=== PATIENT | female | born 1930 | race Hispanic/Latino ===

== ENCOUNTER 2016-06-14 23:21 | Inpatient (IN) | payer MEDICARE ==
--- NOTE | 2016-06-14 23:37 | C.PDOC ---
History Of Present Illness [facility] with worsening lower extremities edema, rash, worsening since friday, and some wheezing. 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 Rash is about the same, as per her daughter, but the blisters are new. No f/c/n/v, Speaking in complete sentences Time Seen by Provider: 06/14/16 23:37 Chief Complaint (Nursing): Lower Extremity Problem/Injury History Per: Patient, Family History/Exam Limitations: no limitations Onset/Duration Of Symptoms: Days Current Symptoms Are (Timing): Worse Severity: Moderate Pain Scale Rating Of: 4 Recent travel outside of the [place]: No Additional History Per: Family - Hip Description Of Injury: Other Past Medical History Reviewed: Historical Data, Nursing Documentation, Vital Signs Vital Signs: Last Vital Signs Temp 98.7 F 06/14/16 23:32 Pulse 113 H 06/14/16 23:32 Resp 24 06/14/16 23:32 BP 142/54 L 06/14/16 23:32 Pulse Ox 95 06/15/16 00:59 - Medical History PMH: Arthritis, Diverticulitis (Diverticulosis), Gastritis, HTN, Hypercholesterolemia Denies: Crohn's Disease, Gall Bladder Disease, HIV, Pancreatitis, Chronic Kidney Disease Surgical History: Tonsillectomy (1934) - [facility] Procedures DRAIN FACE & MOUTH FLOOR (11/25/13) SURG TOOTH EXTRACT NEC (11/25/13) Family History: States: No Known Family Hx - Social History Hx Alcohol Use: No Hx Substance Use: No - Immunization History Hx Tetanus Toxoid Vaccination: No Hx Influenza Vaccination: Yes Hx Pneumococcal Vaccination: Yes Review Of Systems Constitutional: Negative for: Fever, Chills ENT: Negative for: Throat Pain Cardiovascular: Negative for: Chest Pain, Palpitations Respiratory: Positive for: Wheezing Gastrointestinal: Negative for: Nausea, Vomiting, Abdominal Pain Genitourinary: Negative for: Dysuria Musculoskeletal: Positive for: Leg Pain, Foot Pain. Negative for: Back Pain Skin: Positive for: Rash (both legs), Bruising. Negative for: Lesions, Jaundice Neurological: Negative for: Weakness Psych: Negative for: Anxiety Physical Exam - Physical Exam Appears: Non-toxic Skin: Warm, Rash (erythema, ? bullae/blisters from below the knees( both legs)) Head: Atraumatic Eye(s): bilateral: Normal Inspection Oral Mucosa: Moist Throat: No Erythema Neck: Supple Chest: Symmetrical Cardiovascular: Rhythm Regular Respiratory: No Rales, No Rhonchi, Wheezing (few) Gastrointestinal/Abdominal: Soft, No Tenderness, No Distention Back: Normal Inspection Extremity: No Tenderness, Pedal Edema (pitting to mid thigh), Swelling, Other ( erythematous rash with few blisters both legs) Neurological/Psych: Oriented x3, Normal Speech, Normal Cognition Gait: Unable To Assess ED Course And Treatment - Laboratory Results Result Diagrams: 06/14/16 23:53 06/14/16 23:53 ECG: Interpreted By Me, Viewed By Me ECG Rhythm: Sinus Tachycardia (112), R BBB, Nonspecific Changes O2 Sat by Pulse Oximetry: 95 Pulse Ox Interpretation: Normal - Radiology CXR: Interpreted by Me, Viewed By Me CXR Interpretation: Yes: Other (top nl heart, unchanged from 05/28/16). No: Infiltrates, Fracture, Pnemothorax Progress Note: blood work, ivf,. spoke with dr rivero(icu) will come and see the pt in the ed Critical Care Time - Critical Care Note Total Time (in mins): 30 Documented critical care: time excludes all time spent performing seperately billable procedures. Disposition Discussed With : Yazmin Smith Comment: accepted the pt on his service and took over the care at 12:54 AM Doctor Will See Patient In The: ED Counseled Patient/Family Regarding: Studies Performed, Diagnosis - Disposition Disposition: HOSPITALIZED Disposition Time: 23:37 Condition: CRITICAL - POA Present On Arrival: Poor Glycemic Control - Clinical Impression Clinical Impression: Arterial, arteriole and capillary disease, Acute renal failure, Acidosis, CHF ( congestive heart failure), Hyponatremia
[2016-06-14 23:49] VITALS: BMI 25.8
[2016-06-14 23:58] LABS: LYMPH # 4.2 K/uL (1.0-4.3); MONO # 0.6 K/uL (0.0-0.8)
[2016-06-15 00:09] LABS: BASO % 0.1 % (0.0-2.0); HEMATOCRIT 23.1 % (34.0-47.0); LYMPH % 20.1 % (20.0-40.0); MEAN CELL VOLUME 93.9 fL (81.0-99.0); MEAN CORPUSCULAR HEMOGLOBIN 32.4 pg (27.0-31.0); MEAN CORPUSCULAR HGB CONC 34.5 g/dL (33.0-37.0); MEAN PLATELET VOLUME 8.2 fL (7.2-11.7); MONO % 2.9 % (0.0-10.0); NRBC % 0.1 % (0.0-2.0); RED CELL DISTRIBUTION WIDTH 15.2 % (11.5-14.5)
[2016-06-15 00:11] LABS: POTASSIUM 4.8 mmol/L (3.6-5.2)
[2016-06-15 00:12] LABS: VENOUS BLOOD GAS BASE EXCESS -20.8 mmol/L (0.0-2.0); VENOUS BLOOD GAS PCO2 35 mmHg (40-60); VENOUS BLOOD PH 7.03 (7.32-7.43)
[2016-06-15 00:13] LABS: ALB/GLOB RATIO 1.1 (1.0-2.1); BILIRUBIN,TOTAL 0.5 mg/dL (0.2-1.3); TOTAL PROTEIN 4.3 g/dL (6.3-8.3)
[2016-06-15 00:14] LABS: CALCIUM 6.6 mg/dl (8.6-10.4)
[2016-06-15 00:16] LABS: PLATELET COUNT 185 K/uL (130-400); WHITE BLOOD COUNT 20.8 K/uL (4.8-10.8)
[2016-06-15 00:36] LABS: INR 1.2
[2016-06-15 00:50] LABS: TROPONIN I 0.132 ng/mL (0.00-0.120)
--- NOTE | 2016-06-15 01:32 | CP.CCUPN ---
CCU Subjective - Physician Review Events Since Last Encounter (Free Text): 06/15/16 01:28 86yo [place] with swelling and erythema of legs. Pt was recently [place] [facility] [place] after being treated for UTI . Pt seen and examined at bedside. Pt stated that for the past one week her legs were getting more swollen and "more red". She went to see a environmental resource specialist who prescribed her ABx, however she did not see improvement and was told by PMD to go to ED. Pt denies any chills, fever, chest pain, palpitations, shortness of breath, cough, nausea, vomiting, diarrhea, dysuria. Pt is hemodynamically stable and is comfortable on NC , speaking full sentences. PMH: HTN, HLD, UTI, diverticulitis, CKD CCU Objective - Vital Signs / Intake & Output Vital Signs (Last 4 hours): Vital Signs Temp Pulse Resp BP Pulse Ox 06/15/16 00:59 95 06/14/16 23:32 98.7 F 113 H 24 142/54 L 95 Intake and Output (Last 8hrs): Intake & Output 06/14/16 06/14/16 06/15/16 14:59 22:59 06:59 Weight 145 lb 15.947 oz - Physical Exam Head: Positive for: Atraumatic, Normocephalic Pupils: Positive for: PERRL Conjunctiva: Positive for: Normal Mouth: Positive for: Moist Mucous Membranes Neck: Positive for: Normal Range of Motion Respiratory/Chest: Positive for: Clear to Auscultation, Good Air Exchange. Negative for: Respiratory Distress Cardiovascular: Positive for: Murmurs, Tachycardic Abdomen: Positive for: Normal Bowel Sounds. Negative for: Tenderness, Distention Back: Negative for: CVA Tenderness Upper Extremity: Positive for: Normal Inspection Lower Extremity: Positive for: Edema, Erythema Neurological: Positive for: Speech Normal, Motor Func Grossly Intact Skin: Positive for: Warm, Dry, Rashes (B\\L LE) Psychiatric: Positive for: Alert, Oriented x 3, Normal Insight - Patient Studies Lab Studies: Lab Studies 06/15/16 06/15/16 06/14/16 Range/Units 00:07 00:00 23:53 WBC 20.8 H D (4.8-10.8) K/uL RBC 2.46 L (3.80-5.20) Mil/uL Hgb 8.0 L (11.0-16.0) g/dL Hct 23.1 L (34.0-47.0) % MCV 93.9 (81.0-99.0) fL MCH 32.4 H (27.0-31.0) pg MCHC 34.5 (33.0-37.0) g/dL RDW 15.2 H (11.5-14.5) % Plt Count 185 (130-400) K/uL MPV 8.2 (7.2-11.7) fL Neut % (Auto) 76.9 H (50.0-75.0) % Lymph % (Auto) 20.1 (20.0-40.0) % [place] % (Auto) 2.9 (0.0-10.0) % Eos % (Auto) 0.0 (0.0-4.0) % Baso % (Auto) 0.1 (0.0-2.0) % Neut # 16.0 H (1.8-7.0) K/uL Lymph # 4.2 (1.0-4.3) K/uL [place] # 0.6 (0.0-0.8) K/uL Eos # 0.0 (0.0-0.7) K/uL Baso # 0.0 (0.0-0.2) K/uL PT 13.0 H (9.7-12.2) SECONDS INR 1.2 APTT 23 (21-34) SECONDS pO2 58 H (30-55) mm/Hg VBG pH 7.03 L* (7.32-7.43) VBG pCO2 35 L (40-60) mmHg VBG HCO3 8.0 mmol/L VBG Total CO2 10.3 L (22-28) mmol/L VBG O2 Sat (Calc) 85.9 H (40-65) % VBG Base Excess -20.8 L (0.0-2.0) mmol/L VBG Potassium 14.9 H* (3.6-5.2) mmol/L Sodium 130.0 L 120 L* (132-148) mmol/l Chloride 106.0 93 L (98-107) mmol/L Glucose 91 (65-105) mg/dl Lactate 0.7 (0.7-2.1) mmol/L Crit Value Called To Dr. rodriguez Crit Value Called By Elizabeth stainless steel finisher Crit Value Read Back Y Blood Gas Notified Time 12 Potassium 4.8 (3.6-5.2) mmol/L Carbon Dioxide 15 L (22-30) mmol/L Anion Gap 17 (10-20) BUN 160 H* D (7-17) mg/dL Creatinine 4.3 H (0.7-1.2) MG/DL Est GFR ( Amer) 12 Est GFR (Non-Af Amer) 10 Random Glucose 116 H (65-105) mg/dL Calcium 6.6 L (8.6-10.4) mg/dl Total Bilirubin 0.5 (0.2-1.3) mg/dL AST 24 (14-36) U/L ALT 35 (9-52) U/L Alkaline Phosphatase 74 (38-126) U/L Troponin I 0.1320 H* (0.00-0.120) ng/mL C-React Prot High Sens > 15.00 H (1.00-3.00) mg/L NT-Pro-B Natriuret Pep 65370 H (0-900) pg/mL Total Protein 4.3 L (6.3-8.3) g/dL Albumin 2.2 L D (3.5-5.0) g/dL Globulin 2.0 L (2.2-3.9) gm/dL Albumin/Globulin Ratio 1.1 (1.0-2.1) Venous Blood Potassium 14.9 H* (3.6-5.2) mmol/L Laboratory Results - last 24 hr 06/14/16 06/15/16 06/15/16 23:53 00:00 00:07 WBC 20.8 H D RBC 2.46 L Hgb 8.0 L Hct 23.1 L MCV 93.9 MCH 32.4 H MCHC 34.5 RDW 15.2 H Plt Count 185 MPV 8.2 Neut % (Auto) 76.9 H Lymph % (Auto) 20.1 [place] % (Auto) 2.9 Eos % (Auto) 0.0 Baso % (Auto) 0.1 Neut # 16.0 H Lymph # 4.2 [place] # 0.6 Eos # 0.0 Baso # 0.0 PT 13.0 H INR 1.2 APTT 23 pO2 58 H VBG pH 7.03 L* VBG pCO2 35 L VBG HCO3 8.0 VBG Total CO2 10.3 L VBG O2 Sat (Calc) 85.9 H VBG Base Excess -20.8 L VBG Potassium 14.9 H* Glucose 91 Lactate 0.7 Crit Value Called To Dr. rodriguez Crit Value Called By Elizabeth stainless steel finisher Crit Value Read Back Y Blood Gas Notified Time 12 Sodium 120 L* 130.0 L Potassium 4.8 Chloride 93 L 106.0 Carbon Dioxide 15 L Anion Gap 17 BUN 160 H* D Creatinine 4.3 H Est GFR ( Amer) 12 Est GFR (Non-Af Amer) 10 Random Glucose 116 H Calcium 6.6 L Total Bilirubin 0.5 AST 24 ALT 35 Alkaline Phosphatase 74 Troponin I 0.1320 H* C-React Prot High Sens > 15.00 H NT-Pro-B Natriuret Pep 87261 H Total Protein 4.3 L Albumin 2.2 L D Globulin 2.0 L Albumin/Globulin Ratio 1.1 Venous Blood Potassium 14.9 H* EKG/Cardiology Studies: Cardiology / EKG Studies 06/14/16 23:39 ELECTROCARDIOGRAM Stat Comment: Mode Of Transportation: BED Reason For Exam: SOB Review of Systems - Review of Systems Systems not reviewed;Unavailable: Acuity of Condition All systems: reviewed and no additional remarkable complaints except Critical Care Progress Note - Ventilator Checklist Head of Bed 30 Degrees: Yes PUD Prophalyxis: Yes DVT Prophylaxis: Yes Assessment/Plan - Assessment and Plan (Free Text) Plan: Sepsis \\ Cellulitis \\ JONNY on CKD \\ Hyponatremia \\ CHF -hemodynamic monitoring to maintain MAP>65; currently stable -o2 supplementation to maintain Spo2 >90 Pao2>60; comfortable on NC -CXR reviewed, no consolidation noted (pls f\\u official read) -start broad spectrum Abx and f\\u cultures -ID team eval -f\\u Bun\\Cr and U\\o; place folley catheter; f\\u renal sono -f\\u serial Na levels and Urine e-lites; of note pt was discharged in may with Na of 121 and bun\\cr 69\\3.3 -renal team evaluation -PO diet and aspiration precautions -elevate LE -wound care eval -f\\u LE duplex -DVT \\ PUD prophylaxis CCM eval 40min
[2016-06-15 01:43] LABS: METAMYELOCYTE 1 % (0-0); MYELOCYTE 5 % (0-0); NEUTROPHIL 54 % (50-75); REACTIVE LYMPHOCYTES 6 % (0-0); TOTAL CELLS COUNTED 100
[2016-06-15] MEDS ORDERED: Vancomycin 1 gm/NS 200 ml 200 ML IVPB STA (02:06)
[2016-06-15 02:17] LABS: RBC URINE 928 /hpf (0-3); URINE BACTERIA OCC (<OCC); URINE BILIRUBIN NEGATIVE (NEGATIVE); URINE BLOOD 3+ (NEGATIVE); URINE COLOR Amber (YELLOW); URINE GLUCOSE (UA) NORMAL (Normal); URINE KETONE NEGATIVE (NEGATIVE); URINE LEUKOCYTE ESTERASE 1+ Leu/uL (Negative); URINE PROTEIN 2+ mg/dL (NEGATIVE); URINE UROBILINOGEN NORMAL mg/dL (0.2-1.0); WBC URINE 82 /hpf (0-5)
[2016-06-15] MEDS: Cefepime IV 1 gm in Dextrose 50 ML IVPB SCH ×2 (02:38→13:24)
[2016-06-15] MEDS: metroNIDAZOLE IV 500 mg/100 ml 100 ML IVPB SCH ×3 (03:00→17:46)
[2016-06-15 06:52] LABS: EOS % 0.1 % (0.0-4.0); HEMATOCRIT 21.3 % (34.0-47.0); LYMPH # 3.8 K/uL (1.0-4.3); LYMPH % 21.5 % (20.0-40.0); MEAN CELL VOLUME 93.9 fL (81.0-99.0); MEAN CORPUSCULAR HEMOGLOBIN 32.8 pg (27.0-31.0); MEAN CORPUSCULAR HGB CONC 34.9 g/dL (33.0-37.0); MEAN PLATELET VOLUME 8.8 fL (7.2-11.7); MONO # 0.5 K/uL (0.0-0.8); MONO % 2.8 % (0.0-10.0); RED CELL DISTRIBUTION WIDTH 15.1 % (11.5-14.5); WHITE BLOOD COUNT 17.8 K/uL (4.8-10.8)
[2016-06-15 06:57] LABS: POTASSIUM 4.6 mmol/L (3.6-5.2)
[2016-06-15 06:59] LABS: BILIRUBIN,TOTAL 0.2 mg/dL (0.2-1.3)
[2016-06-15 07:00] LABS: ALB/GLOB RATIO 0.9 (1.0-2.1); CALCIUM 6.7 mg/dl (8.6-10.4); PHOSPHOROUS 9.4 mg/dL (2.5-4.5); TOTAL PROTEIN 4.2 g/dL (6.3-8.3)
[2016-06-15 07:01] LABS: MAGNESIUM 1.6 mg/dL (1.6-2.3)
--- NOTE | 2016-06-15 09:41 | RAD ---
PROCEDURE: CHEST RADIOGRAPH, 1 VIEW HISTORY: Shortness of breath COMPARISON: 05/28/2016 FINDINGS: LUNGS: Moderate venous congestion. Prominent left basilar opacity with moderate left pleural effusion. PLEURA: As above. CARDIOVASCULAR: Cardiomegaly. OSSEOUS STRUCTURES: Degenerative changes in the spine and shoulders. VISUALIZED UPPER ABDOMEN: Normal. OTHER FINDINGS: None. IMPRESSION: Moderate venous congestion. Prominent left basilar opacity with moderate left pleural effusion.
[2016-06-15] MEDS: Pantoprazole 40 mg EC Tab PO SCH (10:23)
[2016-06-15] MEDS: Sodium Bicarbonate 8.4% 150 MEQ in Dextrose 5% In Water 850 ML IV SCH ×4 (11:21→21:46)
--- NOTE | 2016-06-15 11:49 | US ---
Renal ultrasound History: Acute kidney disease. Comparison: None available. Technique: Real-time sonography was performed through the kidneys. Findings: Right kidney: 11.3 x 5.5 x 4.9 centimeters. Increased echogenicity of the renal cortex suggestive for medical renal disease. Upper pole hypoechoic cyst measuring 5.0 x 3.6 x 3.6 centimeters. No calculi or hydronephrosis. Left Kidney: 11.5 x 5.2 x 5.0 centimeters. Increased echogenicity of the renal cortex suggestive for medical renal disease. No calculi or hydronephrosis. Visualized aorta is preserved. Jeffries catheter in an underdistended urinary bladder. Impression: Increased echogenicity of the bilateral renal cortices suggestive for medical renal disease. 5 centimeter upper pole right renal cyst.
--- NOTE | 2016-06-15 14:31 | CP.PCM.HP ---
Past Patient History - Infectious Disease Hx of Infectious Diseases: None - Past Medical History & Family History Past Medical History?: Yes - Past Social History Smoking Status: Never Smoked - CARDIAC Hx Hypercholesterolemia: Yes Hx Hypertension: Yes - PULMONARY Hx Respiratory Disorders: No - NEUROLOGICAL Hx Neurological Disorder: No - HEENT Hx HEENT Problems: Yes Hx Cataracts: Yes - RENAL Hx Chronic Kidney Disease: No - ENDOCRINE/METABOLIC Hx Endocrine Disorders: No - HEMATOLOGICAL/ONCOLOGICAL Hx Human Immunodeficiency Virus (HIV): No - INTEGUMENTARY Hx Dermatological Problems: Yes Hx Cellulitis: Yes (jaw) - MUSCULOSKELETAL/RHEUMATOLOGICAL Hx Arthritis: Yes Hx Falls: No - GASTROINTESTINAL Hx Crohn's Disease: No Hx Diverticulitis: Yes (Diverticulosis) Hx Gall Bladder Disease: No Hx Gastritis: Yes Hx Pancreatitis: No - GENITOURINARY/GYNECOLOGICAL Hx Genitourinary Disorders: No Hx Urinary Tract Infection: Yes (as above) - PSYCHIATRIC Hx Substance Use: No - SURGICAL HISTORY Hx Tonsillectomy: Yes (1933) - ANESTHESIA Hx Anesthesia: Yes Hx Anesthesia Reactions: No Hx Malignant Hyperthermia: No Meds Allergies/Adverse Reactions: Allergies Allergy/AdvReac Type Severity Reaction Status Date / Time No Known Allergies Allergy Verified 06/14/16 23:40 Physical Exam - Constitutional Appears: Well - Head Exam Head Exam: ATRAUMATIC, NORMAL INSPECTION, NORMOCEPHALIC - Eye Exam Eye Exam: EOMI, Normal appearance, PERRL Pupil Exam: NORMAL ACCOMODATION, PERRL - ENT Exam ENT Exam: Mucous Membranes Moist, Normal Exam - Neck Exam Neck exam: Positive for: Normal Inspection - Respiratory Exam Respiratory Exam: Decreased Breath Sounds - Cardiovascular Exam Cardiovascular Exam: REGULAR RHYTHM, +S1, +S2 - GI/Abdominal Exam GI & Abdominal Exam: Diminished Bowel Sounds, Soft - Rectal Exam Rectal Exam: Deferred Results - Vital Signs Recent Vital Signs: Last Vital Signs Temp 98.1 F 06/15/16 14:02 Pulse 107 H 06/15/16 14:02 Resp 23 06/15/16 14:02 BP 149/62 06/15/16 14:02 Pulse Ox 96 06/15/16 07:00 - Labs Result Diagrams: 06/15/16 06:47 06/15/16 06:42 Labs: Laboratory Results - last 24 hr 06/15/16 06/15/16 06/15/16 06:42 06:47 06:50 WBC 17.8 H RBC 2.27 L Hgb 7.4 L Hct 21.3 L MCV 93.9 MCH 32.8 H MCHC 34.9 RDW 15.1 H Plt Count 125 L D MPV 8.8 Neut % (Auto) 75.6 H Lymph % (Auto) 21.5 [place] % (Auto) 2.8 Eos % (Auto) 0.1 Baso % (Auto) 0.0 Neut # 13.5 H Lymph # 3.8 [place] # 0.5 Eos # 0.0 Baso # 0.0 Differential Comment APTT 25 Sodium 129 L Potassium 4.6 Chloride 94 L Carbon Dioxide 15 L Anion Gap 25 H BUN 160 H* Creatinine 4.3 H Est GFR ( Amer) 12 Est GFR (Non-Af Amer) 10 Random Glucose 94 Calcium 6.7 L Phosphorus 9.4 H Magnesium 1.6 Total Bilirubin 0.2 AST 23 ALT 39 Alkaline Phosphatase 70 Total Protein 4.2 L Albumin 2.0 L Globulin 2.2 Albumin/Globulin Ratio 0.9 L Blood Type Blood Type Confirm Antibody Screen 06/15/16 09:43 WBC RBC Hgb Hct MCV MCH MCHC RDW Plt Count MPV Neut % (Auto) Lymph % (Auto) [place] % (Auto) Eos % (Auto) Baso % (Auto) Neut # Lymph # [place] # Eos # Baso # Differential Comment APTT Sodium Potassium Chloride Carbon Dioxide Anion Gap BUN Creatinine Est GFR ( Amer) Est GFR (Non-Af Amer) Random Glucose Calcium Phosphorus Magnesium Total Bilirubin AST ALT Alkaline Phosphatase Total Protein Albumin Globulin Albumin/Globulin Ratio Blood Type O POSITIVE Blood Type Confirm O POSITIVE Antibody Screen Negative
[2016-06-15 15:14] LABS: CALCIUM 6.4 mg/dl (8.6-10.4); POTASSIUM 4.6 mmol/L (3.6-5.2)
[2016-06-15 20:52] LABS: POTASSIUM 4.5 mmol/L (3.6-5.2)
[2016-06-15 20:56] LABS: CALCIUM 6.1 mg/dl (8.6-10.4)
[2016-06-16] MEDS: metroNIDAZOLE IV 500 mg/100 ml 100 ML IVPB SCH ×3 (01:05→17:13)
[2016-06-16 04:30] LABS: BASO % 0.1 % (0.0-2.0); EOS % 0.1 % (0.0-4.0); LYMPH # 3.1 K/uL (1.0-4.3)
[2016-06-16 04:40] LABS: CHLORIDE 90 mmol/L (98-107); POTASSIUM 4.4 mmol/L (3.6-5.2); SODIUM 128 mmol/L (132-148)
[2016-06-16 04:42] LABS: ALB/GLOB RATIO 0.9 (1.0-2.1); AST/SGOT 27 U/L (14-36); BILIRUBIN,TOTAL 0.5 mg/dL (0.2-1.3); CARBON DIOXIDE 20 mmol/L (22-30); GFR AFRICAN-AMERICAN 12; LYMPH % 17.4 % (20.0-40.0); MEAN CORPUSCULAR HEMOGLOBIN 32.6 pg (27.0-31.0); MEAN CORPUSCULAR HGB CONC 35.9 g/dL (33.0-37.0); MEAN PLATELET VOLUME 8.6 fL (7.2-11.7); MONO # 0.2 K/uL (0.0-0.8); MONO % 1.3 % (0.0-10.0); NRBC % 0.1 % (0.0-2.0); RED CELL DISTRIBUTION WIDTH 14.9 % (11.5-14.5); TOTAL PROTEIN 3.8 g/dL (6.3-8.3); WHITE BLOOD COUNT 17.9 K/uL (4.8-10.8)
[2016-06-16 04:43] LABS: ALKALINE PHOSPHATASE 53 U/L (38-126); ALT/SGPT 39 U/L (9-52); GLUCOSE,RANDOM 113 mg/dL (65-105); PHOSPHOROUS 8.9 mg/dL (2.5-4.5)
[2016-06-16 04:44] LABS: MAGNESIUM 1.5 mg/dL (1.6-2.3)
[2016-06-16 05:00] LABS: BLOOD UREA NITROGEN > 120 mg/dL (7-17); CALCIUM 5.9 mg/dl (8.6-10.4)
[2016-06-16] MEDS: Sodium Bicarbonate 8.4% 150 MEQ in Dextrose 5% In Water 850 ML IV SCH ×4 (05:24→20:30)
[2016-06-16] MEDS: Pantoprazole 40 mg EC Tab PO SCH (09:15)
--- NOTE | 2016-06-16 11:32 | CP.CCUPN ---
CCU Subjective - Physician Review Events Since Last Encounter (Free Text): 06/16/16 11:31 86-year-old female a [place] resident recently hospitalized with a cellulitis came to the emergency room with the bilateral leg swelling, redness, and associated with the pain and itching. Patient also having mildly dyspneic. Patient is awake and responding. Currently she is not feeling bad, no abdominal pain noted, denies any nausea. But complaining of not able to eat, weakness, and the edema in the legs. Vital signs reviewed Temp Pulse Resp BP Pulse Ox 98.5 F 112 H 32 H 146/63 96 06/16/16 08:00 06/16/16 09:14 06/16/16 09:14 06/16/16 09:14 06/16/16 09:14 Chest bilateral good air entry, regular heart sound, nontender abdomen, except minimal suprapubic tenderness. Bilateral leg swelling noted, edema noted, and associated with the redness and the scaling skin in the bilateral extremities noted Labs reviewed Assessment a condition: Worsening renal insufficiency, generalized edema, and hyponatremia. 86-year-old female with the care home resident admitted to the hospital with acute bilateral cellulitis. Underlying drug-induced thrombocytopenia condition cannot be ruled out, but the platelets is normal. We'll discontinue the heparin for now. Closely monitor the patient. GI prophylaxis. We'll follow the patient CCU Objective - Vital Signs / Intake & Output Vital Signs (Last 4 hours): Vital Signs Temp Pulse Resp BP Pulse Ox 06/16/16 09:14 112 H 32 H 146/63 96 06/16/16 09:00 112 H 34 H 97 06/16/16 08:14 110 H 21 132/53 L 97 06/16/16 08:00 98.5 F 113 H 30 H 98 Intake and Output (Last 8hrs): Intake & Output 06/15/16 06/16/16 06/16/16 21:59 06:59 14:59 Intake Total 250 Output Total 30 Balance 220 Weight Intake: Intake, IV Amount 250 Left Antecubital 250 Right Hand Left Wrist Left Wrist Blood Product Red Blood Cells Cpd As1 Lr Unit [id number] Other Output: Urine 30 Urethral (Jeffries) 30 - Physical Exam Head: Positive for: Atraumatic, Normocephalic Pupils: Positive for: PERRL Conjunctiva: Positive for: Normal Mouth: Positive for: Moist Mucous Membranes Neck: Positive for: Normal Range of Motion Respiratory/Chest: Positive for: Clear to Auscultation, Good Air Exchange. Negative for: Respiratory Distress Cardiovascular: Positive for: Murmurs, Tachycardic Abdomen: Positive for: Normal Bowel Sounds. Negative for: Tenderness, Distention Back: Negative for: CVA Tenderness Upper Extremity: Positive for: Normal Inspection Lower Extremity: Positive for: Edema, Erythema Neurological: Positive for: Speech Normal, Motor Func Grossly Intact Skin: Positive for: Warm, Dry, Rashes (B\L LE) Psychiatric: Positive for: Alert, Oriented x 3, Normal Insight - Medications Active Medications: Active Medications Generic Name Dose Route Start Last Admin Trade Name Freq PRN Reason Stop Dose Admin Metronidazole 100 mls @ 100 mls/hr 06/15/16 02:00 06/16/16 09:30 Flagyl IVPB 100 mls/hr Q8H UTE Administration Cefepime HCl 50 mls @ 100 mls/hr 06/16/16 13:30 Maxipime Iv 1 Gm Premix IVPB Q24H UTE Sodium Bicarbonate 150 meq/ 1,000 mls @ 100 mls/hr 06/16/16 10:27 Dextrose IV .Q10H UTE Pantoprazole Sodium 40 mg 06/15/16 10:00 06/16/16 09:15 Protonix Ec Tab PO 40 mg DAILY UTE Administration - Patient Studies Lab Studies: Lab Studies 06/16/16 06/15/16 06/15/16 Range/Units 04:25 20:41 14:15 WBC 17.9 H (4.8-10.8) K/uL RBC 2.74 L (3.80-5.20) Mil/uL Hgb 8.9 L (11.0-16.0) g/dL Hct 25.0 L (34.0-47.0) % MCV 91.0 D (81.0-99.0) fL MCH 32.6 H (27.0-31.0) pg MCHC 35.9 (33.0-37.0) g/dL RDW 14.9 H (11.5-14.5) % Plt Count 186 (130-400) K/uL MPV 8.6 (7.2-11.7) fL Neut % (Auto) 81.1 H (50.0-75.0) % Lymph % (Auto) 17.4 L (20.0-40.0) % [place] % (Auto) 1.3 (0.0-10.0) % Eos % (Auto) 0.1 (0.0-4.0) % Baso % (Auto) 0.1 (0.0-2.0) % Neut # 14.5 H (1.8-7.0) K/uL Lymph # 3.1 (1.0-4.3) K/uL [place] # 0.2 (0.0-0.8) K/uL Eos # 0.0 (0.0-0.7) K/uL Baso # 0.0 (0.0-0.2) K/uL Differential Comment Sodium 128 L 125 L 128 L (132-148) mmol/L Potassium 4.4 4.5 4.6 (3.6-5.2) mmol/L Chloride 90 L 91 L 94 L (98-107) mmol/L Carbon Dioxide 20 L 17 L 16 L (22-30) mmol/L Anion Gap 22 H 22 H 23 H (10-20) BUN > 120 H* D 167 H* 164 H* (7-17) mg/dL Creatinine 4.1 H 3.9 H 4.3 H (0.7-1.2) MG/DL Est GFR ( Amer) 12 13 12 Est GFR (Non-Af Amer) 10 11 10 Random Glucose 113 H 113 H 119 H (65-105) mg/dL Calcium 5.9 L* 6.1 L 6.4 L (8.6-10.4) mg/dl Phosphorus 8.9 H (2.5-4.5) mg/dL Magnesium 1.5 L (1.6-2.3) mg/dL Total Bilirubin 0.5 (0.2-1.3) mg/dL AST 27 (14-36) U/L ALT 39 (9-52) U/L Alkaline Phosphatase 53 (38-126) U/L Total Protein 3.8 L (6.3-8.3) g/dL Albumin 1.8 L (3.5-5.0) g/dL Globulin 2.0 L (2.2-3.9) gm/dL Albumin/Globulin Ratio 0.9 L (1.0-2.1) Blood Type Blood Type Confirm Antibody Screen 06/15/16 06/15/16 Range/Units 09:43 06:47 WBC (4.8-10.8) K/uL RBC (3.80-5.20) Mil/uL Hgb (11.0-16.0) g/dL Hct (34.0-47.0) % MCV (81.0-99.0) fL MCH (27.0-31.0) pg MCHC (33.0-37.0) g/dL RDW (11.5-14.5) % Plt Count (130-400) K/uL MPV (7.2-11.7) fL Neut % (Auto) (50.0-75.0) % Lymph % (Auto) (20.0-40.0) % [place] % (Auto) (0.0-10.0) % Eos % (Auto) (0.0-4.0) % Baso % (Auto) (0.0-2.0) % Neut # (1.8-7.0) K/uL Lymph # (1.0-4.3) K/uL [place] # (0.0-0.8) K/uL Eos # (0.0-0.7) K/uL Baso # (0.0-0.2) K/uL Differential Comment Sodium (132-148) mmol/L Potassium (3.6-5.2) mmol/L Chloride (98-107) mmol/L Carbon Dioxide (22-30) mmol/L Anion Gap (10-20) BUN (7-17) mg/dL Creatinine (0.7-1.2) MG/DL Est GFR ( Amer) Est GFR (Non-Af Amer) Random Glucose (65-105) mg/dL Calcium (8.6-10.4) mg/dl Phosphorus (2.5-4.5) mg/dL Magnesium (1.6-2.3) mg/dL Total Bilirubin (0.2-1.3) mg/dL AST (14-36) U/L ALT (9-52) U/L Alkaline Phosphatase (38-126) U/L Total Protein (6.3-8.3) g/dL Albumin (3.5-5.0) g/dL Globulin (2.2-3.9) gm/dL Albumin/Globulin Ratio (1.0-2.1) Blood Type O POSITIVE Blood Type Confirm O POSITIVE Antibody Screen Negative Laboratory Results - last 24 hr 06/15/16 06/15/16 06/15/16 06:47 09:43 14:15 WBC RBC Hgb Hct MCV MCH MCHC RDW Plt Count MPV Neut % (Auto) Lymph % (Auto) [place] % (Auto) Eos % (Auto) Baso % (Auto) Neut # Lymph # [place] # Eos # Baso # Differential Comment Sodium 128 L Potassium 4.6 Chloride 94 L Carbon Dioxide 16 L Anion Gap 23 H BUN 164 H* Creatinine 4.3 H Est GFR ( Amer) 12 Est GFR (Non-Af Amer) 10 Random Glucose 119 H Calcium 6.4 L Phosphorus Magnesium Total Bilirubin AST ALT Alkaline Phosphatase Total Protein Albumin Globulin Albumin/Globulin Ratio Blood Type O POSITIVE Blood Type Confirm O POSITIVE Antibody Screen Negative 06/15/16 06/16/16 20:41 04:25 WBC 17.9 H RBC 2.74 L Hgb 8.9 L Hct 25.0 L MCV 91.0 D MCH 32.6 H MCHC 35.9 RDW 14.9 H Plt Count 186 MPV 8.6 Neut % (Auto) 81.1 H Lymph % (Auto) 17.4 L [place] % (Auto) 1.3 Eos % (Auto) 0.1 Baso % (Auto) 0.1 Neut # 14.5 H Lymph # 3.1 [place] # 0.2 Eos # 0.0 Baso # 0.0 Differential Comment Sodium 125 L 128 L Potassium 4.5 4.4 Chloride 91 L 90 L Carbon Dioxide 17 L 20 L Anion Gap 22 H 22 H BUN 167 H* > 120 H* D Creatinine 3.9 H 4.1 H Est GFR ( Amer) 13 12 Est GFR (Non-Af Amer) 11 10 Random Glucose 113 H 113 H Calcium 6.1 L 5.9 L* Phosphorus 8.9 H Magnesium 1.5 L Total Bilirubin 0.5 AST 27 ALT 39 Alkaline Phosphatase 53 Total Protein 3.8 L Albumin 1.8 L Globulin 2.0 L Albumin/Globulin Ratio 0.9 L Blood Type Blood Type Confirm Antibody Screen Critical Care Progress Note - Nutrition Nutrition: Nutrition Category Date Time Status Renal Diet [DIET] Diets 06/15/16 Breakfast Active
[2016-06-16] MEDS: Cefepime IV 1 gm in Dextrose 50 ML IVPB SCH (13:30)
--- NOTE | 2016-06-16 15:34 | CP.PCM.CON ---
History of Present Illness - History of Present Illness History of Present Illness: dictated Past Patient History - Infectious Disease Hx of Infectious Diseases: None - Past Medical History & Family History Past Medical History?: Yes - Past Social History Smoking Status: Never Smoked - CARDIAC Hx Hypercholesterolemia: Yes Hx Hypertension: Yes - PULMONARY Hx Respiratory Disorders: No - NEUROLOGICAL Hx Neurological Disorder: No - HEENT Hx HEENT Problems: Yes Hx Cataracts: Yes - RENAL Hx Chronic Kidney Disease: No - ENDOCRINE/METABOLIC Hx Endocrine Disorders: No - HEMATOLOGICAL/ONCOLOGICAL Hx Human Immunodeficiency Virus (HIV): No - INTEGUMENTARY Hx Dermatological Problems: Yes Hx Cellulitis: Yes (jaw) - MUSCULOSKELETAL/RHEUMATOLOGICAL Hx Arthritis: Yes Hx Falls: No - GASTROINTESTINAL Hx Crohn's Disease: No Hx Diverticulitis: Yes (Diverticulosis) Hx Gall Bladder Disease: No Hx Gastritis: Yes Hx Pancreatitis: No - GENITOURINARY/GYNECOLOGICAL Hx Genitourinary Disorders: No Hx Urinary Tract Infection: Yes (as above) - PSYCHIATRIC Hx Substance Use: No - SURGICAL HISTORY Hx Tonsillectomy: Yes (1933) - ANESTHESIA Hx Anesthesia: Yes Hx Anesthesia Reactions: No Hx Malignant Hyperthermia: No Meds Allergies/Adverse Reactions: Allergies Allergy/AdvReac Type Severity Reaction Status Date / Time No Known Allergies Allergy Verified 06/14/16 23:40 - Medications Medications: Current Medications Metronidazole (Flagyl) 100 mls @ 100 mls/hr IVPB Q8H [facility] Last Admin: 06/16/16 09:30 Dose: 100 mls/hr Cefepime HCl (Maxipime Iv 1 Gm Premix) 50 mls @ 100 mls/hr IVPB Q24H [facility] Last Admin: 06/16/16 13:30 Dose: 100 mls/hr Sodium Bicarbonate 150 meq/ (Dextrose) 1,000 mls @ 100 mls/hr IV .Q10H [facility] Last Admin: 06/16/16 15:29 Dose: 100 mls/hr Pantoprazole Sodium (Protonix Ec Tab) 40 mg PO DAILY [facility] Last Admin: 06/16/16 09:15 Dose: 40 mg Results - Vital Signs Recent Vital Signs: Last Vital Signs Temp 98.5 F 06/16/16 08:00 Pulse 112 H 06/16/16 09:14 Resp 32 H 06/16/16 09:14 BP 146/63 06/16/16 09:14 Pulse Ox 96 06/16/16 09:14 - Labs Result Diagrams: 06/16/16 04:25 06/16/16 04:25 Labs: Laboratory Results - last 24 hr 06/15/16 06/15/16 06/16/16 14:15 20:41 04:25 WBC 17.9 H RBC 2.74 L Hgb 8.9 L Hct 25.0 L MCV 91.0 D MCH 32.6 H MCHC 35.9 RDW 14.9 H Plt Count 186 MPV 8.6 Neut % (Auto) 81.1 H Lymph % (Auto) 17.4 L [place] % (Auto) 1.3 Eos % (Auto) 0.1 Baso % (Auto) 0.1 Neut # 14.5 H Lymph # 3.1 [place] # 0.2 Eos # 0.0 Baso # 0.0 Differential Comment Sodium 128 L 125 L 128 L Potassium 4.6 4.5 4.4 Chloride 94 L 91 L 90 L Carbon Dioxide 16 L 17 L 20 L Anion Gap 23 H 22 H 22 H BUN 164 H* 167 H* > 120 H* D Creatinine 4.3 H 3.9 H 4.1 H Est GFR ( Amer) 12 13 12 Est GFR (Non-Af Amer) 10 11 10 Random Glucose 119 H 113 H 113 H Calcium 6.4 L 6.1 L 5.9 L* Phosphorus 8.9 H Magnesium 1.5 L Total Bilirubin 0.5 AST 27 ALT 39 Alkaline Phosphatase 53 Total Protein 3.8 L Albumin 1.8 L Globulin 2.0 L Albumin/Globulin Ratio 0.9 L
--- NOTE | 2016-06-16 15:43 | CP.PCM.CON ---
History of Present Illness - History of Present Illness History of Present Illness: pt presents from half-way with worsening lower extremities edema, rash, worsening since friday, and some wheezing. 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 Rash is about the same, as per her daughter, but the blisters are new. No f/c/n/v, Speaking in complete sentences - Medical History PMH: Arthritis, Diverticulitis (Diverticulosis), Gastritis, HTN, Hypercholesterolemia Denies: Crohn's Disease, Gall Bladder Disease, HIV, Pancreatitis, Chronic Kidney Disease Surgical History: Tonsillectomy (193) Review of Systems - Review of Systems All systems: reviewed and no additional remarkable complaints except - Constitutional Constitutional: Anorexia, Chills, Lethargy - EENT Eyes: absent: As Per HPI, Blind Spots, Blurred Vision, Change in Vision, Decreased Night Vision, Diplopia, Discharge, Dry Eye, Exophthalmos, Floaters, Irritation, Itchy Eyes, Loss of Peripheral Vision, Pain, Photophobia, Requires Corrective Lenses, Sees Flashes, Spots in Vision, Tunnel Vision, Other Visual Disturbances, Loss of Vision, Other Ears: absent: As Per HPI, Decreased Hearing, Ear Discharge, Ear Pain, Tinnitus, Abnormal Hearing, Disequilibrium, Dizziness, Other Nose/Mouth/Throat: absent: As Per HPI, Epistaxis, Nasal Congestion, Nasal Discharge, Nasal Obstruction, Nasal Trauma, Nose Pain, Post Nasal Drip, Sinus Pain, Sinus Pressure, Bleeding Gums, Change in Voice, Dental Pain, Dry Mouth, Dysphagia, Halitosis, Hoarsness, Lip Swelling, Mouth Lesions, Mouth Pain, Odynophagia, Sore Throat, Throat Swelling, Tongue Swelling, Facial Pain, Neck Pain, Neck Mass, Other - Breasts Breasts: absent: As Per HPI, Change in Shape, Mass, Pain, Nipple Discharge, Nipple Inversion, Skin Changes, Swelling, Other - Cardiovascular Cardiovascular: absent: As Per HPI, Acrocyanosis, Chest Pain, Chest Pain at Rest , Chest Pain with Activity, Claudication, Diaphoresis, Dyspnea, Dyspnea on Exertion, Edema, Irregular Heart Rhythm, Pain Radiating to Arm/Neck/Jaw, Leg Edema, Leg Ulcers, Lightheadedness, Orthopnea, Palpitations, Paroxysmal Nocturnal Dyspnea, Pedal Edema, Radiating Pain, Rapid Heart Rate, Slow Heart Rate, Syncope, Other - Respiratory Respiratory: absent: As Per HPI, Cough, Dyspnea, Hemoptysis, Dyspnea on Exertion , Wheezing, Snoring, Stridor, Pain on Inspiration, Chest Congestion, Excessive Mucous Production, Change in Mucous Color, Pain with Coughing, Other - Gastrointestinal Gastrointestinal: absent: As Per HPI, Abdominal Pain, Belching, Bloating, Change in Bowel Habits, Change in Stool Character, Coffee Ground Emesis, Constipation, Cramping, Diarrhea, Dyspepsia, Dysphagia, Early Satiety, Excessive Flatus, Fecal Incontinence, Heartburn, Hematemesis, Hematochezia, Loose Stools, Melena, Nausea, Odynophagia, Temesmus, Vomiting, Other - Genitourinary Genitourinary: absent: As Per HPI, Change in Urinary Stream, Difficulty Urinating, Dysuria, Flank Pain, Hematuria, Pyuria, Nocturia, Urinary Incontinence, Urinary Frequency, Urinary Hesitance, Urinary Urgency, Voiding Freq/Small Amts, Freq UTI, Hx Renal/Bladder Calculi, Hx /Renal Surgery, Bladder Distension, Other - Reproductive: Female Reproductive:Female: absent: As Per HPI, Amenorrhea, Amenorrhea/ Control, Currently Menstual, Cycle <21 Days, Cycle >35 Days, Cycle Variable, Menses 1-7 Days, Menses >/= 8 Days, Menses Variable, Cycle > 4 Weeks Between, No Menses for 6 Months, Heavy Menses, Light Menses, Normal Menses, Spotting Between Cycles , S/P Hysterectomy, Menopausal, Post Menopausal, Premenarche, Abnormal Vaginal Bleeding, Dysmenorrhea, Dyspareunia, Genital Lesions, Genital Pruritis, Pelvic Pain, Prolapse Symptoms, Sexual Dysfunction, Vaginal Discharge, Vaginal Dryness , Vaginal Odor, Vaginal Pruritis, Other - Menstruation Menstruation: absent: As Per HPI, Amenorrhea, Amenorrhea/ Control, Currently Menstual, Cycle <21 Days, Cycle >35 Days, Cycle Variable, Menses 1-7 Days, Menses >/= 8 Days, Menses Variable, Cycle > 4 Weeks Between, No Menses for 6 Months, Heavy Menses, Light Menses, Normal Menses, Spotting Between Cycles , S/P Hysterectomy, Menopausal, Post Menopausal, Premenarche, Abnormal Vaginal Bleeding, Dysmenorrhea, Other - Musculoskeletal Musculoskeletal: As Per HPI - Integumentary Integumentary: As Per HPI - Neurological Neurological: absent: As Per HPI, Abnormal Gait, Abnormal Hearing, Abnormal Movements, Abnormal Speech, Behavioral Changes, Burning Sensations, Confusion, Convulsions, Disequilibrium, Dizziness, Numbness, Focal Weakness, Frequent Falls , Headaches, Lack of Coordination, Loss of Vision, Memory Loss, Paresthesias, Radicular Pain, Restless Legs, Sensory Deficit, Syncope, Tingling, Tremor, Vertigo, Weakness, Other Visual Disturbances, Other - Psychiatric Psychiatric: absent: As Per HPI, Abnormal Sleep Pattern, Anhedonia, Anxiety, Auditory Hallucinations, Behavioral Changes, Change in Appetite, Change in Libido, Confusion, Depression, Difficulty Concentrating, Hallucinations, Homicidal Ideation, Hopelessness, Irritability, Memory Loss, Mood Swings, Panic Attacks, Paranoia, Suicidal Ideation, Visual Hallucinations, Tactile Hallucinations, Other - Endocrine Endocrine: absent: As Per HPI, Change in Body Appearance, Change in Libido, Cold Intolorance, Deepening of Voice, Excessive Sweating, Fatigue, Flushing, Heat Intolorance, Increase in Ring/Shoe/Hat Size, Palpitations, Polydipsia, Polyphagia, Polyuria, Other Past Patient History - Infectious Disease Hx of Infectious Diseases: None - Past Medical History & Family History Past Medical History?: Yes - Past Social History Smoking Status: Never Smoked - CARDIAC Hx Hypercholesterolemia: Yes Hx Hypertension: Yes - PULMONARY Hx Respiratory Disorders: No - NEUROLOGICAL Hx Neurological Disorder: No - HEENT Hx HEENT Problems: Yes Hx Cataracts: Yes - RENAL Hx Chronic Kidney Disease: No - ENDOCRINE/METABOLIC Hx Endocrine Disorders: No - HEMATOLOGICAL/ONCOLOGICAL Hx Human Immunodeficiency Virus (HIV): No - INTEGUMENTARY Hx Dermatological Problems: Yes Hx Cellulitis: Yes (jaw) - MUSCULOSKELETAL/RHEUMATOLOGICAL Hx Arthritis: Yes Hx Falls: No - GASTROINTESTINAL Hx Crohn's Disease: No Hx Diverticulitis: Yes (Diverticulosis) Hx Gall Bladder Disease: No Hx Gastritis: Yes Hx Pancreatitis: No - GENITOURINARY/GYNECOLOGICAL Hx Genitourinary Disorders: No Hx Urinary Tract Infection: Yes (as above) - PSYCHIATRIC Hx Substance Use: No - SURGICAL HISTORY Hx Tonsillectomy: Yes (1933) - ANESTHESIA Hx Anesthesia: Yes Hx Anesthesia Reactions: No Hx Malignant Hyperthermia: No Meds Allergies/Adverse Reactions: Allergies Allergy/AdvReac Type Severity Reaction Status Date / Time No Known Allergies Allergy Verified 06/14/16 23:40 - Medications Medications: Current Medications Metronidazole (Flagyl) 100 mls @ 100 mls/hr IVPB Q8H [facility] Last Admin: 06/16/16 09:30 Dose: 100 mls/hr Cefepime HCl (Maxipime Iv 1 Gm Premix) 50 mls @ 100 mls/hr IVPB Q24H [facility] Last Admin: 06/16/16 13:30 Dose: 100 mls/hr Sodium Bicarbonate 150 meq/ (Dextrose) 1,000 mls @ 100 mls/hr IV .Q10H [facility] Last Admin: 06/16/16 15:29 Dose: 100 mls/hr Pantoprazole Sodium (Protonix Ec Tab) 40 mg PO DAILY [facility] Last Admin: 06/16/16 09:15 Dose: 40 mg Physical Exam - Constitutional Appears: Non-toxic, Confused, Chronically Ill - Head Exam Head Exam: ATRAUMATIC, NORMAL INSPECTION, NORMOCEPHALIC - Eye Exam Eye Exam: PERRL. absent: Scleral icterus - ENT Exam ENT Exam: Mucous Membranes Dry, Normal External Ear Exam - Neck Exam Neck exam: Negative for: Lymphadenopathy, Thyromegaly - Respiratory Exam Respiratory Exam: Decreased Breath Sounds, Clear to Auscultation Bilateral - Cardiovascular Exam Cardiovascular Exam: REGULAR RHYTHM, +S1, +S2 - GI/Abdominal Exam GI & Abdominal Exam: Diminished Bowel Sounds, Soft. absent: Organomegaly, Pulsatile Mass, Rebound, Tenderness - Rectal Exam Rectal Exam: Deferred - Exam Exam: NORMAL INSPECTION - Extremities Exam Extremities exam: Positive for: pedal edema, tenderness. Negative for: calf tenderness, pedal pulses present - Back Exam Back exam: absent: CVA tenderness (L), CVA tenderness (R), paraspinal tenderness - Neurological Exam Neurological exam: Alert, CN II-XII Intact, Oriented x3, Reflexes Normal - Psychiatric Exam Psychiatric exam: Normal Mood - Skin Skin Exam: Dry, Rash Results - Vital Signs Recent Vital Signs: Last Vital Signs Temp 98.5 F 06/16/16 08:00 Pulse 112 H 06/16/16 09:14 Resp 32 H 06/16/16 09:14 BP 146/63 06/16/16 09:14 Pulse Ox 96 06/16/16 09:14 - Labs Result Diagrams: 06/16/16 04:25 06/16/16 04:25 Labs: Laboratory Results - last 24 hr 06/15/16 06/15/16 06/16/16 14:15 20:41 04:25 WBC 17.9 H RBC 2.74 L Hgb 8.9 L Hct 25.0 L MCV 91.0 D MCH 32.6 H MCHC 35.9 RDW 14.9 H Plt Count 186 MPV 8.6 Neut % (Auto) 81.1 H Lymph % (Auto) 17.4 L [place] % (Auto) 1.3 Eos % (Auto) 0.1 Baso % (Auto) 0.1 Neut # 14.5 H Lymph # 3.1 [place] # 0.2 Eos # 0.0 Baso # 0.0 Differential Comment Sodium 128 L 125 L 128 L Potassium 4.6 4.5 4.4 Chloride 94 L 91 L 90 L Carbon Dioxide 16 L 17 L 20 L Anion Gap 23 H 22 H 22 H BUN 164 H* 167 H* > 120 H* D Creatinine 4.3 H 3.9 H 4.1 H Est GFR ( Amer) 12 13 12 Est GFR (Non-Af Amer) 10 11 10 Random Glucose 119 H 113 H 113 H Calcium 6.4 L 6.1 L 5.9 L* Phosphorus 8.9 H Magnesium 1.5 L Total Bilirubin 0.5 AST 27 ALT 39 Alkaline Phosphatase 53 Total Protein 3.8 L Albumin 1.8 L Globulin 2.0 L Albumin/Globulin Ratio 0.9 L Assessment & Plan (1) Acidosis Status: Acute (2) Acute renal failure Status: Acute (3) Arterial, arteriole and capillary disease Status: Acute (4) CHF (congestive heart failure) Status: Acute (5) Hyponatremia Status: Acute (6) Abdominal pain Status: Acute (7) Acute renal insufficiency Status: Acute (8) Breath shortness Status: Acute (9) Cellulitis and abscess of leg Status: Acute - Assessment and Plan (Free Text) Assessment: SEVERE BILAT CELLULITIS CHF HTN OA OBESITY PVD UTI SEVERE CKD IV Plan: CONT IV RX PER DR DILLARD
--- NOTE | 2016-06-16 15:57 | CP.PCM.CON ---
History of Present Illness - History of Present Illness History of Present Illness: 86 y/o female presents with advanced renal failure, LE cellulitis, anasarca. Creat >4, 2+ proteinuria. CHF on CXR PMH: HTN DIVERTICOLOSIS PUD DL CONSULT DICTATED WILL NEED DIALYSIS FAMILY AGREES WILL MAKE ARRANGEMENTS IN AM Past Patient History - Infectious Disease Hx of Infectious Diseases: None - Past Medical History & Family History Past Medical History?: Yes - Past Social History Smoking Status: Never Smoked - CARDIAC Hx Hypercholesterolemia: Yes Hx Hypertension: Yes - PULMONARY Hx Respiratory Disorders: No - NEUROLOGICAL Hx Neurological Disorder: No - HEENT Hx HEENT Problems: Yes Hx Cataracts: Yes - RENAL Hx Chronic Kidney Disease: No - ENDOCRINE/METABOLIC Hx Endocrine Disorders: No - HEMATOLOGICAL/ONCOLOGICAL Hx Human Immunodeficiency Virus (HIV): No - INTEGUMENTARY Hx Dermatological Problems: Yes Hx Cellulitis: Yes (jaw) - MUSCULOSKELETAL/RHEUMATOLOGICAL Hx Arthritis: Yes Hx Falls: No - GASTROINTESTINAL Hx Crohn's Disease: No Hx Diverticulitis: Yes (Diverticulosis) Hx Gall Bladder Disease: No Hx Gastritis: Yes Hx Pancreatitis: No - GENITOURINARY/GYNECOLOGICAL Hx Genitourinary Disorders: No Hx Urinary Tract Infection: Yes (as above) - PSYCHIATRIC Hx Substance Use: No - SURGICAL HISTORY Hx Tonsillectomy: Yes (1933) - ANESTHESIA Hx Anesthesia: Yes Hx Anesthesia Reactions: No Hx Malignant Hyperthermia: No Meds Allergies/Adverse Reactions: Allergies Allergy/AdvReac Type Severity Reaction Status Date / Time No Known Allergies Allergy Verified 06/14/16 23:40 - Medications Medications: Current Medications Metronidazole (Flagyl) 100 mls @ 100 mls/hr IVPB Q8H [facility] Last Admin: 06/16/16 09:30 Dose: 100 mls/hr Cefepime HCl (Maxipime Iv 1 Gm Premix) 50 mls @ 100 mls/hr IVPB Q24H [facility] Last Admin: 06/16/16 13:30 Dose: 100 mls/hr Sodium Bicarbonate 150 meq/ (Dextrose) 1,000 mls @ 100 mls/hr IV .Q10H [facility] Last Admin: 06/16/16 15:29 Dose: 100 mls/hr Pantoprazole Sodium (Protonix Ec Tab) 40 mg PO DAILY [facility] Last Admin: 06/16/16 09:15 Dose: 40 mg Results - Vital Signs Recent Vital Signs: Last Vital Signs Temp 98.5 F 06/16/16 08:00 Pulse 112 H 06/16/16 09:14 Resp 32 H 06/16/16 09:14 BP 146/63 06/16/16 09:14 Pulse Ox 96 06/16/16 09:14 - Labs Result Diagrams: 06/16/16 04:25 06/16/16 04:25 Labs: Laboratory Results - last 24 hr 06/15/16 06/15/16 06/16/16 14:15 20:41 04:25 WBC 17.9 H RBC 2.74 L Hgb 8.9 L Hct 25.0 L MCV 91.0 D MCH 32.6 H MCHC 35.9 RDW 14.9 H Plt Count 186 MPV 8.6 Neut % (Auto) 81.1 H Lymph % (Auto) 17.4 L [place] % (Auto) 1.3 Eos % (Auto) 0.1 Baso % (Auto) 0.1 Neut # 14.5 H Lymph # 3.1 [place] # 0.2 Eos # 0.0 Baso # 0.0 Differential Comment Sodium 128 L 125 L 128 L Potassium 4.6 4.5 4.4 Chloride 94 L 91 L 90 L Carbon Dioxide 16 L 17 L 20 L Anion Gap 23 H 22 H 22 H BUN 164 H* 167 H* > 120 H* D Creatinine 4.3 H 3.9 H 4.1 H Est GFR ( Amer) 12 13 12 Est GFR (Non-Af Amer) 10 11 10 Random Glucose 119 H 113 H 113 H Calcium 6.4 L 6.1 L 5.9 L* Phosphorus 8.9 H Magnesium 1.5 L Total Bilirubin 0.5 AST 27 ALT 39 Alkaline Phosphatase 53 Total Protein 3.8 L Albumin 1.8 L Globulin 2.0 L Albumin/Globulin Ratio 0.9 L
--- NOTE | 2016-06-16 17:07 | CP.PCM.PN ---
Subjective - Date & Time of Evaluation Date of Evaluation: 06/16/16 Objective - Vital Signs/Intake and Output Vital Signs (last 24 hours): Temp Pulse Resp BP Pulse Ox 98.5 F 112 H 32 H 146/63 96 06/16/16 08:00 06/16/16 09:14 06/16/16 09:14 06/16/16 09:14 06/16/16 09:14 Intake and Output: 06/16/16 06/16/16 06:59 18:59 Intake Total 1440 Output Total 110 Balance 1330 - Medications Medications: Current Medications Calcium Acetate (Phoslo) 667 mg PO [facility] Metronidazole (Flagyl) 100 mls @ 100 mls/hr IVPB Q8H [facility] Last Admin: 06/16/16 09:30 Dose: 100 mls/hr Cefepime HCl (Maxipime Iv 1 Gm Premix) 50 mls @ 100 mls/hr IVPB Q24H [facility] Last Admin: 06/16/16 13:30 Dose: 100 mls/hr Sodium Bicarbonate 150 meq/ (Dextrose) 1,000 mls @ 100 mls/hr IV .Q10H [facility] Last Admin: 06/16/16 15:29 Dose: 100 mls/hr Pantoprazole Sodium (Protonix Ec Tab) 40 mg PO DAILY [facility] Last Admin: 06/16/16 09:15 Dose: 40 mg - Labs Labs: 06/16/16 04:25 06/16/16 04:25 PT 13.0 SECONDS (9.7-12.2) H 06/14/16 23:53 INR 1.2 06/14/16 23:53 APTT 25 SECONDS (21-34) 06/15/16 06:50
--- NOTE | 2016-06-16 20:26 | CARD ---
APPROVED REPORT EKG Measurement Heart [id number] <Conclusion> Sinus tachycardia Incomplete right bundle branch block Borderline ECG
--- NOTE | 2016-06-16 20:56 | CON ---
DATE: 06/16/2016 HISTORY OF PRESENT ILLNESS: The patient is an 86-year-old white female who presented on 06/14 with lo wer extremity pain and swelling and she was diagnosed as having lower extremity cellulitis and is eldon ng treated for this with antibiotics. She was found to have an elevated creatinine of over 4 and a r enal consult was requested. PAST MEDICAL HISTORY: That of hypertension, diverticulosis, dyslipidemia, peptic ulcer disease. PAST SURGICAL HISTORY: The only surgical history known is that of a tonsillectomy. MEDICATIONS: Previously included Diuril and Protonix. She had been put on antibiotics as an outpati ent as well. SOCIAL HISTORY: Negative for smoking, alcohol abuse or illicit drug use. FAMILY HISTORY: Negative for chronic kidney disease. REVIEW OF SYSTEMS: The patient has increasing swelling over the last several months to a year and mo stly lower extremity swelling. She had been ____ dyspnea on exertion. She had no fevers or chills. She has had difficulty urinating at times, but no painful urination and she has been treated for uri nary tract infections in the past. She has no chest pain. She has no visual disturbances or hearing deficits. She is very lethargic now and further review of systems could not be obtained. PHYSICAL EXAMINATION: GENERAL: She is a well-developed white female. VITAL SIGNS: Blood pressure at bedside was 146/63, pulse is 112, pulse ox is 96% on room air. HEENT: She is anicteric. Mouth was clear. NECK: No JVD. LUNGS: Christian showed increased rales and rhonchi scattered throughout correction up. HEART: Sinus tachycardia. ABDOMEN: Soft and benign. No mass or organomegaly. EXTREMITIES: She had 3-4+ anasarca in the lower extremities and presacral area. The chest x-ray showed [id number] CHF. Renal ultrasound showed normal sized kidneys but they w ere very echogenic. No hydronephrosis. LABORATORY DATA: The blood work has been uniform. Hemoglobin now is 8.9, white count is 17.9. The chemistries initially showed a creatinine of 4.3, BUN of 160. Now, the BUN is greater than 120 and c reatinine 4.1. Calcium is 5.9, phosphorus is 8.9. The potassium is 4.4, sodium 128. Urine has 2+ p rotein, 3+ blood. She has not been given heparin before, maybe because of bloody urine in the Jeffries catheter at the present time. 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 Because of the chronicity of the d isease and the severe fluid retention and the cellulitis of the lower extremity, I believe the patien t would be best served by hemodialysis and the fluid removal. Family agrees to this and we will star t to initiate dialysis tomorrow. We will ____ make arrangements for this. We will follow up. Nickolas Almanzar MD cc: [id number] TT: 06/16/2016 20:56:24 Confirmation # [id number] Dictation # [id number]
[2016-06-17] MEDS: metroNIDAZOLE IV 500 mg/100 ml 100 ML IVPB SCH ×3 (02:00→17:11)
[2016-06-17] MEDS: Sodium Bicarbonate 8.4% 150 MEQ in Dextrose 5% In Water 850 ML IV SCH ×2 (04:00→17:13)
--- NOTE | 2016-06-17 06:28 | CP.PCM.CON ---
History of Present Illness - History of Present Illness History of Present Illness: 86 F w/ PMHx of HTN, diverticulosis, PUD,OA, PVD, presents to the hospital from [place] with b/l lower extremity cellulitis. Patient seen and examined at bedside, speaking in full sentences, aware she is in hospital however unable to name the hospital or the town she is in. According to prior medical records patient had been seen by machine clothing worker who had prescribed pt Abx for cellulitis, after seeing no improvement PMD recommended she go to ED. At time of examination patient denied chill/fever, chest pain/SOB, n/v. Pt in need of dialysis. Vascular surgery consulted for permcath placement. PMH: HTN, HLD, UTI, diverticulitis, CKD Allergies: NKDA Review of Systems - Review of Systems Review of Systems: 12 pt ROS carried out; unremarkable; except as stated in HPI Past Patient History - Infectious Disease Hx of Infectious Diseases: None - Past Medical History & Family History Past Medical History?: Yes - Past Social History Smoking Status: Never Smoked - CARDIAC Hx Hypercholesterolemia: Yes Hx Hypertension: Yes - PULMONARY Hx Respiratory Disorders: No - NEUROLOGICAL Hx Neurological Disorder: No - HEENT Hx HEENT Problems: Yes Hx Cataracts: Yes - RENAL Hx Chronic Kidney Disease: No - ENDOCRINE/METABOLIC Hx Endocrine Disorders: No - HEMATOLOGICAL/ONCOLOGICAL Hx Human Immunodeficiency Virus (HIV): No - INTEGUMENTARY Hx Dermatological Problems: Yes Hx Cellulitis: Yes (jaw) - MUSCULOSKELETAL/RHEUMATOLOGICAL Hx Arthritis: Yes Hx Falls: No - GASTROINTESTINAL Hx Crohn's Disease: No Hx Diverticulitis: Yes (Diverticulosis) Hx Gall Bladder Disease: No Hx Gastritis: Yes Hx Pancreatitis: No - GENITOURINARY/GYNECOLOGICAL Hx Genitourinary Disorders: No Hx Urinary Tract Infection: Yes (as above) - PSYCHIATRIC Hx Substance Use: No - SURGICAL HISTORY Hx Tonsillectomy: Yes (1933) - ANESTHESIA Hx Anesthesia: Yes Hx Anesthesia Reactions: No Hx Malignant Hyperthermia: No Meds Allergies/Adverse Reactions: Allergies Allergy/AdvReac Type Severity Reaction Status Date / Time No Known Allergies Allergy Verified 06/14/16 23:40 - Medications Medications: Current Medications Calcium Acetate (Phoslo) 667 mg PO TIDCC [facility] Last Admin: 06/16/16 17:14 Dose: 667 mg Metronidazole (Flagyl) 100 mls @ 100 mls/hr IVPB Q8H [facility] Last Admin: 06/17/16 02:00 Dose: 100 mls/hr Cefepime HCl (Maxipime Iv 1 Gm Premix) 50 mls @ 100 mls/hr IVPB Q24H [facility] Last Admin: 06/16/16 13:30 Dose: 100 mls/hr Sodium Bicarbonate 150 meq/ (Dextrose) 1,000 mls @ 100 mls/hr IV .Q10H [facility] Last Admin: 06/16/16 15:29 Dose: 100 mls/hr Pantoprazole Sodium (Protonix Ec Tab) 40 mg PO DAILY [facility] Last Admin: 06/16/16 09:15 Dose: 40 mg Physical Exam - Constitutional Appears: No Acute Distress - Head Exam Head Exam: NORMOCEPHALIC - Eye Exam Eye Exam: Normal appearance - ENT Exam ENT Exam: Mucous Membranes Moist - Respiratory Exam Respiratory Exam: NORMAL BREATHING PATTERN - Cardiovascular Exam Cardiovascular Exam: Tachycardia, +S1, +S2 - GI/Abdominal Exam GI & Abdominal Exam: Soft. absent: Distended, Firm, Guarding, Rigid, Tenderness - Extremities Exam Extremities exam: Negative for: calf tenderness Additional comments: b/l LE cellulitis - Neurological Exam Neurological exam: Alert Additional comments: Alert Awake Not oriented to place - Psychiatric Exam Psychiatric exam: Normal Mood - Skin Skin Exam: Erythema, Warm Results - Vital Signs Recent Vital Signs: Last Vital Signs Temp 98 F 06/17/16 04:00 Pulse 113 H 06/17/16 04:15 Resp 20 06/17/16 04:15 BP 119/68 06/17/16 04:15 Pulse Ox 95 06/17/16 04:15 - Labs Result Diagrams: 06/16/16 04:25 06/16/16 04:25 Labs: Laboratory Results - last 24 hr 06/16/16 06/16/16 04:25 13:14 Differential Comment C. difficile Ag & Toxin Negative Assessment & Plan - Assessment and Plan (Free Text) Assessment: 86F w/ renal failure -Keep patient NPO -Will schedule for permcath placement -F/u nephrology recs -Further recs per Dr. Martinez
[2016-06-17 06:36] LABS: INR 1.5
[2016-06-17 06:49] LABS: CHLORIDE 86 mmol/L (98-107); POTASSIUM 4.1 mmol/L (3.6-5.2); SODIUM 128 mmol/L (132-148); VANCOMYCIN RANDOM 9.78 ug/mL
[2016-06-17 06:51] LABS: AST/SGOT 26 U/L (14-36); BILIRUBIN,TOTAL 0.4 mg/dL (0.2-1.3); CARBON DIOXIDE 24 mmol/L (22-30); GFR AFRICAN-AMERICAN 10
[2016-06-17 06:52] LABS: ALKALINE PHOSPHATASE 52 U/L (38-126); ALT/SGPT 38 U/L (9-52); GLUCOSE,RANDOM 100 mg/dL (65-105); TOTAL PROTEIN 3.4 g/dL (6.3-8.3)
[2016-06-17 06:55] LABS: ALB/GLOB RATIO 0.9 (1.0-2.1)
[2016-06-17 07:15] LABS: BLOOD UREA NITROGEN 168 mg/dL (7-17); CALCIUM 5.6 mg/dl (8.6-10.4)
[2016-06-17 07:30] LABS: HEMATOCRIT 25.1 % (34.0-47.0); MEAN CELL VOLUME 92.6 fL (81.0-99.0); MEAN CORPUSCULAR HEMOGLOBIN 32.3 pg (27.0-31.0); MEAN CORPUSCULAR HGB CONC 34.9 g/dL (33.0-37.0); MEAN PLATELET VOLUME 9.3 fL (7.2-11.7); RED CELL DISTRIBUTION WIDTH 14.5 % (11.5-14.5); WHITE BLOOD COUNT 17.8 K/uL (4.8-10.8)
[2016-06-17] MEDS ORDERED: Lidocaine 1% Inj (20ml) ONE (08:45)
--- NOTE | 2016-06-17 08:46 | CP.CCUPN ---
CCU Subjective - Physician Review Subjective (Free Text): 06/17/16 18:05 Patient seen and examined in no acute distress. Patient denies shortness of breath however wheezing bilaterally. Patient is awake and responsive denying pain at this time. Patient admits to some weakness. She denies subjective fevers or chills, nausea, vomiting, diarrhea, constipation, headaches, chest pain, urinary changes, paresthesias at this time. Critical Care Time Spent (in minutes): 35 CCU Objective - Vital Signs / Intake & Output Vital Signs (Last 4 hours): Vital Signs Pulse Resp BP Pulse Ox 06/17/16 07:15 108 H 20 140/56 L 99 06/17/16 07:00 103 H 20 100 06/17/16 06:15 111 H 18 135/60 98 06/17/16 06:00 112 H 22 98 06/17/16 05:14 110 H 22 116/52 L 96 06/17/16 05:00 111 H 17 98 Intake and Output (Last 8hrs): Intake & Output 06/16/16 06/17/16 06/17/16 22:59 06:59 14:59 Intake Total 960 800 100 Output Total 50 70 15 Balance 910 730 85 Weight 189 lb Intake: Intake, IV Amount 900 800 100 Left Antecubital 600 Right Hand 100 Left Hand 200 800 100 Oral 60 Output: Urine 50 70 15 Urethral (Hammond) 50 70 15 - Physical Exam Physical Exam Limitations: Negative for: Altered Mental Status Head: Positive for: Atraumatic, Normocephalic Pupils: Positive for: PERRL Conjunctiva: Positive for: Normal Mouth: Positive for: Moist Mucous Membranes Nose (External): Positive for: Atraumatic Neck: Positive for: Normal Range of Motion Respiratory/Chest: Positive for: Clear to Auscultation, Wheezes. Negative for: Respiratory Distress Cardiovascular: Positive for: Murmurs, Normal S1, S2 Abdomen: Positive for: Normal Bowel Sounds. Negative for: Tenderness, Distention Back: Negative for: CVA Tenderness Upper Extremity: Positive for: Normal Inspection Lower Extremity: Positive for: Edema, Erythema, Capillary Refill < 2 s Neurological: Positive for: Speech Normal, Motor Func Grossly Intact Skin: Positive for: Warm, Dry, Rashes (B\L LE) Psychiatric: Positive for: Alert, Oriented x 3, Normal Insight - Medications Active Medications: Active Medications Generic Name Dose Route Start Last Admin Trade Name Freq PRN Reason Stop Dose Admin Calcium Acetate 667 mg 06/16/16 17:00 06/16/16 17:14 Phoslo PO 667 mg TIDCC [facility] Administration Metronidazole 100 mls @ 100 mls/hr 06/15/16 02:00 06/17/16 02:00 Flagyl IVPB 100 mls/hr Q8H [facility] Administration Cefepime HCl 50 mls @ 100 mls/hr 06/16/16 13:30 06/16/16 13:30 Maxipime Iv 1 Gm Premix IVPB 100 mls/hr Q24H [facility] Administration Sodium Bicarbonate 150 meq/ 1,000 mls @ 100 mls/hr 06/16/16 10:27 06/17/16 04: 00 Dextrose IV 100 mls/hr .Q10H [facility] Administration Pantoprazole Sodium 40 mg 06/15/16 10:00 06/16/16 09:15 Protonix Ec Tab PO 40 mg DAILY [facility] Administration - Patient Studies Lab Studies: Microbiology Studies 06/15/16 Unknown MRSA Culture (Admit) - Final Naris MRSA NOT DETECTED Lab Studies 06/17/16 06/16/16 06/16/16 Range/Units 06:20 13:14 04:25 WBC 17.8 H (4.8-10.8) K/uL RBC 2.71 L (3.80-5.20) Mil/uL Hgb 8.8 L (11.0-16.0) g/dL Hct 25.1 L (34.0-47.0) % MCV 92.6 (81.0-99.0) fL MCH 32.3 H (27.0-31.0) pg MCHC 34.9 (33.0-37.0) g/dL RDW 14.5 (11.5-14.5) % Plt Count 191 (130-400) K/uL MPV 9.3 (7.2-11.7) fL Differential Comment PT 17.3 H (9.7-12.2) SECONDS INR 1.5 APTT 28 (21-34) SECONDS Sodium 128 L (132-148) mmol/L Potassium 4.1 (3.6-5.2) mmol/L Chloride 86 L (98-107) mmol/L Carbon Dioxide 24 (22-30) mmol/L Anion Gap 22 H (10-20) BUN 168 H* D (7-17) mg/dL Creatinine 4.8 H (0.7-1.2) MG/DL Est GFR ( Amer) 10 Est GFR (Non-Af Amer) 9 Random Glucose 100 (65-105) mg/dL Calcium 5.6 L* (8.6-10.4) mg/dl % Saturation 16 L (20-55) Ferritin 803.0 ng/mL Total Bilirubin 0.4 (0.2-1.3) mg/dL AST 26 (14-36) U/L ALT 38 (9-52) U/L Alkaline Phosphatase 52 (38-126) U/L Total Protein 3.4 L (6.3-8.3) g/dL Albumin 1.7 L (3.5-5.0) g/dL Globulin 1.8 L (2.2-3.9) gm/dL Albumin/Globulin Ratio 0.9 L (1.0-2.1) Random Vancomycin 9.78 ug/mL C. difficile Ag & Toxin Negative (NEGATIVE) Laboratory Results - last 24 hr 06/16/16 06/16/16 06/17/16 04:25 13:14 06:20 WBC 17.8 H RBC 2.71 L Hgb 8.8 L Hct 25.1 L MCV 92.6 MCH 32.3 H MCHC 34.9 RDW 14.5 Plt Count 191 MPV 9.3 Differential Comment PT 17.3 H INR 1.5 APTT 28 Sodium 128 L Potassium 4.1 Chloride 86 L Carbon Dioxide 24 Anion Gap 22 H BUN 168 H* D Creatinine 4.8 H Est GFR ( Amer) 10 Est GFR (Non-Af Amer) 9 Random Glucose 100 Calcium 5.6 L* % Saturation 16 L Ferritin 803.0 Total Bilirubin 0.4 AST 26 ALT 38 Alkaline Phosphatase 52 Total Protein 3.4 L Albumin 1.7 L Globulin 1.8 L Albumin/Globulin Ratio 0.9 L Random Vancomycin 9.78 C. difficile Ag & Toxin Negative Review of Systems - Review of Systems Review of Systems: As noted in subjective portion Critical Care Progress Note - Prophylaxis GI Prophylaxis GI: PPI - Nutrition Nutrition: Nutrition Category Date Time Status NPO Diet [DIET] Diets 06/17/16 Breakfast Active Assessment/Plan - Assessment and Plan (Free Text) Assessment: 86-year-old female with recent hospitalization for UTI presents with cellulitis of LE with associated pain and pruritus. She wzs prescribed antibiotics by slot machine key person with no improvement and thus asked to come to the hospital for further evaluation. Patient presented with sepsis , worsenign kidney function, hyponatremic and CHF. Plan: Neuro: AAOx3 Cardio: Normotensive at this time. Cont to monitor Cardiomegaly noted on XRAY Pulm: Chest XRAY- moderate pulm venous congestion; increasing central vascular congestion; left basilar atelectasis/ infiltrates and small effusion GI: Protonix 40 mg PO daily Hematology: Heparin discontinued at this time due to drop in platelets- thrombocytopenia. Hgb/hct: 8.8/25.1 Endocrine: Maintain euglycemia Renal: Worsening renal failure To arrange for dialysis today due to worsening pre-renal azotemia Phoslo started and increased Monitor Ca Renal U/S: increased echogenicity of renal cortex suggestive of medical renal disease- no calculi or hydronephrosis noted- hammond visualized ID: Broad spectrum abx: Flagyl Q8H, Cefepime dialy. Monitor Vanco level 9.78 F/U cultures Elevate LE Wound Care eval : Hammond in place MSK: Duplex U/S- no apparent evidence of DVT bilaterally; of note right femoral vein not well imaged distally due to swelling Prophylaxis: Heparin discontinued at this time due to drop in platelets. Cannot rule out drug induced thrombocytopenia. Protonix 40 mg PO daily urn 2 QH to prevent bed sores
[2016-06-17] MEDS ORDERED: HEPARIN-NS 5,000 UNITS/500 ML 500 ML IV ONE (09:07)
[2016-06-17] MEDS ORDERED: Sodium Chloride 0.9% 1,000 ML IV ONE (09:15)
--- NOTE | 2016-06-17 10:04 | PCM.SURG1 ---
Surgeon's Initial Post Op Note - Surgeon's Notes Surgeon: Dr. Martinez Radio Intelligence Operator: Dr. Murphy PGY2 Type of Anesthesia: IV Sedation, Local Anesthesia Administered By: nickolas Pre-Operative Diagnosis: renal failure Operative Findings: same Post-Operative Diagnosis: same Operation Performed: Insertion of Permacath, Right Internal Jugular vein Specimen/Specimens Removed: none Estimated Blood Loss: EBL {In ML}: 5 Blood Products Given: N/A Drains Used: No Drains Post-Op Condition: Good Date of Surgery/Procedure: 06/17/16 Time of Surgery/Procedure: 10:04
--- NOTE | 2016-06-17 10:17 | OP ---
PROCEDURE DATE: 06/17/2016 PREOPERATIVE DIAGNOSIS: Renal failure. POSTOPERATIVE DIAGNOSIS: Renal failure. PROCEDURE CARRIED OUT: Placement of Perm-A-Cath, right jugular vein with C-arm fluoroscopy, ultrasou nd-guided puncture, and micropuncture technique. SURGEON: Phani Martinez MD. SEPARATOR INSERTER: Dr. Murphy, resident. ANESTHESIOLOGIST: Mr. ____, local with sedation. Elderly woman with renal insufficiency who requires dialysis. OPERATIVE FINDINGS: Catheter was inserted uneventfully via the jugular vein. PROCEDURE: The patient was given local anesthesia. Using ultrasound guidance, the right jugular vei n was punctured using micropuncture technique. Under fluoroscopic control, the guidewire was advance d centrally. This was, subsequently, exchanged for a 0.035 wire, and then the larger sheath dilator was deployed over this. The catheter was then positioned with the appropriate tip at the appropriate level, tunneled and brought out on the chest wall where sutured to the skin. Blood loss of the proc edure was approximately 10 mL. The catheter was secured and had excellent return. A chest x-ray is pending. Ultrasound image ____ was 15 mm in diameter with normal compressibility and no evidence of intralumin al thrombosis. Phani Martinez Jr., MD cc: 56 TT: 06/17/2016 10:16:55 jn
--- NOTE | 2016-06-17 10:19 | CP.PCM.PN ---
Subjective - Date & Time of Evaluation Date of Evaluation: 06/17/16 Time of Evaluation: 10:16 - Subjective Subjective: Discussed with family about severe fluid accumulation and worsening renal failure. To arrange for first dialysis today. Pre-renal azotemia worse Ca still rather low- phoslo started- will incraese Will need arrangements for outpt HD Objective - Vital Signs/Intake and Output Vital Signs (last 24 hours): Temp Pulse Resp BP Pulse Ox 98 F 108 H 20 140/56 L 99 06/17/16 04:00 06/17/16 07:15 06/17/16 07:15 06/17/16 07:15 06/17/16 07:15 Intake and Output: 06/17/16 06/17/16 06:59 18:59 Intake Total 1200 100 Output Total 90 15 Balance 1110 85 - Medications Medications: Current Medications Calcium Acetate (Phoslo) 667 mg PO TIDCC [facility] Last Admin: 06/16/16 17:14 Dose: 667 mg Metronidazole (Flagyl) 100 mls @ 100 mls/hr IVPB Q8H [facility] Last Admin: 06/17/16 02:00 Dose: 100 mls/hr Cefepime HCl (Maxipime Iv 1 Gm Premix) 50 mls @ 100 mls/hr IVPB Q24H [facility] Last Admin: 06/16/16 13:30 Dose: 100 mls/hr Sodium Bicarbonate 150 meq/ (Dextrose) 1,000 mls @ 100 mls/hr IV .Q10H [facility] Last Admin: 06/17/16 04:00 Dose: 100 mls/hr Pantoprazole Sodium (Protonix Ec Tab) 40 mg PO DAILY [facility] Last Admin: 06/16/16 09:15 Dose: 40 mg - Labs Labs: 06/17/16 06:20 06/17/16 06:20 PT 17.3 SECONDS (9.7-12.2) H 06/17/16 06:20 INR 1.5 06/17/16 06:20 APTT 28 SECONDS (21-34) 06/17/16 06:20 - Constitutional Appears: Confused, Chronically Ill - Head Exam Head Exam: ATRAUMATIC, NORMAL INSPECTION - Eye Exam Eye Exam: EOMI, Normal appearance - Neck Exam Neck Exam: Normal Inspection, Tenderness - Respiratory Exam Respiratory Exam: Decreased Breath Sounds, Respiratory Distress - Cardiovascular Exam Cardiovascular Exam: REGULAR RHYTHM, +S1, +S2 - GI/Abdominal Exam GI & Abdominal Exam: Soft, Tenderness - Extremities Exam Extremities Exam: Pedal Edema, Tenderness - Neurological Exam Neurological Exam: Awake, CN II-XII Intact Assessment and Plan (1) CHF (congestive heart failure) Status: Acute (2) Cellulitis and abscess of leg Status: Acute (3) Hyponatremia Status: Acute (4) CKD stage 5 secondary to hypertension Status: Acute - Assessment and Plan (Free Text) Plan: Dialysis today Increase phoslo Monitor BP
[2016-06-17] MEDS: Pantoprazole 40 mg EC Tab PO SCH (10:33)
--- NOTE | 2016-06-17 11:29 | RAD ---
HISTORY: s/p permacath COMPARISON: Chest x-ray performed 06/14/16 TECHNIQUE: Chest, one view. FINDINGS: Examination limited by habitus. Right-sided dialysis catheter with distal tips in the expected location of the cavoatrial junction and proximal right atrium. LUNGS: Moderate pulmonary venous congestion. Increasing central vascular congestion. Left basilar atelectasis/ infiltrate and small pleural effusion. No definite pneumothorax. Please note that chest x-ray has limited sensitivity for the detection of pulmonary masses. CARDIOVASCULAR: Cardiomegaly. OSSEOUS STRUCTURES: Degenerative changes. VISUALIZED UPPER ABDOMEN: Unremarkable. OTHER FINDINGS: None. IMPRESSION: Right-sided dialysis catheter with distal tips in the expected location of the cavoatrial junction and proximal right atrium. Moderate pulmonary venous congestion. Increasing central vascular congestion. Left basilar atelectasis/ infiltrate and small pleural effusion. Cardiomegaly.
--- NOTE | 2016-06-17 12:27 | CP.PCM.PN ---
Subjective - Date & Time of Evaluation Date of Evaluation: 06/17/16 Time of Evaluation: 07:00 - Subjective Subjective: or first dialysis today. Pre-renal azotemia worse vanco level ok blood c/s negative Objective - Vital Signs/Intake and Output Vital Signs (last 24 hours): Temp Pulse Resp BP Pulse Ox 98.3 F 99 H 20 160/58 H 98 06/17/16 10:00 06/17/16 11:00 06/17/16 11:00 06/17/16 11:00 06/17/16 11:00 Intake and Output: 06/17/16 06/17/16 06:59 18:59 Intake Total 1200 500 Output Total 90 15 Balance 1110 485 - Medications Medications: Current Medications Calcium Acetate (Phoslo) 1,334 mg PO TIDCC [facility] Metronidazole (Flagyl) 100 mls @ 100 mls/hr IVPB Q8H [facility] Last Admin: 06/17/16 10:32 Dose: 100 mls/hr Cefepime HCl (Maxipime Iv 1 Gm Premix) 50 mls @ 100 mls/hr IVPB Q24H [facility] Last Admin: 06/16/16 13:30 Dose: 100 mls/hr Sodium Bicarbonate 150 meq/ (Dextrose) 1,000 mls @ 30 mls/hr IV .Q24H [facility] Pantoprazole Sodium (Protonix Ec Tab) 40 mg PO DAILY [facility] Last Admin: 06/17/16 10:33 Dose: Not Given - Labs Labs: 06/17/16 06:20 06/17/16 06:20 PT 17.3 SECONDS (9.7-12.2) H 06/17/16 06:20 INR 1.5 06/17/16 06:20 APTT 28 SECONDS (21-34) 06/17/16 06:20 Assessment and Plan (1) Acidosis Status: Acute (2) Acute renal failure Status: Acute (3) Arterial, arteriole and capillary disease Status: Acute (4) CHF (congestive heart failure) Status: Acute (5) Hyponatremia Status: Acute (6) Abdominal pain Status: Acute (7) Acute renal insufficiency Status: Acute (8) Breath shortness Status: Acute (9) Cellulitis and abscess of leg Status: Acute
--- NOTE | 2016-06-17 14:37 | CP.PCM.PN ---
Subjective - Date & Time of Evaluation Date of Evaluation: 06/17/16 Time of Evaluation: 12:40 - Subjective Subjective: clinically same Objective - Vital Signs/Intake and Output Vital Signs (last 24 hours): Temp Pulse Resp BP Pulse Ox 97 F L 106 H 21 138/84 99 06/17/16 12:35 06/17/16 13:00 06/17/16 13:00 06/17/16 13:00 06/17/16 13:00 Intake and Output: 06/17/16 06/17/16 06:59 18:59 Intake Total 1200 670 Output Total 90 15 Balance 1110 655 - Medications Medications: Current Medications Calcium Acetate (Phoslo) 1,334 mg PO TIDCC [facility] Fluconazole (Diflucan) 100 mg PO DAILY [facility] Metronidazole (Flagyl) 100 mls @ 100 mls/hr IVPB Q8H [facility] Last Admin: 06/17/16 10:32 Dose: 100 mls/hr Cefepime HCl (Maxipime Iv 1 Gm Premix) 50 mls @ 100 mls/hr IVPB Q24H [facility] Last Admin: 06/16/16 13:30 Dose: 100 mls/hr Sodium Bicarbonate 150 meq/ (Dextrose) 1,000 mls @ 30 mls/hr IV .Q24H [facility] Pantoprazole Sodium (Protonix Ec Tab) 40 mg PO DAILY [facility] Last Admin: 06/17/16 10:33 Dose: Not Given - Labs Labs: 06/17/16 06:20 06/17/16 06:20 PT 17.3 SECONDS (9.7-12.2) H 06/17/16 06:20 INR 1.5 06/17/16 06:20 APTT 28 SECONDS (21-34) 06/17/16 06:20 - Constitutional Appears: Well - Head Exam Head Exam: ATRAUMATIC, NORMAL INSPECTION, NORMOCEPHALIC - Eye Exam Eye Exam: EOMI, Normal appearance, PERRL Pupil Exam: NORMAL ACCOMODATION, PERRL - ENT Exam ENT Exam: Mucous Membranes Moist, Normal Exam - Neck Exam Neck Exam: Full ROM, Normal Inspection. absent: Lymphadenopathy - Respiratory Exam Respiratory Exam: Decreased Breath Sounds - Cardiovascular Exam Cardiovascular Exam: REGULAR RHYTHM, +S1, +S2 - GI/Abdominal Exam GI & Abdominal Exam: Soft, Diminished Bowel Sounds - Rectal Exam Rectal Exam: Deferred
--- NOTE | 2016-06-17 14:50 | VASCLAB ---
PROCEDURE: Lower Extremity Venous Duplex Exam. HISTORY: Edema, R/O DVT, PRIORS: None. TECHNIQUE: Bilateral common femoral, femoral, popliteal and posterior tibial, peroneal and great saphenous veins were evaluated. Flow was assessed with color Doppler, compressibility, assessment of phasic flow and augmentation response. Report prepared by POLINA Murphy FINDINGS: RIGHT: 1. Common Femoral Vein: 1.1. Compressibility - Fully compressible: Thrombus - None : Flow - Phasic: Augmentation -Normal: Reflux - None. 2. Femoral Vein: (proximal and mid only) 2.1. Compressibility - Fully compressible: Thrombus - None : Flow - Phasic: Augmentation -Normal: Reflux - None. 3. Popliteal Vein: 3.1. Compressibility - Fully compressible: Thrombus - None : Flow - Phasic: Augmentation -Normal: Reflux - None. 4. Posterior Tibial Vein: 4.1. Compressibility - Fully compressible: Thrombus - None: Flow - Phasic: Augmentation -Normal: Reflux - None. 5. Peroneal Vein: 5.1. Compressibility - Fully compressible: Thrombus - None: Flow - Phasic: Augmentation -Normal: Reflux - None. 6. Great Saphenous Vein: 6.1. Compressibility - Fully compressible: Thrombus - None: Flow - Phasic: Augmentation - Normal: Reflux - None. LEFT: 1. Common Femoral Vein: 1.1. Compressibility - Fully compressible: Thrombus - None: Flow - Phasic: Augmentation -Normal: Reflux - None. 2. Femoral Vein: 2.1. Compressibility - Fully compressible: Thrombus - None: Flow - Phasic: Augmentation -Normal: Reflux - None. 3. Popliteal Vein: 3.1. Compressibility - Fully compressible: Thrombus - None : Flow - Phasic: Augmentation -Normal: Reflux - None. 4. Posterior Tibial Vein: 4.1. Compressibility - Fully compressible: Thrombus - None: Flow - Phasic: Augmentation -Normal: Reflux - None. 5. Peroneal Vein: 5.1. Compressibility - Fully compressible: Thrombus - None: Flow - Phasic: Augmentation -Normal: Reflux - None. 6. Great Saphenous Vein: 6.1. Compressibility - Fully compressible: Thrombus - None: Flow - Phasic: Augmentation - Normal: Reflux - None. OTHER FINDINGS: Right: Unable to image the right femoral vein distally, due to swelling. Proximal and mid femoral vein is compressible. Left: None significant. IMPRESSION: Right: No evidence of deep or superficial vein thrombosis of the right lower extremity. Normal valve function noted of the right side. Left: No evidence of deep or superficial vein thrombosis of the left lower extremity. Normal valve function noted of the left side.
[2016-06-17] MEDS: Cefepime IV 1 gm in Dextrose 50 ML IVPB SCH (15:00)
--- NOTE | 2016-06-17 15:42 | RAD ---
PROCEDURE: Intraoperative Fluoroscopy. HISTORY: RENAL FAILURE FINDINGS: Fluoroscopic assistance was provided for right central venous catheter placement. Please refer to the operative report from
[2016-06-18] MEDS: metroNIDAZOLE IV 500 mg/100 ml 100 ML IVPB SCH ×3 (01:04→19:00)
[2016-06-18 06:24] LABS: BASO % 0.1 % (0.0-2.0); EOS # 0.1 K/uL (0.0-0.7); EOS % 0.5 % (0.0-4.0); HEMATOCRIT 21.3 % (34.0-47.0); LYMPH # 1.9 K/uL (1.0-4.3); LYMPH % 15.3 % (20.0-40.0); MEAN CELL VOLUME 92.7 fL (81.0-99.0); MEAN CORPUSCULAR HEMOGLOBIN 31.2 pg (27.0-31.0); MEAN CORPUSCULAR HGB CONC 33.7 g/dL (33.0-37.0); MEAN PLATELET VOLUME 9.5 fL (7.2-11.7); MONO # 0.5 K/uL (0.0-0.8); MONO % 4.3 % (0.0-10.0); RED CELL DISTRIBUTION WIDTH 14.6 % (11.5-14.5); WHITE BLOOD COUNT 12.7 K/uL (4.8-10.8)
[2016-06-18 06:26] LABS: POTASSIUM 3.8 mmol/L (3.6-5.2)
[2016-06-18 06:28] LABS: BILIRUBIN,TOTAL 0.3 mg/dL (0.2-1.3); TOTAL PROTEIN 3.4 g/dL (6.3-8.3)
[2016-06-18 06:29] LABS: MAGNESIUM 1.6 mg/dL (1.6-2.3); PHOSPHOROUS 7.7 mg/dL (2.5-4.5)
[2016-06-18 06:43] LABS: CALCIUM 5.8 mg/dl (8.6-10.4)
--- NOTE | 2016-06-18 08:51 | CP.PCM.PN ---
Subjective - Date & Time of Evaluation Date of Evaluation: 06/18/16 Time of Evaluation: 07:10 - Subjective Subjective: Vascular Surgery Pt S&E. NAEO. Had HD yesterday. No complaints. Objective - Vital Signs/Intake and Output Vital Signs (last 24 hours): Temp Pulse Resp BP Pulse Ox 98.6 F 99 H 20 127/55 L 96 06/18/16 08:00 06/18/16 08:00 06/18/16 08:00 06/18/16 08:00 06/18/16 08:00 Intake and Output: 06/18/16 06/18/16 06:59 18:59 Intake Total 580 130 Output Total 125 Balance 455 130 - Medications Medications: Current Medications Calcitriol (Rocaltrol) 0.25 mcg PO DAILY [facility] Last Admin: 06/17/16 18:05 Dose: 0.25 mcg Calcium Acetate (Phoslo) 1,334 mg PO TIDCC [facility] Last Admin: 06/18/16 07:40 Dose: 1,334 mg Fluconazole (Diflucan) 100 mg PO DAILY [facility] Last Admin: 06/17/16 17:09 Dose: 100 mg Metronidazole (Flagyl) 100 mls @ 100 mls/hr IVPB Q8H [facility] Last Admin: 06/18/16 01:04 Dose: 100 mls/hr Cefepime HCl (Maxipime Iv 1 Gm Premix) 50 mls @ 100 mls/hr IVPB Q24H [facility] Last Admin: 06/17/16 15:00 Dose: 100 mls/hr Sodium Bicarbonate 150 meq/ (Dextrose) 1,000 mls @ 30 mls/hr IV .Q24H [facility] Last Admin: 06/17/16 17:13 Dose: Not Given Pantoprazole Sodium (Protonix Ec Tab) 40 mg PO DAILY [facility] Last Admin: 06/17/16 10:33 Dose: Not Given - Labs Labs: 06/18/16 06:08 06/18/16 06:08 PT 17.3 SECONDS (9.7-12.2) H 06/17/16 06:20 INR 1.5 06/17/16 06:20 APTT 28 SECONDS (21-34) 06/17/16 06:20 - Constitutional Appears: Non-toxic, No Acute Distress - Head Exam Head Exam: ATRAUMATIC, NORMOCEPHALIC - Eye Exam Eye Exam: EOMI. absent: Scleral icterus - Respiratory Exam Respiratory Exam: NORMAL BREATHING PATTERN. absent: Respiratory Distress Additional comments: Permacath dressing C/D/I, no TTP, no hematoma - GI/Abdominal Exam GI & Abdominal Exam: Soft. absent: Distended, Tenderness - Neurological Exam Neurological Exam: Alert, Awake - Skin Skin Exam: Dry, Warm Assessment and Plan - Assessment and Plan (Free Text) Assessment: 86F w/ renal failure s/p R IJ permacath placement, POD#1 Plan: Permacath functioning well. Will consider possible fistula when pt is more medically optimized D/W Dr. Juan William PGY3
[2016-06-18] MEDS: Sodium Bicarbonate 8.4% 150 MEQ in Dextrose 5% In Water 850 ML IV SCH ×2 (11:04→11:06)
[2016-06-18] MEDS: Pantoprazole 40 mg EC Tab PO SCH (13:14)
[2016-06-18] MEDS: Cefepime IV 1 gm in Dextrose 50 ML IVPB SCH (13:16)
--- NOTE | 2016-06-18 14:54 | CP.CCUPN ---
Addendum entered and electronically signed by Shanel Acevedo DO 06/18/16 15 :25: Patient medically stable for transfer out of ICU to medical floor. Original Note: <Shanel Acevedo - Last Filed: 06/18/16 15:20> CCU Subjective - Physician Review Subjective (Free Text): 06/17/16 18:05 Patient seen and examined in no acute distress. Patient denies shortness of breath however wheezing bilaterally. Patient is awake and responsive denying pain at this time. Patient admits to some weakness. She denies subjective fevers or chills, nausea, vomiting, diarrhea, constipation, headaches, chest pain, urinary changes, paresthesias at this time. 06/18/16 15:15 Patient seen and examined in no acute distress. There were no acute events overnight per nursing. Patient is s/p day 1 R IJ permacath placement. Patient is awake, alert and responsive denying pain at this time. Patient admits to some weakness. She denies subjective fevers or chills, dyspnea, nausea, vomiting , diarrhea, constipation, headaches, chest pain, cough or paresthesias at this time. 06/18/16 15:18 Critical Care Time Spent (in minutes): 39 CCU Objective - Vital Signs / Intake & Output Vital Signs (Last 4 hours): Vital Signs Temp Pulse Pulse Resp BP BP Pulse Ox 06/18/16 13:21 100 H 17 142/60 98 06/18/16 13:13 97 H 20 140/63 97 06/18/16 13:10 98.1 F 95 H 19 125/86 99 06/18/16 13:06 102 H 16 125/86 98 06/18/16 13:00 95 H 17 99 06/18/16 12:51 96 H 17 132/64 99 06/18/16 12:50 98.1 F 95 H 19 132/64 06/18/16 12:40 135/63 06/18/16 12:36 93 H 19 135/63 99 06/18/16 12:21 96 H 16 144/69 99 06/18/16 12:13 95 H 18 99 06/18/16 12:10 133/67 06/18/16 12:06 96 H 21 133/67 99 06/18/16 12:03 97.6 F 98 H 18 146/69 06/18/16 12:01 95 H 19 146/69 99 06/18/16 12:00 95 H 18 98 06/18/16 11:51 95 H 20 136/73 99 06/18/16 11:48 97.5 F L 98 H 22 136/73 06/18/16 11:46 97.5 F L 95 H 22 138/61 06/18/16 11:40 138/61 06/18/16 11:39 97.5 F L 93 H 18 138/61 06/18/16 11:36 94 H 20 138/61 100 06/18/16 11:21 93 H 15 146/68 98 06/18/16 11:16 93 H 23 99 06/18/16 11:10 141/66 06/18/16 11:06 96 H 17 141/66 100 06/18/16 11:00 96 H 17 99 06/18/16 10:55 128/64 Intake and Output (Last 8hrs): Intake & Output 06/17/16 06/18/16 06/18/16 22:59 06:59 14:59 Intake Total 673 037 4446 Output Total 20 125 15 Balance 579 480 6214 Weight 178 lb Intake: Intake, IV Amount 390 240 220 Left Wrist 150 Left Hand 240 240 Left Hand 220 Oral 100 120 150 Blood Product 650 Red Blood Cells Cpd As1 325 Lr Unit [id number] Red Blood Cells Cpd As1 325 Lr Unit [id number] Other 50 Red Blood Cells Cpd As1 50 Lr Unit [id number] Output: Urine 20 125 15 Urethral (Hammond) 20 125 15 Other: # Bowel Movements 1 - Physical Exam Head: Positive for: Atraumatic, Normocephalic Pupils: Positive for: PERRL Conjunctiva: Positive for: Normal Mouth: Positive for: Moist Mucous Membranes Nose (External): Positive for: Atraumatic Neck: Positive for: Normal Range of Motion Respiratory/Chest: Positive for: Clear to Auscultation, Wheezes. Negative for: Respiratory Distress Cardiovascular: Positive for: Murmurs, Normal S1, S2 Abdomen: Positive for: Normal Bowel Sounds. Negative for: Tenderness, Distention Back: Negative for: CVA Tenderness Upper Extremity: Positive for: Normal Inspection, Other (Permacath dressing C/D/ I, non TTP, no erythema or hematoma noted) Lower Extremity: Positive for: Edema, Erythema, Capillary Refill < 2 s Neurological: Positive for: Speech Normal, Motor Func Grossly Intact Skin: Positive for: Warm, Dry, Rashes (B\L LE) Psychiatric: Positive for: Alert, Oriented x 3, Normal Insight - Medications Active Medications: Active Medications Generic Name Dose Route Start Last Admin Trade Name Freq PRN Reason Stop Dose Admin Calcitriol 0.25 mcg 06/17/16 17:45 06/18/16 13:14 Rocaltrol PO 0.25 mcg DAILY [facility] Administration Calcium Acetate 1,334 mg 06/17/16 10:21 06/18/16 13:15 Phoslo PO 1,334 mg TIDCC [facility] Administration Fluconazole 100 mg 06/17/16 12:30 06/18/16 13:15 Diflucan PO 100 mg DAILY [facility] Administration Metronidazole 100 mls @ 100 mls/hr 06/15/16 02:00 06/18/16 13:14 Flagyl IVPB 100 mls/hr Q8H [facility] Administration Cefepime HCl 50 mls @ 100 mls/hr 06/16/16 13:30 06/18/16 13:16 Maxipime Iv 1 Gm Premix IVPB 100 mls/hr Q24H [facility] Administration Pantoprazole Sodium 40 mg 06/15/16 10:00 06/18/16 13:14 Protonix Ec Tab PO 40 mg DAILY [facility] Administration - Patient Studies Lab Studies: Microbiology Studies 06/16/16 18:15 Blood Culture - Preliminary Blood-Venous NO GROWTH AFTER 24 HOURS 06/16/16 17:45 Blood Culture - Preliminary Blood-Venous NO GROWTH AFTER 24 HOURS 06/15/16 Unknown Urine Culture - Final Urine,Hammond Yeast Species Lab Studies 06/18/16 06/18/16 06/17/16 Range/Units 09:32 06:08 09:57 WBC 12.7 H (4.8-10.8) K/uL RBC 2.30 L (3.80-5.20) Mil/uL Hgb 7.2 L (11.0-16.0) g/dL Hct 21.3 L (34.0-47.0) % MCV 92.7 (81.0-99.0) fL MCH 31.2 H (27.0-31.0) pg MCHC 33.7 (33.0-37.0) g/dL RDW 14.6 H (11.5-14.5) % Plt Count 122 L D (130-400) K/uL MPV 9.5 (7.2-11.7) fL Neut % (Auto) 79.8 H (50.0-75.0) % Lymph % (Auto) 15.3 L (20.0-40.0) % [place] % (Auto) 4.3 (0.0-10.0) % Eos % (Auto) 0.5 (0.0-4.0) % Baso % (Auto) 0.1 (0.0-2.0) % Neut # 10.1 H (1.8-7.0) K/uL Lymph # 1.9 (1.0-4.3) K/uL [place] # 0.5 (0.0-0.8) K/uL Eos # 0.1 (0.0-0.7) K/uL Baso # 0.0 (0.0-0.2) K/uL Sodium 131 L (132-148) mmol/L Potassium 3.8 (3.6-5.2) mmol/L Chloride 91 L (98-107) mmol/L Carbon Dioxide 24 (22-30) mmol/L Anion Gap 20 (10-20) BUN 108 H* D (7-17) mg/dL Creatinine 3.9 H (0.7-1.2) MG/DL Est GFR ( Amer) 13 Est GFR (Non-Af Amer) 11 Random Glucose 82 (65-105) mg/dL Calcium 5.8 L* (8.6-10.4) mg/dl Phosphorus 7.7 H (2.5-4.5) mg/dL Magnesium 1.6 (1.6-2.3) mg/dL Total Bilirubin 0.3 (0.2-1.3) mg/dL AST 29 (14-36) U/L ALT 34 (9-52) U/L Alkaline Phosphatase 50 (38-126) U/L Total Protein 3.4 L (6.3-8.3) g/dL Albumin 1.7 L (3.5-5.0) g/dL Globulin 1.7 L (2.2-3.9) gm/dL Albumin/Globulin Ratio 1.0 (1.0-2.1) Procalcitonin 17.72 H (0.19-0.49) NG/ML PTH Intact Whole Molec (14-64) pg/mL Proteinase 3 (PR3) (<1.0) AI Myeloperoxidase Ab (<1.0) AI Blood Type O POSITIVE Antibody Screen Negative 06/17/16 06/15/16 Range/Units 08:22 08:46 WBC (4.8-10.8) K/uL RBC (3.80-5.20) Mil/uL Hgb (11.0-16.0) g/dL Hct (34.0-47.0) % MCV (81.0-99.0) fL MCH (27.0-31.0) pg MCHC (33.0-37.0) g/dL RDW (11.5-14.5) % Plt Count (130-400) K/uL MPV (7.2-11.7) fL Neut % (Auto) (50.0-75.0) % Lymph % (Auto) (20.0-40.0) % [place] % (Auto) (0.0-10.0) % Eos % (Auto) (0.0-4.0) % Baso % (Auto) (0.0-2.0) % Neut # (1.8-7.0) K/uL Lymph # (1.0-4.3) K/uL [place] # (0.0-0.8) K/uL Eos # (0.0-0.7) K/uL Baso # (0.0-0.2) K/uL Sodium (132-148) mmol/L Potassium (3.6-5.2) mmol/L Chloride (98-107) mmol/L Carbon Dioxide (22-30) mmol/L Anion Gap (10-20) BUN (7-17) mg/dL Creatinine (0.7-1.2) MG/DL Est GFR ( Amer) Est GFR (Non-Af Amer) Random Glucose (65-105) mg/dL Calcium (8.6-10.4) mg/dl Phosphorus (2.5-4.5) mg/dL Magnesium (1.6-2.3) mg/dL Total Bilirubin (0.2-1.3) mg/dL AST (14-36) U/L ALT (9-52) U/L Alkaline Phosphatase (38-126) U/L Total Protein (6.3-8.3) g/dL Albumin (3.5-5.0) g/dL Globulin (2.2-3.9) gm/dL Albumin/Globulin Ratio (1.0-2.1) Procalcitonin (0.19-0.49) NG/ML PTH Intact Whole Molec 238 H (14-64) pg/mL Proteinase 3 (PR3) <1.0 (<1.0) AI Myeloperoxidase Ab <1.0 (<1.0) AI Blood Type Antibody Screen Laboratory Results - last 24 hr 06/15/16 06/17/16 06/17/16 08:46 08:22 09:57 WBC RBC Hgb Hct MCV MCH MCHC RDW Plt Count MPV Neut % (Auto) Lymph % (Auto) [place] % (Auto) Eos % (Auto) Baso % (Auto) Neut # Lymph # [place] # Eos # Baso # Sodium Potassium Chloride Carbon Dioxide Anion Gap BUN Creatinine Est GFR ( Amer) Est GFR (Non-Af Amer) Random Glucose Calcium Phosphorus Magnesium Total Bilirubin AST ALT Alkaline Phosphatase Total Protein Albumin Globulin Albumin/Globulin Ratio Procalcitonin 17.72 H PTH Intact Whole Molec 238 H Proteinase 3 (PR3) <1.0 Myeloperoxidase Ab <1.0 Blood Type Antibody Screen 06/18/16 06/18/16 06:08 09:32 WBC 12.7 H RBC 2.30 L Hgb 7.2 L Hct 21.3 L MCV 92.7 MCH 31.2 H MCHC 33.7 RDW 14.6 H Plt Count 122 L D MPV 9.5 Neut % (Auto) 79.8 H Lymph % (Auto) 15.3 L [place] % (Auto) 4.3 Eos % (Auto) 0.5 Baso % (Auto) 0.1 Neut # 10.1 H Lymph # 1.9 [place] # 0.5 Eos # 0.1 Baso # 0.0 Sodium 131 L Potassium 3.8 Chloride 91 L Carbon Dioxide 24 Anion Gap 20 BUN 108 H* D Creatinine 3.9 H Est GFR ( Amer) 13 Est GFR (Non-Af Amer) 11 Random Glucose 82 Calcium 5.8 L* Phosphorus 7.7 H Magnesium 1.6 Total Bilirubin 0.3 AST 29 ALT 34 Alkaline Phosphatase 50 Total Protein 3.4 L Albumin 1.7 L Globulin 1.7 L Albumin/Globulin Ratio 1.0 Procalcitonin PTH Intact Whole Molec Proteinase 3 (PR3) Myeloperoxidase Ab Blood Type O POSITIVE Antibody Screen Negative Review of Systems - Review of Systems Review of Systems: as noted in subjective Critical Care Progress Note - Prophylaxis GI Prophylaxis GI: PPI - Nutrition Nutrition: Nutrition Category Date Time Status Renal Diet [DIET] Diets 06/17/16 Lunch Active Assessment/Plan - Assessment and Plan (Free Text) Assessment: 86-year-old female with recent hospitalization for UTI presents with cellulitis of LE with associated pain and pruritus. She wzs prescribed antibiotics by healthcare administrator with no improvement and thus asked to come to the hospital for further evaluation. Patient presented with sepsis , worsening kidney function, hyponatremic and CHF. She is s/p day 1 R IJ permacath placement Plan: Neuro: AAOx3 Cardio: Normotensive at this time. Cont to monitor Cardiomegaly noted on XRAY Pulm: Chest XRAY- moderate pulm venous congestion; increasing central vascular congestion; left basilar atelectasis/ infiltrates and small effusion GI: Protonix 40 mg PO daily Hematology: Heparin discontinued at this time due to drop in platelets- thrombocytopenia. Hgb/hct: 7.2/21.3 To be transfused 2 units in dialysis. Monitor Endocrine: Maintain euglycemia Renal: s/p R IJ permacath placement. Had dialysis yesterday and today. Phoslo started and increased Monitor Ca Renal U/S: increased echogenicity of renal cortex suggestive of medical renal disease- no calculi or hydronephrosis noted- hammond visualized ID: Broad spectrum abx: Flagyl Q8H, Cefepime dialy. Monitor Vanco level 9.78 F/U cultures. negative blood cultures. Elevate LE Wound Care eval : Hammond D/C MSK: Duplex U/S- no apparent evidence of DVT bilaterally; of note right femoral vein not well imaged distally due to swelling Prophylaxis: Heparin discontinued at this time due to drop in platelets. Cannot rule out drug induced thrombocytopenia. Protonix 40 mg PO daily Turn 2 QH to prevent bed sores <Zak Cerrato S - Last Filed: 06/18/16 18:30> CCU Objective - Vital Signs / Intake & Output Vital Signs (Last 4 hours): Vital Signs Temp Pulse Resp BP Pulse Ox 06/18/16 16:00 98.7 F 87 20 138/62 98 06/18/16 15:00 98 H 22 96 Intake and Output (Last 8hrs): Intake & Output 06/18/16 06/18/16 06/18/16 06:59 14:59 22:59 Intake Total 360 1220 0 Output Total 125 25 5 Balance 235 1195 -5 Weight 178 lb Intake: Intake, IV Amount 240 270 0 Left Hand 240 Left Hand 270 0 Oral 120 250 0 Blood Product 650 Red Blood Cells Cpd As1 325 Lr Unit [id number] Red Blood Cells Cpd As1 325 Lr Unit [id number] Other 50 Red Blood Cells Cpd As1 50 Lr Unit [id number] Output: Urine 125 25 5 Urethral (Hammond) 125 25 5 Other: # Bowel Movements 1 0 0 - Medications Active Medications: Active Medications Generic Name Dose Route Start Last Admin Trade Name Budq PRN Reason Stop Dose Admin Calcitriol 0.25 mcg 06/17/16 17:45 06/18/16 13:14 Rocaltrol PO 0.25 mcg DAILY [facility] Administration Calcium Acetate 1,334 mg 06/17/16 10:21 06/18/16 13:15 Phoslo PO 1,334 mg TIDCC [facility] Administration Fluconazole 100 mg 06/17/16 12:30 06/18/16 13:15 Diflucan PO 100 mg DAILY [facility] Administration Metronidazole 100 mls @ 100 mls/hr 06/15/16 02:00 06/18/16 13:14 Flagyl IVPB 100 mls/hr Q8H [facility] Administration Cefepime HCl 50 mls @ 100 mls/hr 06/16/16 13:30 06/18/16 13:16 Maxipime Iv 1 Gm Premix IVPB 100 mls/hr Q24H [facility] Administration Pantoprazole Sodium 40 mg 06/15/16 10:00 06/18/16 13:14 Protonix Ec Tab PO 40 mg DAILY [facility] Administration - Patient Studies Lab Studies: Microbiology Studies 06/16/16 18:15 Blood Culture - Preliminary Blood-Venous NO GROWTH AFTER 24 HOURS 06/16/16 17:45 Blood Culture - Preliminary Blood-Venous NO GROWTH AFTER 24 HOURS Lab Studies 06/18/16 06/18/16 06/17/16 Range/Units 09:32 06:08 09:57 WBC 12.7 H (4.8-10.8) K/uL RBC 2.30 L (3.80-5.20) Mil/uL Hgb 7.2 L (11.0-16.0) g/dL Hct 21.3 L (34.0-47.0) % MCV 92.7 (81.0-99.0) fL MCH 31.2 H (27.0-31.0) pg MCHC 33.7 (33.0-37.0) g/dL RDW 14.6 H (11.5-14.5) % Plt Count 122 L D (130-400) K/uL MPV 9.5 (7.2-11.7) fL Neut % (Auto) 79.8 H (50.0-75.0) % Lymph % (Auto) 15.3 L (20.0-40.0) % [place] % (Auto) 4.3 (0.0-10.0) % Eos % (Auto) 0.5 (0.0-4.0) % Baso % (Auto) 0.1 (0.0-2.0) % Neut # 10.1 H (1.8-7.0) K/uL Lymph # 1.9 (1.0-4.3) K/uL [place] # 0.5 (0.0-0.8) K/uL Eos # 0.1 (0.0-0.7) K/uL Baso # 0.0 (0.0-0.2) K/uL Sodium 131 L (132-148) mmol/L Potassium 3.8 (3.6-5.2) mmol/L Chloride 91 L (98-107) mmol/L Carbon Dioxide 24 (22-30) mmol/L Anion Gap 20 (10-20) BUN 108 H* D (7-17) mg/dL Creatinine 3.9 H (0.7-1.2) MG/DL Est GFR ( Amer) 13 Est GFR (Non-Af Amer) 11 Random Glucose 82 (65-105) mg/dL Calcium 5.8 L* (8.6-10.4) mg/dl Phosphorus 7.7 H (2.5-4.5) mg/dL Magnesium 1.6 (1.6-2.3) mg/dL Total Bilirubin 0.3 (0.2-1.3) mg/dL AST 29 (14-36) U/L ALT 34 (9-52) U/L Alkaline Phosphatase 50 (38-126) U/L Total Protein 3.4 L (6.3-8.3) g/dL Albumin 1.7 L (3.5-5.0) g/dL Globulin 1.7 L (2.2-3.9) gm/dL Albumin/Globulin Ratio 1.0 (1.0-2.1) Procalcitonin 17.72 H (0.19-0.49) NG/ML PTH Intact Whole Molec (14-64) pg/mL Proteinase 3 (PR3) (<1.0) AI Myeloperoxidase Ab (<1.0) AI Blood Type O POSITIVE Antibody Screen Negative 06/17/16 06/15/16 Range/Units 08:22 08:46 WBC (4.8-10.8) K/uL RBC (3.80-5.20) Mil/uL Hgb (11.0-16.0) g/dL Hct (34.0-47.0) % MCV (81.0-99.0) fL MCH (27.0-31.0) pg MCHC (33.0-37.0) g/dL RDW (11.5-14.5) % Plt Count (130-400) K/uL MPV (7.2-11.7) fL Neut % (Auto) (50.0-75.0) % Lymph % (Auto) (20.0-40.0) % [place] % (Auto) (0.0-10.0) % Eos % (Auto) (0.0-4.0) % Baso % (Auto) (0.0-2.0) % Neut # (1.8-7.0) K/uL Lymph # (1.0-4.3) K/uL [place] # (0.0-0.8) K/uL Eos # (0.0-0.7) K/uL Baso # (0.0-0.2) K/uL Sodium (132-148) mmol/L Potassium (3.6-5.2) mmol/L Chloride (98-107) mmol/L Carbon Dioxide (22-30) mmol/L Anion Gap (10-20) BUN (7-17) mg/dL Creatinine (0.7-1.2) MG/DL Est GFR ( Amer) Est GFR (Non-Af Amer) Random Glucose (65-105) mg/dL Calcium (8.6-10.4) mg/dl Phosphorus (2.5-4.5) mg/dL Magnesium (1.6-2.3) mg/dL Total Bilirubin (0.2-1.3) mg/dL AST (14-36) U/L ALT (9-52) U/L Alkaline Phosphatase (38-126) U/L Total Protein (6.3-8.3) g/dL Albumin (3.5-5.0) g/dL Globulin (2.2-3.9) gm/dL Albumin/Globulin Ratio (1.0-2.1) Procalcitonin (0.19-0.49) NG/ML PTH Intact Whole Molec 238 H (14-64) pg/mL Proteinase 3 (PR3) <1.0 (<1.0) AI Myeloperoxidase Ab <1.0 (<1.0) AI Blood Type Antibody Screen Laboratory Results - last 24 hr 06/15/16 06/17/16 06/17/16 08:46 08:22 09:57 WBC RBC Hgb Hct MCV MCH MCHC RDW Plt Count MPV Neut % (Auto) Lymph % (Auto) [place] % (Auto) Eos % (Auto) Baso % (Auto) Neut # Lymph # [place] # Eos # Baso # Sodium Potassium Chloride Carbon Dioxide Anion Gap BUN Creatinine Est GFR ( Amer) Est GFR (Non-Af Amer) Random Glucose Calcium Phosphorus Magnesium Total Bilirubin AST ALT Alkaline Phosphatase Total Protein Albumin Globulin Albumin/Globulin Ratio Procalcitonin 17.72 H PTH Intact Whole Molec 238 H Proteinase 3 (PR3) <1.0 Myeloperoxidase Ab <1.0 Blood Type Antibody Screen 06/18/16 06/18/16 06:08 09:32 WBC 12.7 H RBC 2.30 L Hgb 7.2 L Hct 21.3 L MCV 92.7 MCH 31.2 H MCHC 33.7 RDW 14.6 H Plt Count 122 L D MPV 9.5 Neut % (Auto) 79.8 H Lymph % (Auto) 15.3 L [place] % (Auto) 4.3 Eos % (Auto) 0.5 Baso % (Auto) 0.1 Neut # 10.1 H Lymph # 1.9 [place] # 0.5 Eos # 0.1 Baso # 0.0 Sodium 131 L Potassium 3.8 Chloride 91 L Carbon Dioxide 24 Anion Gap 20 BUN 108 H* D Creatinine 3.9 H Est GFR ( Amer) 13 Est GFR (Non-Af Amer) 11 Random Glucose 82 Calcium 5.8 L* Phosphorus 7.7 H Magnesium 1.6 Total Bilirubin 0.3 AST 29 ALT 34 Alkaline Phosphatase 50 Total Protein 3.4 L Albumin 1.7 L Globulin 1.7 L Albumin/Globulin Ratio 1.0 Procalcitonin PTH Intact Whole Molec Proteinase 3 (PR3) Myeloperoxidase Ab Blood Type O POSITIVE Antibody Screen Negative Critical Care Progress Note - Nutrition Nutrition: Nutrition Category Date Time Status Renal Diet [DIET] Diets 06/17/16 Lunch Active Attending/Attestation - Attestation I have personally seen and examined this patient.: Yes I have fully participated in the care of the patient.: Yes I have reviewed all pertinent clinical information: Yes Notes (Text): 06/18/16 18:29 Patient seen and examined in the intensive care unit. Case discussed with staff in the morning rounds. Continue hemodialysis Stable for transfer to floor
[2016-06-18] MEDS ORDERED: Aluminum Hydroxide/Magnesium Hydroxide Susp (30 mL) PO ONE (21:15)
--- NOTE | 2016-06-18 22:00 | CP.PCM.PN ---
Subjective - Date & Time of Evaluation Date of Evaluation: 06/18/16 Objective - Vital Signs/Intake and Output Vital Signs (last 24 hours): Temp Pulse Resp BP Pulse Ox 98.7 F 87 20 138/62 98 06/18/16 16:00 06/18/16 16:00 06/18/16 16:00 06/18/16 16:00 06/18/16 16:00 Intake and Output: 06/18/16 06/19/16 18:59 06:59 Intake Total 1220 Output Total 30 Balance 1190 - Medications Medications: Current Medications Calcitriol (Rocaltrol) 0.25 mcg PO DAILY [facility] Last Admin: 06/18/16 13:14 Dose: 0.25 mcg Calcium Acetate (Phoslo) 1,334 mg PO TIDCC [facility] Last Admin: 06/18/16 18:00 Dose: 1,334 mg Fluconazole (Diflucan) 100 mg PO DAILY [facility] Last Admin: 06/18/16 13:15 Dose: 100 mg Metronidazole (Flagyl) 100 mls @ 100 mls/hr IVPB Q8H [facility] Last Admin: 06/18/16 19:00 Dose: 100 mls/hr Cefepime HCl (Maxipime Iv 1 Gm Premix) 50 mls @ 100 mls/hr IVPB Q24H [facility] Last Admin: 06/18/16 13:16 Dose: 100 mls/hr Pantoprazole Sodium (Protonix Ec Tab) 40 mg PO DAILY [facility] Last Admin: 06/18/16 13:14 Dose: 40 mg - Labs Labs: 06/18/16 06:08 06/18/16 06:08 PT 17.3 SECONDS (9.7-12.2) H 06/17/16 06:20 INR 1.5 06/17/16 06:20 APTT 28 SECONDS (21-34) 06/17/16 06:20
[2016-06-19] MEDS: metroNIDAZOLE IV 500 mg/100 ml 100 ML IVPB SCH ×3 (02:18→17:41)
[2016-06-19] MEDS: Pantoprazole 40 mg EC Tab PO SCH (09:15)
--- NOTE | 2016-06-19 10:53 | CP.PCM.PN ---
Subjective - Date & Time of Evaluation Date of Evaluation: 06/19/16 Time of Evaluation: 09:10 - Subjective Subjective: PGY2 Medicine Note - Dr. Jhonny Smith's Service: Patient seen and examined at bedside this AM. Patient reports improved b/l leg pain. Patient reports difficulty swallowing solid food. When asked 5 minutes later while she was eating purina, patient said she could swallow that just fine. Patient had oatmeal and eggs all over her chest. Patient denies fever, chills, chest pain, SOB, abdominal pain, nausea, vomiting, diarrhea, constipation, dysuria. Objective - Vital Signs/Intake and Output Vital Signs (last 24 hours): Temp Pulse Resp BP Pulse Ox 99.0 F 109 H 20 157/63 H 96 06/19/16 08:19 06/19/16 08:19 06/19/16 08:19 06/19/16 08:19 06/19/16 08:19 Intake and Output: 06/19/16 06/19/16 06:59 18:59 Intake Total 500 Balance 500 - Medications Medications: Current Medications Albuterol/Ipratropium (Duoneb 3 Mg/0.5 Mg (3 Ml) Ud) 3 ml INH RQ6 PRN PRN Reason: Shortness of Breath Calcitriol (Rocaltrol) 0.25 mcg PO DAILY [facility] Last Admin: 06/19/16 09:15 Dose: 0.25 mcg Calcium Acetate (Phoslo) 1,334 mg PO TIDCC [facility] Last Admin: 06/19/16 08:10 Dose: 1,334 mg Fluconazole (Diflucan) 100 mg PO DAILY [facility] Last Admin: 06/19/16 09:15 Dose: 100 mg Furosemide (Lasix) 40 mg IVP DAILY [facility] Metronidazole (Flagyl) 100 mls @ 100 mls/hr IVPB Q8H [facility] Last Admin: 06/19/16 09:15 Dose: 100 mls/hr Cefepime HCl (Maxipime Iv 1 Gm Premix) 50 mls @ 100 mls/hr IVPB Q24H [facility] Last Admin: 06/18/16 13:16 Dose: 100 mls/hr Pantoprazole Sodium (Protonix Ec Tab) 40 mg PO DAILY [facility] Last Admin: 06/19/16 09:15 Dose: 40 mg - Labs Labs: 06/18/16 06:08 06/18/16 06:08 PT 17.3 SECONDS (9.7-12.2) H 06/17/16 06:20 INR 1.5 06/17/16 06:20 APTT 28 SECONDS (21-34) 06/17/16 06:20 - Constitutional Appears: Non-toxic, No Acute Distress, Chronically Ill - Head Exam Head Exam: NORMAL INSPECTION - Eye Exam Eye Exam: EOMI - ENT Exam ENT Exam: Mucous Membranes Moist - Respiratory Exam Respiratory Exam: Clear to Ausculation Bilateral, NORMAL BREATHING PATTERN. absent: Rales, Rhonchi, Wheezes - Cardiovascular Exam Cardiovascular Exam: REGULAR RHYTHM, +S1, +S2. absent: Gallop, Rubs, Murmur - GI/Abdominal Exam GI & Abdominal Exam: Soft, Normal Bowel Sounds. absent: Tenderness - Extremities Exam Extremities Exam: Pedal Edema (b/l pitting edema 2+), Tenderness. absent: Normal Inspection (bright red shins and calf b/l with satellite lesions) - Neurological Exam Neurological Exam: Alert, Awake - Psychiatric Exam Psychiatric exam: Normal Affect, Normal Mood - Skin Skin Exam: Warm Assessment and Plan - Assessment and Plan (Free Text) Assessment: ESRD right IJ permacath placed on 06/18/16 F/U Creatinine Nephro consult - Dr. Almanzar - help appreciated Anemia 2 units pRBCs on 06/18/16 F/U CBC Lower extremity cellulitis Cefepime 1gm IVPB Q24H started 06/16/16 Flagyl 500mg IVPB Q8 started 06/15/16 Diflucan 100mg PO daily started 06/17/16 ID consult - Dr. Talley - help appreciated Elevated PTH Calcitriol 0.25mcg PO daily Phoslo 1334mg PO TIDCC Dysphagia F/U swallow eval Asthma Duoneb RQ6 PRN SOB Prophylaxis Protonix 40mg PO daily Holding heparin secondary to possible drug induced thrombocytopenia
[2016-06-19 11:08] LABS: BASO % 0.1 % (0.0-2.0); EOS % 0.1 % (0.0-4.0); HEMATOCRIT 30.7 % (34.0-47.0); LYMPH # 1.2 K/uL (1.0-4.3); LYMPH % 8.1 % (20.0-40.0); MEAN CORPUSCULAR HEMOGLOBIN 30.9 pg (27.0-31.0); MEAN CORPUSCULAR HGB CONC 34.5 g/dL (33.0-37.0); MEAN PLATELET VOLUME 7.7 fL (7.2-11.7); MONO # 0.4 K/uL (0.0-0.8); MONO % 2.9 % (0.0-10.0); PLATELET COUNT 111 K/uL (130-400); RED CELL DISTRIBUTION WIDTH 16.3 % (11.5-14.5); WHITE BLOOD COUNT 14.4 K/uL (4.8-10.8)
[2016-06-19 11:09] LABS: POTASSIUM 3.6 mmol/L (3.6-5.2)
[2016-06-19 11:11] LABS: ALB/GLOB RATIO 0.9 (1.0-2.1); TOTAL PROTEIN 3.8 g/dL (6.3-8.3)
[2016-06-19 11:12] LABS: CALCIUM 6.7 mg/dl (8.6-10.4); MAGNESIUM 1.7 mg/dL (1.6-2.3); MEAN CELL VOLUME 89.6 fL (81.0-99.0); PHOSPHOROUS 5.1 mg/dL (2.5-4.5)
[2016-06-19 11:38] LABS: METAMYELOCYTE 1 % (0-0); NEUTROPHIL 65 % (50-75); REACTIVE LYMPHOCYTES 3 % (0-0); TOTAL CELLS COUNTED 100
[2016-06-19] MEDS: Cefepime IV 1 gm in Dextrose 50 ML IVPB SCH (12:58)
--- NOTE | 2016-06-19 13:00 | CP.PCM.PN ---
Subjective - Date & Time of Evaluation Date of Evaluation: 06/19/16 Time of Evaluation: 12:00 - Subjective Subjective: feels better post HD x 2 appetite fair no cough chronic sob pain in legs no urinary complaints no abdominal pain no fever Objective - Vital Signs/Intake and Output Vital Signs (last 24 hours): Temp Pulse Resp BP Pulse Ox 99.0 F 109 H 20 167/79 H 96 06/19/16 08:19 06/19/16 08:19 06/19/16 08:19 06/19/16 10:54 06/19/16 08:19 Intake and Output: 06/19/16 06/19/16 06:59 18:59 Intake Total 500 Balance 500 - Medications Medications: Current Medications Albuterol/Ipratropium (Duoneb 3 Mg/0.5 Mg (3 Ml) Ud) 3 ml INH RQ6 PRN PRN Reason: Shortness of Breath Calcitriol (Rocaltrol) 0.25 mcg PO DAILY [facility] Last Admin: 06/19/16 09:15 Dose: 0.25 mcg Calcium Acetate (Phoslo) 1,334 mg PO TIDCC [facility] Last Admin: 06/19/16 08:10 Dose: 1,334 mg Fluconazole (Diflucan) 100 mg PO DAILY [facility] Last Admin: 06/19/16 09:15 Dose: 100 mg Furosemide (Lasix) 40 mg IVP DAILY [facility] Last Admin: 06/19/16 10:54 Dose: 40 mg Metronidazole (Flagyl) 100 mls @ 100 mls/hr IVPB Q8H [facility] Last Admin: 06/19/16 09:15 Dose: 100 mls/hr Cefepime HCl (Maxipime Iv 1 Gm Premix) 50 mls @ 100 mls/hr IVPB Q24H [facility] Last Admin: 06/18/16 13:16 Dose: 100 mls/hr Pantoprazole Sodium (Protonix Ec Tab) 40 mg PO DAILY [facility] Last Admin: 06/19/16 09:15 Dose: 40 mg - Labs Labs: 06/19/16 10:48 06/19/16 10:48 PT 17.3 SECONDS (9.7-12.2) H 06/17/16 06:20 INR 1.5 06/17/16 06:20 APTT 28 SECONDS (21-34) 06/17/16 06:20 - Constitutional Appears: Confused, Chronically Ill - Head Exam Head Exam: ATRAUMATIC - Eye Exam Eye Exam: EOMI, Normal appearance Pupil Exam: NORMAL ACCOMODATION - ENT Exam ENT Exam: Mucous Membranes Moist - Neck Exam Neck Exam: Full ROM. absent: Lymphadenopathy - Respiratory Exam Respiratory Exam: Wheezes. absent: Accessory Muscle Use - Cardiovascular Exam Cardiovascular Exam: REGULAR RHYTHM. absent: Rubs - GI/Abdominal Exam GI & Abdominal Exam: Soft. absent: Tenderness - Extremities Exam Additional comments: confluent erythema on bilateral legs - Neurological Exam Neurological Exam: Alert. absent: Oriented x3 Assessment and Plan - Assessment and Plan (Free Text) Assessment: new HD fluid overload bilateral lower extremity rash/cellulitis continue to remove fluid on HD will need nathan and dialysis disposition
--- NOTE | 2016-06-19 13:47 | VASCLAB ---
PROCEDURE: Upper Extremity Venous Duplex Exam HISTORY: avf PRIORS: None. TECHNIQUE: Bilateral upper extremity, internal jugular, subclavian, axillary, brachial, ulnar, radial, basilic and upper cephalic veins were evaluated. Flow was assessed with color Doppler, compressibility, assessment of phasic flow and augmentation response. Report prepared by Yvon Izaguirre, MAX, RVT FINDINGS: RIGHT: 1. Internal Jugular Vein: Compressibility - Fully compressible: Thrombus - None : Flow - Phasic 2. Subclavian Vein:Compressibility - Fully compressible: Thrombus - None : Flow - Phasic 3. Axillary Vein: Compressibility - Fully compressible: Thrombus - None 4. Brachial Vein: Compressibility - Fully compressible: Thrombus - None 5. Ulnar Vein:Compressibility - Fully compressible: Thrombus - None 6. Radial Vein:Compressibility - Fully compressible: Thrombus - None 7. Cephalic Vein: Compressibility - Fully compressible: thrombus - None 7.1. Upper Arm: Proximal Diameter: 0.41cm. Mid Diameter: 0.47cm. Distal Diameter: 0.56cm. Antecubital Fossa: 0.65cm. 7.2. Forearm: Proximal Diameter: 0.40cm. Mid Diameter:0.40cm. Distal Diameter: 0.32cm 8. Basilic Vein:Compressibility - Fully compressible: thrombus - None 8.1. Upper Arm:Proximal Diameter: 0.59cm. Mid Diameter: 0.56cm. Distal Diameter: 0.61cm. Antecubital Fossa: 0.66cm. 8.2. Forearm: Proximal Diameter: 0.41cm. Mid Diameter:0.34cm. Distal Diameter: 0.26cm. LEFT: 1. Internal Jugular Vein: Compressibility - Fully compressible: Thrombus - None : Flow - Phasic 2. Subclavian Vein:Compressibility - Fully compressible: Thrombus - None : Flow - Phasic 3. Axillary Vein: Compressibility - Fully compressible: Thrombus - None 4. Brachial Vein: Compressibility - Fully compressible: Thrombus - None 5. Ulnar Vein:Compressibility - Fully compressible: Thrombus - None 6. Radial Vein:Compressibility - Fully compressible: Thrombus - None 7. Cephalic Vein: Compressibility - Fully compressible: thrombus - None 7.1. Upper Arm: Proximal Diameter: 0.47cm. Mid Diameter: 0.50cm. Distal Diameter: 0.47cm. Antecubital Fossa: 0.65cm. 7.2. Forearm: Proximal Diameter: 0.36cm. Mid Diameter:0.26cm. Distal Diameter: 0.43cm 8. Basilic Vein:Compressibility - Fully compressible: thrombus - None 8.1. Upper Arm:Proximal Diameter: 0.58cm. Mid Diameter: 0.70cm. Distal Diameter: 0.64cm. Antecubital Fossa: 0.80cm. 8.2. Forearm: Proximal Diameter: 0.28cm. Mid Diameter:0.20cm. Distal Diameter: 0.19cm. OTHER FINDINGS: Right: None. Left: None. IMPRESSION: Right: Diameter measurements of the right cephalic vein is measured between 0.32 cm and 0.65 cm and basilic vein is measured between 0.26 cm and 0.66 cm. Left: Diameter measurements of the left cephalic vein is measured between 0.26 cm and 0.65 cm and basilic vein is measured between 0.19cm and 0.80cm.
--- NOTE | 2016-06-19 15:10 | CP.PCM.PN ---
Subjective - Date & Time of Evaluation Date of Evaluation: 06/19/16 Time of Evaluation: 10:20 - Subjective Subjective: clinically same Objective - Vital Signs/Intake and Output Vital Signs (last 24 hours): Temp Pulse Resp BP Pulse Ox 99.0 F 109 H 20 167/79 H 96 06/19/16 08:19 06/19/16 08:19 06/19/16 08:19 06/19/16 10:54 06/19/16 08:19 Intake and Output: 06/19/16 06/19/16 06:59 18:59 Intake Total 500 Balance 500 - Medications Medications: Current Medications Albuterol/Ipratropium (Duoneb 3 Mg/0.5 Mg (3 Ml) Ud) 3 ml INH RQ6 PRN PRN Reason: Shortness of Breath Calcitriol (Rocaltrol) 0.25 mcg PO DAILY [facility] Last Admin: 06/19/16 09:15 Dose: 0.25 mcg Calcium Acetate (Phoslo) 1,334 mg PO TIDCC [facility] Last Admin: 06/19/16 12:56 Dose: 1,334 mg Fluconazole (Diflucan) 100 mg PO DAILY [facility] Last Admin: 06/19/16 09:15 Dose: 100 mg Furosemide (Lasix) 40 mg IVP DAILY [facility] Last Admin: 06/19/16 10:54 Dose: 40 mg Metronidazole (Flagyl) 100 mls @ 100 mls/hr IVPB Q8H [facility] Last Admin: 06/19/16 09:15 Dose: 100 mls/hr Cefepime HCl (Maxipime Iv 1 Gm Premix) 50 mls @ 100 mls/hr IVPB Q24H [facility] Last Admin: 06/19/16 12:58 Dose: 100 mls/hr Pantoprazole Sodium (Protonix Ec Tab) 40 mg PO DAILY [facility] Last Admin: 06/19/16 09:15 Dose: 40 mg - Labs Labs: 06/19/16 10:48 06/19/16 10:48 PT 17.3 SECONDS (9.7-12.2) H 06/17/16 06:20 INR 1.5 06/17/16 06:20 APTT 28 SECONDS (21-34) 06/17/16 06:20 - Constitutional Appears: Well - Head Exam Head Exam: ATRAUMATIC, NORMAL INSPECTION, NORMOCEPHALIC - Eye Exam Eye Exam: EOMI, Normal appearance, PERRL Pupil Exam: NORMAL ACCOMODATION, PERRL - ENT Exam ENT Exam: Mucous Membranes Moist, Normal Exam - Neck Exam Neck Exam: Full ROM, Normal Inspection. absent: Lymphadenopathy - Respiratory Exam Respiratory Exam: Decreased Breath Sounds - Cardiovascular Exam Cardiovascular Exam: REGULAR RHYTHM, +S1, +S2 - GI/Abdominal Exam GI & Abdominal Exam: Soft, Diminished Bowel Sounds - Rectal Exam Rectal Exam: Deferred
--- NOTE | 2016-06-19 15:16 | CP.PCM.PN ---
Subjective - Date & Time of Evaluation Date of Evaluation: 06/19/16 Time of Evaluation: 08:00 - Subjective Subjective: + PURPURA LOWER AND UPPER EXTREM DR Homar DILLARD AWARE Objective - Vital Signs/Intake and Output Vital Signs (last 24 hours): Temp Pulse Resp BP Pulse Ox 99.0 F 109 H 20 167/79 H 96 06/19/16 08:19 06/19/16 08:19 06/19/16 08:19 06/19/16 10:54 06/19/16 08:19 Intake and Output: 06/19/16 06/19/16 06:59 18:59 Intake Total 500 Balance 500 - Medications Medications: Current Medications Albuterol/Ipratropium (Duoneb 3 Mg/0.5 Mg (3 Ml) Ud) 3 ml INH RQ6 PRN PRN Reason: Shortness of Breath Calcitriol (Rocaltrol) 0.25 mcg PO DAILY [facility] Last Admin: 06/19/16 09:15 Dose: 0.25 mcg Calcium Acetate (Phoslo) 1,334 mg PO TIDCC [facility] Last Admin: 06/19/16 12:56 Dose: 1,334 mg Fluconazole (Diflucan) 100 mg PO DAILY [facility] Last Admin: 06/19/16 09:15 Dose: 100 mg Furosemide (Lasix) 40 mg IVP DAILY [facility] Last Admin: 06/19/16 10:54 Dose: 40 mg Metronidazole (Flagyl) 100 mls @ 100 mls/hr IVPB Q8H [facility] Last Admin: 06/19/16 09:15 Dose: 100 mls/hr Cefepime HCl (Maxipime Iv 1 Gm Premix) 50 mls @ 100 mls/hr IVPB Q24H [facility] Last Admin: 06/19/16 12:58 Dose: 100 mls/hr Pantoprazole Sodium (Protonix Ec Tab) 40 mg PO DAILY [facility] Last Admin: 06/19/16 09:15 Dose: 40 mg - Labs Labs: 06/19/16 10:48 06/19/16 10:48 PT 17.3 SECONDS (9.7-12.2) H 06/17/16 06:20 INR 1.5 06/17/16 06:20 APTT 28 SECONDS (21-34) 06/17/16 06:20 - Constitutional Appears: No Acute Distress, Chronically Ill - Head Exam Head Exam: NORMOCEPHALIC - Eye Exam Eye Exam: Normal appearance. absent: Scleral icterus - ENT Exam ENT Exam: Mucous Membranes Dry - Neck Exam Neck Exam: absent: Lymphadenopathy - Respiratory Exam Respiratory Exam: Decreased Breath Sounds, Clear to Ausculation Bilateral - Cardiovascular Exam Cardiovascular Exam: REGULAR RHYTHM, +S1, +S2 - GI/Abdominal Exam GI & Abdominal Exam: Distended, Soft - Rectal Exam Rectal Exam: Deferred Assessment and Plan (1) Acidosis Status: Acute (2) Acute renal failure Status: Acute (3) Arterial, arteriole and capillary disease Status: Acute (4) CHF (congestive heart failure) Status: Acute (5) Hyponatremia Status: Acute (6) Abdominal pain Status: Acute (7) Acute renal insufficiency Status: Acute (8) Breath shortness Status: Acute (9) Cellulitis and abscess of leg Status: Acute
--- NOTE | 2016-06-19 16:39 | RAD ---
HISTORY: sob COMPARISON: 06/17/2016 FINDINGS: LUNGS: Hazy opacity in the lung bases right greater than left. Focal airspace opacity in the right hilum. PLEURA: Layering pleural effusions bilaterally right greater than left.Biapical pleural parenchymal thickening noted. CARDIOVASCULAR: Enlarged cardiomediastinal silhouette. OSSEOUS STRUCTURES: The osseous structures demonstrate degenerative changes. VISUALIZED UPPER ABDOMEN: Upper abdomen is suboptimally evaluated. OTHER FINDINGS: Right-sided dialysis catheter with the distal tip of the catheter overlying the projection of the SVC/right atrial junction. IMPRESSION: Layering bilateral pleural effusions with associated compressive atelectasis and/ or pneumonia, right greater than left.
[2016-06-19] MEDS: Vitamins A & D Oint UD Foilpak TOP SCH (17:44)
[2016-06-19] MEDS: Albuterol-Ipratrop 3 mg / 0.5 (3 ml) UD INH PRN (17:58)
[2016-06-20] MEDS: Albuterol-Ipratrop 3 mg / 0.5 (3 ml) UD INH PRN ×2 (00:37→07:49)
[2016-06-20] MEDS: metroNIDAZOLE IV 500 mg/100 ml 100 ML IVPB SCH ×3 (02:05→17:32)
[2016-06-20 07:09] LABS: BASO % 0.1 % (0.0-2.0); EOS % 0.1 % (0.0-4.0); LYMPH # 1.4 K/uL (1.0-4.3); LYMPH % 7.5 % (20.0-40.0); MEAN CORPUSCULAR HGB CONC 34.9 g/dL (33.0-37.0); MEAN PLATELET VOLUME 7.5 fL (7.2-11.7); MONO # 0.5 K/uL (0.0-0.8); MONO % 2.5 % (0.0-10.0); PLATELET COUNT 83 K/uL (130-400); RED CELL DISTRIBUTION WIDTH 15.8 % (11.5-14.5); WHITE BLOOD COUNT 18.3 K/uL (4.8-10.8)
[2016-06-20 07:30] LABS: POTASSIUM 4.1 mmol/L (3.6-5.2)
[2016-06-20 07:33] LABS: CALCIUM 7.3 mg/dl (8.6-10.4)
[2016-06-20 10:00] LABS: BILIRUBIN,DIRECT 5.4 mg/dL (0.0-0.4)
[2016-06-20 10:06] LABS: BILIRUBIN,TOTAL 5.9 mg/dL (0.2-1.3)
--- NOTE | 2016-06-20 10:19 | CP.PCM.PN ---
Subjective - Date & Time of Evaluation Date of Evaluation: 06/20/16 Time of Evaluation: 10:16 - Subjective Subjective: Feels much better Starting dialysis again today Less edematous, moire alert Iron stores low- will start EPO. IV Fe Will stop mlasix- oliguric and dialysis will remove fluids Objective - Vital Signs/Intake and Output Vital Signs (last 24 hours): Temp Pulse Resp BP Pulse Ox 99.2 F 91 H 18 148/73 97 06/20/16 08:48 06/20/16 08:48 06/20/16 08:48 06/20/16 08:48 06/20/16 08:48 Intake and Output: 06/20/16 06/20/16 06:59 18:59 Intake Total 150 Balance 150 - Medications Medications: Current Medications Albuterol/Ipratropium (Duoneb 3 Mg/0.5 Mg (3 Ml) Ud) 3 ml INH RQ6 PRN PRN Reason: Shortness of Breath Last Admin: 06/20/16 07:49 Dose: 3 ml Amiodarone HCl (Cordarone) 200 mg PO DAILY [facility] Calcitriol (Rocaltrol) 0.25 mcg PO DAILY [facility] Last Admin: 06/19/16 09:15 Dose: 0.25 mcg Calcium Acetate (Phoslo) 1,334 mg PO TIDCC [facility] Last Admin: 06/20/16 08:06 Dose: 1,334 mg Diltiazem HCl (Cardizem) 30 mg PO Q8H [facility] Last Admin: 06/20/16 04:35 Dose: 30 mg Epoetin Reji (Procrit) 3,000 unit IV TTS [facility] Ferric Sodium Gluconate Complex (Ferrlecit) 125 mg IVPB DAILY [facility] Stop: 06/26/16 10:16 Fluconazole (Diflucan) 100 mg PO DAILY [facility] Last Admin: 06/19/16 09:15 Dose: 100 mg Metronidazole (Flagyl) 100 mls @ 100 mls/hr IVPB Q8H [facility] Last Admin: 06/20/16 02:05 Dose: 100 mls/hr Cefepime HCl (Maxipime Iv 1 Gm Premix) 50 mls @ 100 mls/hr IVPB Q24H [facility] Last Admin: 06/19/16 12:58 Dose: 100 mls/hr Pantoprazole Sodium (Protonix Ec Tab) 40 mg PO DAILY [facility] Last Admin: 06/19/16 09:15 Dose: 40 mg Vitamin A (Vitamin A & D Oint Ud Foilpak) 1 ea TOP DAILY [facility] Last Admin: 06/19/16 17:44 Dose: 1 ea - Labs Labs: 06/20/16 06:46 06/20/16 06:46 PT 17.3 SECONDS (9.7-12.2) H 06/17/16 06:20 INR 1.5 06/17/16 06:20 APTT 28 SECONDS (21-34) 06/17/16 06:20 - Constitutional Appears: No Acute Distress, Chronically Ill - Head Exam Head Exam: ATRAUMATIC, NORMAL INSPECTION - Eye Exam Eye Exam: EOMI, Normal appearance - Neck Exam Neck Exam: Normal Inspection. absent: Tenderness - Respiratory Exam Respiratory Exam: Rhonchi, NORMAL BREATHING PATTERN - Cardiovascular Exam Cardiovascular Exam: REGULAR RHYTHM, +S1 - GI/Abdominal Exam GI & Abdominal Exam: Soft. absent: Tenderness - Extremities Exam Extremities Exam: Pedal Edema, Tenderness - Neurological Exam Neurological Exam: Alert, CN II-XII Intact - Skin Skin Exam: Dry, Warm Assessment and Plan (1) CHF (congestive heart failure) Status: Acute (2) Cellulitis and abscess of leg Status: Acute (3) Hyponatremia Status: Acute (4) CKD stage 5 secondary to hypertension Status: Acute (5) ESRD (end stage renal disease) Status: Acute - Assessment and Plan (Free Text) Plan: Will need AV access- likely in AM Stop lasix Start EPO, IV Fe Needs placement for HD
--- NOTE | 2016-06-20 10:21 | CP.PCM.CON ---
History of Present Illness - History of Present Illness History of Present Illness: Cardiology Consult Note for Dr. Jerome Reason for Consult: Rapid A.fib This is an 86Y F with PMH HTN, HLD, CKD stage V, diverticulitis and arthritis was admitted on 06/15 from the skilled nursing for bilateral lower extremity cellulitis. Since admission, patient had a perma-cath placed in R IJ and had HD due to pulmonary vascular congestion, pleural effusions seen on CXR, acidosis, and increased LE edema. She also has been treated for her cellulitis. It was noted yesterday that patient had a bout of a.fib that was converted with Cardizem 30mg PO. During this time, the patient reports feeling palpitations and some chest pain. She denies having any SOB, dizziness, vision changes. Patient remained in normal sinus the rest of the night. As of this AM, she had another bout of atrial fibrillation. She was given Cardizem 10mg IVP and once again converted back to NSR. Her EKG prior to this event showed incomplete RBBB. As of this AM, patient denies having any CP, SOB, n/v/d, numbness/tingling , palpitations. PMH: HTN, HLD, CKD stage V, diverticulitis and arthritis PSH: Tonsillectomy Home meds: Please refer to MAR All: NKDA SH: Denies EtOH, drug or tobacco use in the past FH: Non-contributory. Review of Systems - Review of Systems Review of Systems: As per HPI Past Patient History - Infectious Disease Hx of Infectious Diseases: None - Past Medical History & Family History Past Medical History?: Yes - Past Social History Smoking Status: Never Smoked - CARDIAC Hx Hypercholesterolemia: Yes Hx Hypertension: Yes - PULMONARY Hx Respiratory Disorders: No - NEUROLOGICAL Hx Neurological Disorder: No - HEENT Hx HEENT Problems: Yes Hx Cataracts: Yes - RENAL Hx Chronic Kidney Disease: No - ENDOCRINE/METABOLIC Hx Endocrine Disorders: No - HEMATOLOGICAL/ONCOLOGICAL Hx Human Immunodeficiency Virus (HIV): No - INTEGUMENTARY Hx Dermatological Problems: Yes Hx Cellulitis: Yes (jaw) - MUSCULOSKELETAL/RHEUMATOLOGICAL Hx Arthritis: Yes - GASTROINTESTINAL Hx Crohn's Disease: No Hx Diverticulitis: Yes (Diverticulosis) Hx Gall Bladder Disease: No Hx Gastritis: Yes Hx Pancreatitis: No - GENITOURINARY/GYNECOLOGICAL Hx Genitourinary Disorders: No Hx Urinary Tract Infection: Yes (as above) - PSYCHIATRIC Hx Substance Use: No - SURGICAL HISTORY Hx Tonsillectomy: Yes (1933) - ANESTHESIA Hx Anesthesia: Yes Hx Anesthesia Reactions: No Hx Malignant Hyperthermia: No Meds Allergies/Adverse Reactions: Allergies Allergy/AdvReac Type Severity Reaction Status Date / Time No Known Allergies Allergy Verified 06/14/16 23:40 - Medications Medications: Current Medications Albuterol/Ipratropium (Duoneb 3 Mg/0.5 Mg (3 Ml) Ud) 3 ml INH RQ6 PRN PRN Reason: Shortness of Breath Last Admin: 06/20/16 07:49 Dose: 3 ml Amiodarone HCl (Cordarone) 200 mg PO DAILY [facility] Calcitriol (Rocaltrol) 0.25 mcg PO DAILY [facility] Last Admin: 06/19/16 09:15 Dose: 0.25 mcg Calcium Acetate (Phoslo) 1,334 mg PO TIDCC [facility] Last Admin: 06/20/16 08:06 Dose: 1,334 mg Diltiazem HCl (Cardizem) 30 mg PO Q8H [facility] Last Admin: 06/20/16 04:35 Dose: 30 mg Epoetin Reji (Procrit) 3,000 unit IV TTS [facility] Ferric Sodium Gluconate Complex (Ferrlecit) 125 mg IVPB DAILY [facility] Stop: 06/26/16 10:16 Fluconazole (Diflucan) 100 mg PO DAILY [facility] Last Admin: 06/19/16 09:15 Dose: 100 mg Metronidazole (Flagyl) 100 mls @ 100 mls/hr IVPB Q8H [facility] Last Admin: 06/20/16 02:05 Dose: 100 mls/hr Cefepime HCl (Maxipime Iv 1 Gm Premix) 50 mls @ 100 mls/hr IVPB Q24H [facility] Last Admin: 06/19/16 12:58 Dose: 100 mls/hr Pantoprazole Sodium (Protonix Ec Tab) 40 mg PO DAILY [facility] Last Admin: 06/19/16 09:15 Dose: 40 mg Vitamin A (Vitamin A & D Oint Ud Foilpak) 1 ea TOP DAILY [facility] Last Admin: 06/19/16 17:44 Dose: 1 ea Physical Exam - Constitutional Appears: No Acute Distress - Head Exam Head Exam: ATRAUMATIC, NORMAL INSPECTION, NORMOCEPHALIC - Eye Exam Eye Exam: Normal appearance Pupil Exam: NORMAL ACCOMODATION - ENT Exam ENT Exam: Mucous Membranes Moist - Neck Exam Neck exam: Positive for: Normal Inspection - Respiratory Exam Respiratory Exam: Clear to Auscultation Bilateral, NORMAL BREATHING PATTERN. absent: Rales, Rhonchi, Wheezes - Cardiovascular Exam Cardiovascular Exam: REGULAR RHYTHM, +S1, +S2. absent: Gallop, Rubs, Systolic Murmur - GI/Abdominal Exam GI & Abdominal Exam: Normal Bowel Sounds, Soft. absent: Rebound, Rigid, Tenderness - Extremities Exam Extremities exam: Positive for: calf tenderness, tenderness Additional comments: bilateral leg edema and redness to both shins/calves - Neurological Exam Neurological exam: Alert, CN II-XII Intact, Oriented x3 - Psychiatric Exam Psychiatric exam: Normal Affect, Normal Mood Results - Vital Signs Recent Vital Signs: Last Vital Signs Temp 99.2 F 06/20/16 08:48 Pulse 91 H 06/20/16 08:48 Resp 18 06/20/16 08:48 BP 148/73 06/20/16 08:48 Pulse Ox 97 06/20/16 08:48 - Labs Result Diagrams: 06/20/16 06:46 06/20/16 06:46 Labs: Laboratory Results - last 24 hr 06/19/16 06/20/16 10:48 06:46 WBC 14.4 H 18.3 H RBC 3.42 L 3.37 L Hgb 10.6 L D 10.5 L Hct 30.7 L 30.0 L MCV 89.6 D 89.0 MCH 30.9 31.0 MCHC 34.5 34.9 RDW 16.3 H 15.8 H Plt Count 111 L 83 L D MPV 7.7 7.5 Neut % (Auto) 88.8 H 89.8 H Lymph % (Auto) 8.1 L 7.5 L Baldwin % (Auto) 2.9 2.5 Eos % (Auto) 0.1 0.1 Baso % (Auto) 0.1 0.1 Neut # 12.8 H 16.4 H Lymph # 1.2 1.4 Baldwin # 0.4 0.5 Eos # 0.0 0.0 Baso # 0.0 0.0 Neutrophils % (Manual) 65 Band Neutrophils % 15 H* Lymphocytes % (Manual) 10 L Reactive Lymphs % 3 H Monocytes % (Manual) 6 Metamyelocytes % 1 H Platelet Estimate Slightly decreased L Poikilocytosis (manual Slight Anisocytosis (manual) Slight Ovalocytes Slight Schistocytes Slight Sodium 134 134 Potassium 3.6 4.1 Chloride 93 L 93 L Carbon Dioxide 29 27 Anion Gap 16 18 BUN 69 H 81 H Creatinine 3.1 H 3.8 H Est GFR ( Amer) 17 14 Est GFR (Non-Af Amer) 14 11 Random Glucose 127 H 105 Calcium 6.7 L 7.3 L Phosphorus 5.1 H Magnesium 1.7 Total Bilirubin 6.0 H AST 123 H D 96 H D ALT 87 H D 79 H Alkaline Phosphatase 676 H D 605 H Total Protein 3.8 L 4.0 L Albumin 1.8 L 2.0 L Globulin 1.9 L 2.0 L Albumin/Globulin Ratio 0.9 L 1.0 Assessment & Plan - Assessment and Plan (Free Text) Assessment: This is an 86Y F with PMH HTN, HLD, CKD stage V, diverticulitis and arthritis found to have 1) Rapid A. fib 2) ESRD- now on HD 3) Bilateral LE cellulitis 4) Transaminitis 5) Chronic Anemia 6) HTN 7) HLD Plan: - A.fib now rhythm controlled - last echo unknown - will order - Continue hemodialysis as per Nephro - Continue Cardizem - Continue to monitor EKG Case seen, reviewed and discussed with attending Bella Henriquez PGY1 - Date & Time Date: 06/20/16 Time: 10:30
--- NOTE | 2016-06-20 10:56 | CP.PCM.PN ---
Subjective - Date & Time of Evaluation Date of Evaluation: 06/20/16 Time of Evaluation: 11:00 - Subjective Subjective: Dr. Smith service, Patient is seen and evaluated in room and also while in Dialysis. She had a run of rapid afib with a rate in the 150s, which was broken with 10mg of Cardizem IVP given. She was also having some labored breathing according to the nursing staff. Her right arm was found to be swollen and her right eye lid was shut. She was unable to open her eye lid on her own. She does not complain of chest pain, congestion, shortness of breath, difficulty breathing. Objective - Vital Signs/Intake and Output Vital Signs (last 24 hours): Temp Pulse Resp BP Pulse Ox 99.2 F 91 H 18 148/73 97 06/20/16 08:48 06/20/16 08:48 06/20/16 08:48 06/20/16 08:48 06/20/16 08:48 Intake and Output: 06/20/16 06/20/16 06:59 18:59 Intake Total 150 Balance 150 - Medications Medications: Current Medications Albuterol/Ipratropium (Duoneb 3 Mg/0.5 Mg (3 Ml) Ud) 3 ml INH RQ6 PRN PRN Reason: Shortness of Breath Last Admin: 06/20/16 07:49 Dose: 3 ml Amiodarone HCl (Cordarone) 200 mg PO DAILY [facility] Calcitriol (Rocaltrol) 0.25 mcg PO DAILY [facility] Last Admin: 06/19/16 09:15 Dose: 0.25 mcg Calcium Acetate (Phoslo) 1,334 mg PO TIDCC [facility] Last Admin: 06/20/16 08:06 Dose: 1,334 mg Diltiazem HCl (Cardizem) 30 mg PO Q8H [facility] Last Admin: 06/20/16 04:35 Dose: 30 mg Epoetin Reji (Procrit) 3,000 unit IV TTS [facility] Ferric Sodium Gluconate Complex (Ferrlecit) 125 mg IVPB DAILY [facility] Stop: 06/26/16 10:16 Fluconazole (Diflucan) 100 mg PO DAILY [facility] Last Admin: 06/19/16 09:15 Dose: 100 mg Metronidazole (Flagyl) 100 mls @ 100 mls/hr IVPB Q8H [facility] Last Admin: 06/20/16 02:05 Dose: 100 mls/hr Cefepime HCl (Maxipime Iv 1 Gm Premix) 50 mls @ 100 mls/hr IVPB Q24H [facility] Last Admin: 06/19/16 12:58 Dose: 100 mls/hr Pantoprazole Sodium (Protonix Ec Tab) 40 mg PO DAILY [facility] Last Admin: 06/19/16 09:15 Dose: 40 mg Vitamin A (Vitamin A & D Oint Ud Foilpak) 1 ea TOP DAILY [facility] Last Admin: 06/19/16 17:44 Dose: 1 ea - Labs Labs: 06/20/16 06:46 06/20/16 06:46 PT 17.3 SECONDS (9.7-12.2) H 06/17/16 06:20 INR 1.5 06/17/16 06:20 APTT 28 SECONDS (21-34) 06/17/16 06:20 - Constitutional Appears: Non-toxic, No Acute Distress, Chronically Ill - Head Exam Head Exam: ATRAUMATIC, NORMAL INSPECTION, NORMOCEPHALIC - Eye Exam Eye Exam: Conjunctival injection, EOMI, Scleral icterus. absent: Normal appearance Pupil Exam: NORMAL ACCOMODATION - Respiratory Exam Respiratory Exam: Clear to Ausculation Bilateral. absent: Rales, Rhonchi, Wheezes - Cardiovascular Exam Cardiovascular Exam: REGULAR RHYTHM, RRR, +S1, +S2. absent: Gallop, Rubs - GI/Abdominal Exam GI & Abdominal Exam: Soft, Normal Bowel Sounds. absent: Tenderness - Extremities Exam Extremities Exam: Normal Inspection - Back Exam Back Exam: NORMAL INSPECTION - Psychiatric Exam Psychiatric exam: Normal Affect, Normal Mood - Skin Skin Exam: Normal Color, Warm Assessment and Plan - Assessment and Plan (Free Text) Assessment: Assessment: Afib: Patient on amioderone and cardizem, Dr. Jerome consulted, patient will need to monititered on tele. Follow up echo. Right arm Swollen Will do US to look for DVT, anitcoaguation options discussed with Dr. Balderas Heme /Onc consult Pleural effusions Pulmonary consult, help appreciated Elevated T. Bili Patient's T. Bili has increased to 6.0 in the past 2 days, have ordered for abdominal US which showed cholilithiasis and fatty liver, have also consulted Dr. Oropeza, help appreciated. Follow up GGT and indirect Bili Thromboytyopenia Have consulted Dr. Balderas, will look for heparin induced thrombocytopenia. ESRD 06/20 Patient is go for AV fistula with Dr. Fran rodriguez. ight IJ permacath placed on 06/18/16 F/U Creatinine Nephro consult - Dr. Almanzar - help appreciated Anemia 2 units pRBCs on 06/18/16 F/U CBC Lower extremity cellulitis 06/20: Cefepime for 4 days, Flagyl for 5 days, Diflucan for 3 days, will need to consult with Dr. Talley to see if any of these drugs are causeing her increase in T. Bili, LFTs, and alk phos. previous note Cefepime 1gm IVPB Q24H started 06/16/16 Flagyl 500mg IVPB Q8 started 06/15/16 Diflucan 100mg PO daily started 06/17/16 ID consult - Dr. Talley - help appreciated Elevated PTH Calcitriol 0.25mcg PO daily Phoslo 1334mg PO TIDCC Dysphagia 06/10: Pureed diet F/U swallow eval Asthma Duoneb RQ6 PRN SOB Prophylaxis 06/20:continue current management Protonix 40mg PO daily Holding heparin secondary to possible drug induced thrombocytopenia
[2016-06-20 11:17] LABS: EOSINOPHIL 1 % (0-4); NEUTROPHIL 88 % (50-75); TOTAL CELLS COUNTED 100
--- NOTE | 2016-06-20 12:40 | CP.PCM.PN ---
Subjective - Date & Time of Evaluation Date of Evaluation: 06/20/16 Time of Evaluation: 12:39 - Subjective Subjective: will plan accessf or 06/21 will recheck plat count etc Objective - Vital Signs/Intake and Output Vital Signs (last 24 hours): Temp Pulse Resp BP Pulse Ox 98.5 F 77 25 H 131/70 97 06/20/16 10:15 06/20/16 10:15 06/20/16 10:15 06/20/16 11:00 06/20/16 10:15 Intake and Output: 06/20/16 06/20/16 06:59 18:59 Intake Total 150 Balance 150 - Medications Medications: Current Medications Albuterol/Ipratropium (Duoneb 3 Mg/0.5 Mg (3 Ml) Ud) 3 ml INH RQ6 PRN PRN Reason: Shortness of Breath Last Admin: 06/20/16 07:49 Dose: 3 ml Amiodarone HCl (Cordarone) 200 mg PO DAILY [facility] Calcitriol (Rocaltrol) 0.25 mcg PO DAILY [facility] Last Admin: 06/19/16 09:15 Dose: 0.25 mcg Calcium Acetate (Phoslo) 1,334 mg PO TIDCC [facility] Last Admin: 06/20/16 08:06 Dose: 1,334 mg Diltiazem HCl (Cardizem) 30 mg PO Q8H [facility] Last Admin: 06/20/16 04:35 Dose: 30 mg Epoetin Reji (Procrit) 3,000 unit IV TTS [facility] Ferric Sodium Gluconate Complex (Ferrlecit) 125 mg IVPB DAILY [facility] Stop: 06/26/16 10:16 Fluconazole (Diflucan) 100 mg PO DAILY [facility] Last Admin: 06/19/16 09:15 Dose: 100 mg Metronidazole (Flagyl) 100 mls @ 100 mls/hr IVPB Q8H [facility] Last Admin: 06/20/16 02:05 Dose: 100 mls/hr Cefepime HCl (Maxipime Iv 1 Gm Premix) 50 mls @ 100 mls/hr IVPB Q24H [facility] Last Admin: 06/19/16 12:58 Dose: 100 mls/hr Pantoprazole Sodium (Protonix Ec Tab) 40 mg PO DAILY [facility] Last Admin: 06/19/16 09:15 Dose: 40 mg Vitamin A (Vitamin A & D Oint Ud Foilpak) 1 ea TOP DAILY [facility] Last Admin: 06/19/16 17:44 Dose: 1 ea - Labs Labs: 06/20/16 06:46 06/20/16 06:46 PT 17.3 SECONDS (9.7-12.2) H 06/17/16 06:20 INR 1.5 06/17/16 06:20 APTT 28 SECONDS (21-34) 06/17/16 06:20
[2016-06-20] MEDS ORDERED: Epoetin Alfa 3000 UNIT/ML Inj IV SCH (13:30)
[2016-06-20] MEDS: Ferric Sodium Gluconat Complex 62.5 mg/5 ml Vial IVPB SCH (13:37)
[2016-06-20] MEDS: Epoetin Alfa Dialysis 3000 UNIT/ML Inj IV SCH (13:49)
--- NOTE | 2016-06-20 15:20 | US ---
HISTORY: elevated T. Bili COMPARISON: CT abdomen and pelvis without IV contrast performed 05/23/16 TECHNIQUE: Sonographic evaluation of the abdomen. FINDINGS: LIVER: Measures 15.8 cm in sagittal dimension. Echogenic liver may be seen in setting of hepatic parenchymal disease or fatty infiltration. No focal hepatic mass identified. The main portal vein appears patent with normal directional flow. GALLBLADDER: Gallstones. No gallbladder wall thickening. Negative sonographic Cam's sign as assessed by the factory maintenance technician. COMMON BILE DUCT: Measures 5 mm. Minimal intrahepatic biliary ductal dilatation. PANCREAS: Not well visualized. RIGHT KIDNEY: Measures 11.5 x 4.6 x 4.5 cm. 3.8 x 3.5 x 3.7 cm upper pole renal cyst. No evidence of hydronephrosis or obstructing calculus. LEFT KIDNEY: Measures 10.5 x 5.2 x 4.8 cm. 1.7 x 1.2 x 1.6 cm left upper pole cyst. No obstructing calculus or hydronephrosis identified. SPLEEN: Measures approximately 9.1 cm. AORTA: Limited views appear unremarkable. IVC: Limited views appear unremarkable. OTHER FINDINGS: Incidental note is made of bilateral pleural effusions. IMPRESSION: Echogenic liver may be seen in setting of hepatic parenchymal disease or fatty infiltration. Cholelithiasis. Mild intrahepatic biliary ductal dilatation. Bilateral renal cysts. Bilateral pleural effusions.
[2016-06-20] MEDS: Pantoprazole 40 mg EC Tab PO SCH (15:45)
[2016-06-20] MEDS: Cefepime IV 1 gm in Dextrose 50 ML IVPB SCH (15:45)
[2016-06-20] MEDS: Vitamins A & D Oint UD Foilpak TOP SCH ×2 (15:46→16:08)
--- NOTE | 2016-06-20 16:05 | CARD ---
APPROVED REPORT EKG Measurement Heart [id number] <Conclusion> Atrial fibrillation with rapid ventricular response Incomplete right bundle branch block Nonspecific ST abnormality, probably digitalis effect Abnormal ECG
--- NOTE | 2016-06-20 16:25 | CP.PCM.PN ---
Subjective - Date & Time of Evaluation Date of Evaluation: 06/20/16 Time of Evaluation: 10:20 - Subjective Subjective: clinically same Objective - Vital Signs/Intake and Output Vital Signs (last 24 hours): Temp Pulse Resp BP Pulse Ox 98.6 F 82 24 139/65 98 06/20/16 13:15 06/20/16 13:15 06/20/16 13:15 06/20/16 13:15 06/20/16 13:15 Intake and Output: 06/20/16 06/20/16 06:59 18:59 Intake Total 150 Balance 150 - Medications Medications: Current Medications Albuterol/Ipratropium (Duoneb 3 Mg/0.5 Mg (3 Ml) Ud) 3 ml INH RQ6 PRN PRN Reason: Shortness of Breath Last Admin: 06/20/16 07:49 Dose: 3 ml Amiodarone HCl (Cordarone) 200 mg PO DAILY [facility] Artificial Tears (Artificial Tears) 1 ml OD DAILY [facility] Calcitriol (Rocaltrol) 0.25 mcg PO DAILY [facility] Last Admin: 06/20/16 15:45 Dose: Not Given Calcium Acetate (Phoslo) 1,334 mg PO TIDCC [facility] Last Admin: 06/20/16 15:45 Dose: Not Given Diltiazem HCl (Cardizem) 30 mg PO Q8H [facility] Last Admin: 06/20/16 15:44 Dose: Not Given Epoetin Reji (Procrit) 3,000 unit IV TTS [facility] Last Admin: 06/20/16 13:49 Dose: 3,000 unit Ferric Sodium Gluconate Complex (Ferrlecit) 125 mg IVPB DAILY [facility] Stop: 06/26/16 10:16 Last Admin: 06/20/16 13:37 Dose: 125 mg Fluconazole (Diflucan) 100 mg PO DAILY [facility] Last Admin: 06/20/16 15:44 Dose: Not Given Metronidazole (Flagyl) 100 mls @ 100 mls/hr IVPB Q8H [facility] Last Admin: 06/20/16 15:45 Dose: Not Given Cefepime HCl (Maxipime Iv 1 Gm Premix) 50 mls @ 100 mls/hr IVPB Q24H [facility] Last Admin: 06/20/16 15:45 Dose: Not Given Pantoprazole Sodium (Protonix Ec Tab) 40 mg PO DAILY [facility] Last Admin: 06/20/16 15:45 Dose: Not Given Vitamin A (Vitamin A & D Oint Ud Foilpak) 1 ea TOP DAILY [facility] Last Admin: 06/20/16 16:08 Dose: 1 ea - Labs Labs: 06/20/16 06:46 06/20/16 06:46 PT 17.3 SECONDS (9.7-12.2) H 06/17/16 06:20 INR 1.5 06/17/16 06:20 APTT 28 SECONDS (21-34) 06/17/16 06:20 - Constitutional Appears: Well - Head Exam Head Exam: ATRAUMATIC, NORMAL INSPECTION, NORMOCEPHALIC - Eye Exam Eye Exam: EOMI, Normal appearance, PERRL Pupil Exam: NORMAL ACCOMODATION, PERRL - ENT Exam ENT Exam: Mucous Membranes Moist, Normal Exam - Neck Exam Neck Exam: Full ROM, Normal Inspection. absent: Lymphadenopathy - Respiratory Exam Respiratory Exam: Decreased Breath Sounds - Cardiovascular Exam Cardiovascular Exam: REGULAR RHYTHM, +S1, +S2 - GI/Abdominal Exam GI & Abdominal Exam: Soft, Diminished Bowel Sounds - Rectal Exam Rectal Exam: Deferred
--- NOTE | 2016-06-20 17:19 | CP.PCM.CON ---
History of Present Illness - History of Present Illness History of Present Illness: 86 year old female with a history of HTN, HL, admitted with sepsis, lower extremity cellulitis, afib, and renal failure with progressive thrombocytopenia. The patient is fatigued and is unable to give further history. Per her children, she has been having more difficulty at the [place] in the last few weeks. She was on a heparin drip for afib but platelets were declining and heparin has been D/C'd. The patient has right UE swelling and venous duplex is pending to evaluate for DVT. The patient has scattered ecchymosis over her extremities. Past medical, surgical, family, social history cannot be obtained from the patient Allergies: Per documentation NKA Review of systems cannot be obtained from the patient Past Patient History - Infectious Disease Hx of Infectious Diseases: None - Past Medical History & Family History Past Medical History?: Yes - Past Social History Smoking Status: Never Smoked - CARDIAC Hx Hypercholesterolemia: Yes Hx Hypertension: Yes - PULMONARY Hx Respiratory Disorders: No - NEUROLOGICAL Hx Neurological Disorder: No - HEENT Hx HEENT Problems: Yes Hx Cataracts: Yes - RENAL Hx Chronic Kidney Disease: No - ENDOCRINE/METABOLIC Hx Endocrine Disorders: No - HEMATOLOGICAL/ONCOLOGICAL Hx Human Immunodeficiency Virus (HIV): No - INTEGUMENTARY Hx Dermatological Problems: Yes Hx Cellulitis: Yes (jaw) - MUSCULOSKELETAL/RHEUMATOLOGICAL Hx Arthritis: Yes - GASTROINTESTINAL Hx Crohn's Disease: No Hx Diverticulitis: Yes (Diverticulosis) Hx Gall Bladder Disease: No Hx Gastritis: Yes Hx Pancreatitis: No - GENITOURINARY/GYNECOLOGICAL Hx Genitourinary Disorders: No Hx Urinary Tract Infection: Yes (as above) - PSYCHIATRIC Hx Substance Use: No - SURGICAL HISTORY Hx Tonsillectomy: Yes (1933) - ANESTHESIA Hx Anesthesia: Yes Hx Anesthesia Reactions: No Hx Malignant Hyperthermia: No Meds Allergies/Adverse Reactions: Allergies Allergy/AdvReac Type Severity Reaction Status Date / Time No Known Allergies Allergy Verified 06/14/16 23:40 - Medications Medications: Current Medications Albuterol/Ipratropium (Duoneb 3 Mg/0.5 Mg (3 Ml) Ud) 3 ml INH RQ6 PRN PRN Reason: Shortness of Breath Last Admin: 06/20/16 07:49 Dose: 3 ml Amiodarone HCl (Cordarone) 200 mg PO DAILY [facility] Artificial Tears (Artificial Tears) 1 ml OD DAILY [facility] Calcitriol (Rocaltrol) 0.25 mcg PO DAILY [facility] Last Admin: 06/20/16 15:45 Dose: Not Given Calcium Acetate (Phoslo) 1,334 mg PO TIDCC [facility] Last Admin: 06/20/16 15:45 Dose: Not Given Diltiazem HCl (Cardizem) 30 mg PO Q8H [facility] Last Admin: 06/20/16 15:44 Dose: Not Given Epoetin Reji (Procrit) 3,000 unit IV TTS [facility] Last Admin: 06/20/16 13:49 Dose: 3,000 unit Ferric Sodium Gluconate Complex (Ferrlecit) 125 mg IVPB DAILY [facility] Stop: 06/26/16 10:16 Last Admin: 06/20/16 13:37 Dose: 125 mg Fluconazole (Diflucan) 100 mg PO DAILY [facility] Last Admin: 06/20/16 15:44 Dose: Not Given Metronidazole (Flagyl) 100 mls @ 100 mls/hr IVPB Q8H [facility] Last Admin: 06/20/16 15:45 Dose: Not Given Cefepime HCl (Maxipime Iv 1 Gm Premix) 50 mls @ 100 mls/hr IVPB Q24H [facility] Last Admin: 06/20/16 15:45 Dose: Not Given Pantoprazole Sodium (Protonix Ec Tab) 40 mg PO DAILY [facility] Last Admin: 06/20/16 15:45 Dose: Not Given Vitamin A (Vitamin A & D Oint Ud Foilpak) 1 ea TOP DAILY [facility] Last Admin: 06/20/16 16:08 Dose: 1 ea Physical Exam - Head Exam Head Exam: ATRAUMATIC - ENT Exam ENT Exam: Mucous Membranes Dry - Respiratory Exam Respiratory Exam: Decreased Breath Sounds, NORMAL BREATHING PATTERN - Cardiovascular Exam Cardiovascular Exam: +S1, +S2 - GI/Abdominal Exam GI & Abdominal Exam: Normal Bowel Sounds - Extremities Exam Extremities exam: Positive for: pedal edema - Neurological Exam Neurological exam: Altered - Psychiatric Exam Psychiatric exam: Depressed - Skin Skin Exam: Petechiae Results - Vital Signs Recent Vital Signs: Last Vital Signs Temp 98.6 F 06/20/16 13:15 Pulse 82 06/20/16 13:15 Resp 24 06/20/16 13:15 BP 139/65 06/20/16 13:15 Pulse Ox 98 06/20/16 13:15 - Labs Result Diagrams: 06/20/16 06:46 06/20/16 06:46 Labs: Laboratory Results - last 24 hr 06/20/16 06:46 WBC 18.3 H RBC 3.37 L Hgb 10.5 L Hct 30.0 L MCV 89.0 MCH 31.0 MCHC 34.9 RDW 15.8 H Plt Count 83 L D MPV 7.5 Neut % (Auto) 89.8 H Lymph % (Auto) 7.5 L [place] % (Auto) 2.5 Eos % (Auto) 0.1 Baso % (Auto) 0.1 Neut # 16.4 H Lymph # 1.4 [place] # 0.5 Eos # 0.0 Baso # 0.0 Neutrophils % (Manual) 88 H Band Neutrophils % 8 H Lymphocytes % (Manual) 3 L Monocytes % (Manual) TEST NOT PERFORMED Eosinophils % (Manual) 1 Platelet Estimate Decreased L Polychromasia Slight Hypochromasia (manual) Slight Anisocytosis (manual) Slight Tear Drop Cells Slight Ovalocytes Slight [place] Cells Slight Schistocytes Slight Sodium 134 Potassium 4.1 Chloride 93 L Carbon Dioxide 27 Anion Gap 18 BUN 81 H Creatinine 3.8 H Est GFR ( Amer) 14 Est GFR (Non-Af Amer) 11 Random Glucose 105 Calcium 7.3 L Total Bilirubin 5.9 H Direct Bilirubin 5.4 H AST 96 H D ALT 79 H Alkaline Phosphatase 605 H Total Protein 4.0 L Albumin 2.0 L Globulin 2.0 L Albumin/Globulin Ratio 1.0 Assessment & Plan (1) Thrombocytopenia Assessment and Plan: rule out DIC; check fibrinogen agree with holding heparin for now; heparin Ab and serotonin release assay sent ; if anticoaugulation is needed, can use fondaparinox or argatroban for now platelet dysfunction given uremia may have element of thrombocytopenia from sepsis will review peripheral smear Status: Acute (2) Leukocytosis Assessment and Plan: on antibiotics Status: Acute (3) Coagulopathy Assessment and Plan: rule out DIC; check fibrinogen s/p anticoagulation element of nutritional coagulopathy Status: Acute (4) Anemia Assessment and Plan: will check ferritin, retic count, b12, folate, FOBT to further characterize anemia of chronic disease and CKD Thank you for this interesting consult. Status: Acute
[2016-06-20] MEDS: Aritificial Tears (15ml) OD SCH (18:03)
--- NOTE | 2016-06-20 18:19 | CP.PCM.PN ---
Subjective - Date & Time of Evaluation Date of Evaluation: 06/20/16 Time of Evaluation: 09:00 - Subjective Subjective: events noted for IV access 06/21 Objective - Vital Signs/Intake and Output Vital Signs (last 24 hours): Temp Pulse Resp BP Pulse Ox 98.2 F 94 H 18 120/65 96 06/20/16 15:10 06/20/16 15:10 06/20/16 15:10 06/20/16 15:10 06/20/16 15:10 Intake and Output: 06/20/16 06/20/16 06:59 18:59 Intake Total 150 Balance 150 - Medications Medications: Current Medications Albuterol/Ipratropium (Duoneb 3 Mg/0.5 Mg (3 Ml) Ud) 3 ml INH RQ6 PRN PRN Reason: Shortness of Breath Last Admin: 06/20/16 07:49 Dose: 3 ml Amiodarone HCl (Cordarone) 200 mg PO DAILY [facility] Artificial Tears (Artificial Tears) 1 ml OD DAILY [facility] Last Admin: 06/20/16 18:03 Dose: 1 drop Calcitriol (Rocaltrol) 0.25 mcg PO DAILY [facility] Last Admin: 06/20/16 15:45 Dose: Not Given Calcium Acetate (Phoslo) 1,334 mg PO TIDCC [facility] Last Admin: 06/20/16 17:31 Dose: 1,334 mg Diltiazem HCl (Cardizem) 30 mg PO Q8H [facility] Last Admin: 06/20/16 15:44 Dose: Not Given Epoetin Reji (Procrit) 3,000 unit IV TTS [facility] Last Admin: 06/20/16 13:49 Dose: 3,000 unit Ferric Sodium Gluconate Complex (Ferrlecit) 125 mg IVPB DAILY [facility] Stop: 06/26/16 10:16 Last Admin: 06/20/16 13:37 Dose: 125 mg Fluconazole (Diflucan) 100 mg PO DAILY [facility] Last Admin: 06/20/16 15:44 Dose: Not Given Metronidazole (Flagyl) 100 mls @ 100 mls/hr IVPB Q8H [facility] Last Admin: 06/20/16 17:32 Dose: 100 mls/hr Cefepime HCl (Maxipime Iv 1 Gm Premix) 50 mls @ 100 mls/hr IVPB Q24H [facility] Last Admin: 06/20/16 15:45 Dose: Not Given Vancomycin HCl 1 gm/ Sodium (Chloride) 250 mls @ 166.7 mls/hr IVPB STAT [facility] Stop: 06/20/16 19:46 Pantoprazole Sodium (Protonix Ec Tab) 40 mg PO DAILY [facility] Last Admin: 06/20/16 15:45 Dose: Not Given Vitamin A (Vitamin A & D Oint Ud Foilpak) 1 ea TOP DAILY [facility] Last Admin: 06/20/16 16:08 Dose: 1 ea - Labs Labs: 06/20/16 06:46 06/20/16 06:46 PT 17.3 SECONDS (9.7-12.2) H 06/17/16 06:20 INR 1.5 06/17/16 06:20 APTT 28 SECONDS (21-34) 06/17/16 06:20 - Constitutional Appears: Non-toxic, Chronically Ill - Head Exam Head Exam: NORMOCEPHALIC - Eye Exam Eye Exam: PERRL. absent: Scleral icterus - ENT Exam ENT Exam: Mucous Membranes Dry - Neck Exam Neck Exam: absent: Lymphadenopathy - Respiratory Exam Respiratory Exam: Decreased Breath Sounds, Rhonchi - Cardiovascular Exam Cardiovascular Exam: REGULAR RHYTHM, +S1, +S2 - GI/Abdominal Exam GI & Abdominal Exam: Distended, Soft - Rectal Exam Rectal Exam: Deferred - Exam Exam: NORMAL INSPECTION Assessment and Plan (1) Acidosis Status: Acute (2) Acute renal failure Status: Acute (3) Arterial, arteriole and capillary disease Status: Acute (4) CHF (congestive heart failure) Status: Acute (5) Hyponatremia Status: Acute (6) Abdominal pain Status: Acute (7) Acute renal insufficiency Status: Acute (8) Breath shortness Status: Acute (9) Cellulitis and abscess of leg Status: Acute
[2016-06-20] MEDS ORDERED: Vancomycin 1 gm/NS 200 ml 200 ML IVPB ONE (19:00)
--- NOTE | 2016-06-20 19:45 | CP.PCM.CON ---
History of Present Illness - History of Present Illness History of Present Illness: readmitted with cellulitis sepsis, renal failure has fluid overload with bilat pleural effusions and chest congestion Review of Systems - Review of Systems Systems not reviewed;Unavailable: Altered Mental Status Past Patient History - Infectious Disease Hx of Infectious Diseases: None - Past Medical History & Family History Past Medical History?: Yes - Past Social History Smoking Status: Never Smoked - CARDIAC Hx Hypercholesterolemia: Yes Hx Hypertension: Yes - PULMONARY Hx Respiratory Disorders: No - NEUROLOGICAL Hx Neurological Disorder: No - HEENT Hx HEENT Problems: Yes Hx Cataracts: Yes - RENAL Hx Chronic Kidney Disease: No - ENDOCRINE/METABOLIC Hx Endocrine Disorders: No - HEMATOLOGICAL/ONCOLOGICAL Hx Human Immunodeficiency Virus (HIV): No - INTEGUMENTARY Hx Dermatological Problems: Yes Hx Cellulitis: Yes (jaw) - MUSCULOSKELETAL/RHEUMATOLOGICAL Hx Arthritis: Yes - GASTROINTESTINAL Hx Crohn's Disease: No Hx Diverticulitis: Yes (Diverticulosis) Hx Gall Bladder Disease: No Hx Gastritis: Yes Hx Pancreatitis: No - GENITOURINARY/GYNECOLOGICAL Hx Genitourinary Disorders: No Hx Urinary Tract Infection: Yes (as above) - PSYCHIATRIC Hx Substance Use: No - SURGICAL HISTORY Hx Tonsillectomy: Yes (1933) - ANESTHESIA Hx Anesthesia: Yes Hx Anesthesia Reactions: No Hx Malignant Hyperthermia: No Meds Allergies/Adverse Reactions: Allergies Allergy/AdvReac Type Severity Reaction Status Date / Time No Known Allergies Allergy Verified 06/14/16 23:40 - Medications Medications: Current Medications Albuterol/Ipratropium (Duoneb 3 Mg/0.5 Mg (3 Ml) Ud) 3 ml INH RQ6 PRN PRN Reason: Shortness of Breath Last Admin: 06/20/16 07:49 Dose: 3 ml Amiodarone HCl (Cordarone) 200 mg PO DAILY [facility] Artificial Tears (Artificial Tears) 1 ml OD DAILY [facility] Last Admin: 06/20/16 18:03 Dose: 1 drop Budesonide (Pulmicort Respules) 0.5 mg INH RQ12 [facility] Calcitriol (Rocaltrol) 0.25 mcg PO DAILY [facility] Last Admin: 06/20/16 15:45 Dose: Not Given Calcium Acetate (Phoslo) 1,334 mg PO TIDCC [facility] Last Admin: 06/20/16 17:31 Dose: 1,334 mg Diltiazem HCl (Cardizem) 30 mg PO Q8H [facility] Last Admin: 06/20/16 15:44 Dose: Not Given Epoetin Reji (Procrit) 3,000 unit IV TTS [facility] Last Admin: 06/20/16 13:49 Dose: 3,000 unit Ferric Sodium Gluconate Complex (Ferrlecit) 125 mg IVPB DAILY [facility] Stop: 06/26/16 10:16 Last Admin: 06/20/16 13:37 Dose: 125 mg Fluconazole (Diflucan) 100 mg PO DAILY [facility] Last Admin: 06/20/16 15:44 Dose: Not Given Metronidazole (Flagyl) 100 mls @ 100 mls/hr IVPB Q8H [facility] Last Admin: 06/20/16 17:32 Dose: 100 mls/hr Cefepime HCl (Maxipime Iv 1 Gm Premix) 50 mls @ 100 mls/hr IVPB Q24H [facility] Last Admin: 06/20/16 15:45 Dose: Not Given Vancomycin/Sodium Chloride (Vancocin) 200 mls @ 166.7 mls/hr IVPB ONCE ONE Stop: 06/20/16 20:11 Pantoprazole Sodium (Protonix Ec Tab) 40 mg PO DAILY [facility] Last Admin: 06/20/16 15:45 Dose: Not Given Tobramycin/Dexamethasone (Tobradex 0.3%-0.1% Opht Oint) 0 appl OU Q6 [facility] Vitamin A (Vitamin A & D Oint Ud Foilpak) 1 ea TOP DAILY [facility] Last Admin: 06/20/16 16:08 Dose: 1 ea Physical Exam - Constitutional Appears: Chronically Ill - Head Exam Head Exam: ATRAUMATIC, NORMOCEPHALIC - Eye Exam Eye Exam: Conjunctival injection - ENT Exam ENT Exam: Mucous Membranes Moist - Respiratory Exam Respiratory Exam: Decreased Breath Sounds, Rhonchi - Cardiovascular Exam Cardiovascular Exam: +S1, +S2 - GI/Abdominal Exam GI & Abdominal Exam: Diminished Bowel Sounds - Rectal Exam Rectal Exam: Deferred - Psychiatric Exam Psychiatric exam: Flat Affect - Skin Skin Exam: Intact Results - Vital Signs Recent Vital Signs: Last Vital Signs Temp 98.2 F 06/20/16 15:10 Pulse 94 H 06/20/16 15:10 Resp 18 06/20/16 15:10 BP 120/65 06/20/16 15:10 Pulse Ox 96 06/20/16 15:10 - Labs Result Diagrams: 06/20/16 06:46 06/20/16 06:46 Labs: Laboratory Results - last 24 hr 06/20/16 06/20/16 06:46 18:13 WBC 18.3 H RBC 3.37 L Hgb 10.5 L Hct 30.0 L MCV 89.0 MCH 31.0 MCHC 34.9 RDW 15.8 H Plt Count 83 L D MPV 7.5 Neut % (Auto) 89.8 H Lymph % (Auto) 7.5 L [place] % (Auto) 2.5 Eos % (Auto) 0.1 Baso % (Auto) 0.1 Neut # 16.4 H Lymph # 1.4 [place] # 0.5 Eos # 0.0 Baso # 0.0 Neutrophils % (Manual) 88 H Band Neutrophils % 8 H Lymphocytes % (Manual) 3 L Monocytes % (Manual) TEST NOT PERFORMED Eosinophils % (Manual) 1 Platelet Estimate Decreased L Polychromasia Slight Hypochromasia (manual) Slight Anisocytosis (manual) Slight Tear Drop Cells Slight Ovalocytes Slight [place] Cells Slight Schistocytes Slight Fibrinogen 331 Sodium 134 Potassium 4.1 Chloride 93 L Carbon Dioxide 27 Anion Gap 18 BUN 81 H Creatinine 3.8 H Est GFR ( Amer) 14 Est GFR (Non-Af Amer) 11 Random Glucose 105 Calcium 7.3 L Total Bilirubin 5.9 H Direct Bilirubin 5.4 H AST 96 H D ALT 79 H Alkaline Phosphatase 605 H Total Protein 4.0 L Albumin 2.0 L Globulin 2.0 L Albumin/Globulin Ratio 1.0 Assessment & Plan (1) CHF (congestive heart failure) Status: Acute (2) Pleural effusion Status: Acute (3) ESRD (end stage renal disease) Status: Suspected (4) Acute renal failure Status: Acute (5) Cellulitis and abscess of leg Status: Acute (6) Fluid overload Status: Acute
[2016-06-20] MEDS: Budesonide 0.5 mg/2 ml Inhal Susp UD INH SCH (19:47)
[2016-06-20] MEDS: Albuterol-Ipratrop 3 mg / 0.5 (3 ml) UD INH SCH (20:03)
[2016-06-21] MEDS: Albuterol-Ipratrop 3 mg / 0.5 (3 ml) UD INH SCH ×4 (01:13→20:52)
[2016-06-21] MEDS: Tobramycin/Dexamethasone OPHT OINT OU SCH ×4 (01:36→19:00)
[2016-06-21] MEDS: metroNIDAZOLE IV 500 mg/100 ml 100 ML IVPB SCH ×3 (01:41→18:19)
[2016-06-21 06:59] LABS: CHLORIDE 95 mmol/L (98-107); SODIUM 136 mmol/L (132-148)
[2016-06-21 07:01] LABS: CARBON DIOXIDE 30 mmol/L (22-30); GFR AFRICAN-AMERICAN 16
[2016-06-21 07:02] LABS: ALKALINE PHOSPHATASE 505 U/L (38-126); ALT/SGPT 64 U/L (9-52); AST/SGOT 47 U/L (14-36); BILIRUBIN,DIRECT 1.8 mg/dL (0.0-0.4); BILIRUBIN,TOTAL 2.1 mg/dL (0.2-1.3); BLOOD UREA NITROGEN 54 mg/dL (7-17); GLUCOSE,RANDOM 82 mg/dL (65-105); TOTAL PROTEIN 3.7 g/dL (6.3-8.3)
[2016-06-21 07:05] LABS: ALB/GLOB RATIO 1.1 (1.0-2.1)
[2016-06-21 07:22] LABS: INR 2.8
[2016-06-21 07:32] LABS: BASO # 0.1 K/uL (0.0-0.2); BASO % 0.3 % (0.0-2.0); EOS # 0.1 K/uL (0.0-0.7); EOS % 0.7 % (0.0-4.0); LYMPH # 1.3 K/uL (1.0-4.3); LYMPH % 8.7 % (20.0-40.0); MEAN CELL VOLUME 90.5 fL (81.0-99.0); MEAN CORPUSCULAR HGB CONC 33.2 g/dL (33.0-37.0); MEAN PLATELET VOLUME 9.2 fL (7.2-11.7); MONO # 0.4 K/uL (0.0-0.8); MONO % 2.4 % (0.0-10.0); RED CELL DISTRIBUTION WIDTH 16.2 % (11.5-14.5); WHITE BLOOD COUNT 15.1 K/uL (4.8-10.8)
[2016-06-21 07:38] LABS: PLATELET COUNT 36 K/uL (130-400)
--- NOTE | 2016-06-21 07:44 | CP.PCM.PN ---
Subjective - Date & Time of Evaluation Date of Evaluation: 06/21/16 Time of Evaluation: 07:43 - Subjective Subjective: plt count low will defer aavf until ~100K Objective - Vital Signs/Intake and Output Vital Signs (last 24 hours): Temp Pulse Resp BP Pulse Ox 100.5 F H 96 H 20 133/64 96 06/20/16 23:35 06/20/16 23:40 06/20/16 23:35 06/20/16 23:35 06/20/16 23:35 - Medications Medications: Current Medications Albuterol/Ipratropium (Duoneb 3 Mg/0.5 Mg (3 Ml) Ud) 3 ml INH RQ6 [facility] Last Admin: 06/21/16 01:13 Dose: 3 ml Amiodarone HCl (Cordarone) 200 mg PO DAILY [facility] Artificial Tears (Artificial Tears) 1 ml OD DAILY [facility] Last Admin: 06/20/16 18:03 Dose: 1 drop Budesonide (Pulmicort Respules) 0.5 mg INH RQ12 [facility] Last Admin: 06/20/16 19:47 Dose: Not Given Calcitriol (Rocaltrol) 0.25 mcg PO DAILY [facility] Last Admin: 06/20/16 15:45 Dose: Not Given Calcium Acetate (Phoslo) 1,334 mg PO TIDCC [facility] Last Admin: 06/20/16 17:31 Dose: 1,334 mg Diltiazem HCl (Cardizem) 30 mg PO Q8H [facility] Last Admin: 06/21/16 04:48 Dose: 30 mg Epoetin Reji (Procrit) 3,000 unit IV TTS [facility] Last Admin: 06/20/16 13:49 Dose: 3,000 unit Ferric Sodium Gluconate Complex (Ferrlecit) 125 mg IVPB DAILY [facility] Stop: 06/26/16 10:16 Last Admin: 06/20/16 13:37 Dose: 125 mg Fluconazole (Diflucan) 100 mg PO DAILY [facility] Last Admin: 06/20/16 15:44 Dose: Not Given Metronidazole (Flagyl) 100 mls @ 100 mls/hr IVPB Q8H [facility] Last Admin: 06/21/16 01:41 Dose: 100 mls/hr Cefepime HCl (Maxipime Iv 1 Gm Premix) 50 mls @ 100 mls/hr IVPB Q24H [facility] Last Admin: 06/20/16 15:45 Dose: Not Given Pantoprazole Sodium (Protonix Ec Tab) 40 mg PO DAILY [facility] Last Admin: 06/20/16 15:45 Dose: Not Given Tobramycin/Dexamethasone (Tobradex 0.3%-0.1% Opht Oint) 0 appl OU Q6 [facility] Last Admin: 06/21/16 06:12 Dose: 0.3 % Vitamin A (Vitamin A & D Oint Ud Foilpak) 1 ea TOP DAILY [facility] Last Admin: 06/20/16 16:08 Dose: 1 ea - Labs Labs: 06/21/16 06:40 06/21/16 06:40 PT 32.4 SECONDS (9.7-12.2) H* 06/21/16 06:40 INR 2.8 06/21/16 06:40 APTT 37 SECONDS (21-34) H 06/21/16 06:40
[2016-06-21] MEDS: Budesonide 0.5 mg/2 ml Inhal Susp UD INH SCH ×2 (07:50→20:52)
[2016-06-21 08:05] LABS: FOLATE > 20.0 ng/mL
--- NOTE | 2016-06-21 08:43 | CP.PCM.PN ---
Subjective - Date & Time of Evaluation Date of Evaluation: 06/21/16 Time of Evaluation: 08:40 - Subjective Subjective: Cardiology Progress Note for Dr. Jerome Patient seen and examined at bedside. She appeared SOB with audible wheezing. Nursing was notified. They said Respiratory therapist was called for breathing treatment. Patient also sat up and her breathing improved. Overnight and this morning, patient was noted to be in atrial fibrillation. She denies having CP, n /v/d, numbness/tingling. She just reports feeling SOB and pain in her legs. She was supposed to go to the OR this AM for AV fistula, but the procedure was cancelled due to low platelets. She also had dialysis yesterday with 1.5L of fluid removed. Objective - Vital Signs/Intake and Output Vital Signs (last 24 hours): Temp Pulse Resp BP Pulse Ox 98.3 F 102 H 18 122/72 96 06/21/16 08:00 06/21/16 08:00 06/21/16 08:00 06/21/16 08:00 06/21/16 08:00 - Medications Medications: Current Medications Albuterol/Ipratropium (Duoneb 3 Mg/0.5 Mg (3 Ml) Ud) 3 ml INH RQ6 [facility] Last Admin: 06/21/16 01:13 Dose: 3 ml Amiodarone HCl (Cordarone) 200 mg PO DAILY [facility] Artificial Tears (Artificial Tears) 1 ml OD DAILY [facility] Last Admin: 06/20/16 18:03 Dose: 1 drop Budesonide (Pulmicort Respules) 0.5 mg INH RQ12 [facility] Last Admin: 06/20/16 19:47 Dose: Not Given Calcitriol (Rocaltrol) 0.25 mcg PO DAILY [facility] Last Admin: 06/20/16 15:45 Dose: Not Given Calcium Acetate (Phoslo) 1,334 mg PO TIDCC [facility] Last Admin: 06/21/16 08:28 Dose: 1,334 mg Diltiazem HCl (Cardizem) 30 mg PO Q8H [facility] Last Admin: 06/21/16 04:48 Dose: 30 mg Epoetin Reji (Procrit) 3,000 unit IV TTS [facility] Last Admin: 06/20/16 13:49 Dose: 3,000 unit Ferric Sodium Gluconate Complex (Ferrlecit) 125 mg IVPB DAILY [facility] Stop: 06/26/16 10:16 Last Admin: 06/20/16 13:37 Dose: 125 mg Fluconazole (Diflucan) 100 mg PO DAILY [facility] Last Admin: 06/20/16 15:44 Dose: Not Given Metronidazole (Flagyl) 100 mls @ 100 mls/hr IVPB Q8H [facility] Last Admin: 06/21/16 01:41 Dose: 100 mls/hr Cefepime HCl (Maxipime Iv 1 Gm Premix) 50 mls @ 100 mls/hr IVPB Q24H [facility] Last Admin: 06/20/16 15:45 Dose: Not Given Pantoprazole Sodium (Protonix Ec Tab) 40 mg PO DAILY [facility] Last Admin: 06/20/16 15:45 Dose: Not Given Tobramycin/Dexamethasone (Tobradex 0.3%-0.1% Opht Oint) 0 appl OU Q6 [facility] Last Admin: 06/21/16 06:12 Dose: 0.3 % Vitamin A (Vitamin A & D Oint Ud Foilpak) 1 ea TOP DAILY [facility] Last Admin: 06/20/16 16:08 Dose: 1 ea - Labs Labs: 06/21/16 06:40 06/21/16 06:40 PT 32.4 SECONDS (9.7-12.2) H* 06/21/16 06:40 INR 2.8 06/21/16 06:40 APTT 37 SECONDS (21-34) H 06/21/16 06:40 - Constitutional Appears: No Acute Distress - Head Exam Head Exam: ATRAUMATIC, NORMAL INSPECTION, NORMOCEPHALIC - Eye Exam Eye Exam: Normal appearance Pupil Exam: NORMAL ACCOMODATION - ENT Exam ENT Exam: Mucous Membranes Moist - Neck Exam Neck Exam: Normal Inspection - Respiratory Exam Respiratory Exam: Rales (at bases ), Wheezes, Respiratory Distress (tachypnea ) - Cardiovascular Exam Cardiovascular Exam: REGULAR RHYTHM, +S1, +S2. absent: Gallop, Rubs, Murmur - GI/Abdominal Exam GI & Abdominal Exam: Soft, Normal Bowel Sounds. absent: Rigid, Tenderness, Mass , Rebound - Extremities Exam Extremities Exam: Calf Tenderness, Pedal Edema Additional comments: Bilateral leg swelling and redness, painful to touch - Neurological Exam Neurological Exam: Alert, Awake, CN II-XII Intact, Oriented x3 - Psychiatric Exam Psychiatric exam: Normal Affect, Normal Mood - Skin Skin Exam: Normal Color, Warm Assessment and Plan - Assessment and Plan (Free Text) Assessment: This is an 86Y F with PMH HTN, HLD, CKD stage V, diverticulitis and arthritis found to have 1) Rapid A. fib 2) ESRD- now on HD 3) Bilateral LE cellulitis 4) Transaminitis - improving 5) Chronic Anemia 6) HTN 7) HLD Plan: - A.fib was not in rhythm or rate control overnight - Will add Amiodarone, Continue Cardizem - Echo pending- will help decipher if fluid overload is secondary to kidney failure as well as heart failure - Continue hemodialysis as per Nephro - Platelet transfusion as per primary team - AV fistula placement pending increase in platelet count - Continue to monitor EKG Case seen, reviewed and discussed with Dr. Queenie Henriquez PGY1
[2016-06-21 08:51] LABS: NEUTROPHIL 80 % (50-75); TOTAL CELLS COUNTED 100
--- NOTE | 2016-06-21 08:57 | CP.PCM.PN ---
Subjective - Date & Time of Evaluation Date of Evaluation: 06/21/16 Time of Evaluation: 09:00 - Subjective Subjective: Dr. Oh Smith service, Patient is seen and examined in room. She is complains of shortness of breath. She has no other complaints of pain, fever, chills, nausea, vomiting, chest pain, or palpitations at this time. Objective - Vital Signs/Intake and Output Vital Signs (last 24 hours): Temp Pulse Resp BP Pulse Ox 98.3 F 102 H 18 122/72 96 06/21/16 08:00 06/21/16 08:00 06/21/16 08:00 06/21/16 08:00 06/21/16 08:00 - Medications Medications: Current Medications Albuterol/Ipratropium (Duoneb 3 Mg/0.5 Mg (3 Ml) Ud) 3 ml INH RQ6 [facility] Last Admin: 06/21/16 07:50 Dose: 3 ml Amiodarone HCl (Cordarone) 200 mg PO DAILY [facility] Artificial Tears (Artificial Tears) 1 ml OD DAILY [facility] Last Admin: 06/20/16 18:03 Dose: 1 drop Budesonide (Pulmicort Respules) 0.5 mg INH RQ12 [facility] Last Admin: 06/21/16 07:50 Dose: 0.5 mg Calcitriol (Rocaltrol) 0.25 mcg PO DAILY [facility] Last Admin: 06/20/16 15:45 Dose: Not Given Calcium Acetate (Phoslo) 1,334 mg PO TIDCC [facility] Last Admin: 06/21/16 08:28 Dose: 1,334 mg Diltiazem HCl (Cardizem) 30 mg PO Q8H [facility] Last Admin: 06/21/16 04:48 Dose: 30 mg Epoetin Reji (Procrit) 3,000 unit IV TTS [facility] Last Admin: 06/20/16 13:49 Dose: 3,000 unit Famotidine (Pepcid) 20 mg PO DAILY [facility] Ferric Sodium Gluconate Complex (Ferrlecit) 125 mg IVPB DAILY [facility] Stop: 06/26/16 10:16 Last Admin: 06/20/16 13:37 Dose: 125 mg Fluconazole (Diflucan) 100 mg PO DAILY [facility] Last Admin: 06/20/16 15:44 Dose: Not Given Metronidazole (Flagyl) 100 mls @ 100 mls/hr IVPB Q8H [facility] Last Admin: 06/21/16 01:41 Dose: 100 mls/hr Cefepime HCl (Maxipime Iv 1 Gm Premix) 50 mls @ 100 mls/hr IVPB Q24H [facility] Last Admin: 06/20/16 15:45 Dose: Not Given Tobramycin/Dexamethasone (Tobradex 0.3%-0.1% Opht Oint) 0 appl OU Q6 [facility] Last Admin: 06/21/16 06:12 Dose: 0.3 % Vitamin A (Vitamin A & D Oint Ud Foilpak) 1 ea TOP DAILY [facility] Last Admin: 06/20/16 16:08 Dose: 1 ea - Labs Labs: 06/21/16 06:40 06/21/16 06:40 PT 32.4 SECONDS (9.7-12.2) H* 06/21/16 06:40 INR 2.8 06/21/16 06:40 APTT 37 SECONDS (21-34) H 06/21/16 06:40 - Constitutional Appears: Non-toxic, No Acute Distress, Unkempt - Head Exam Head Exam: ATRAUMATIC, NORMAL INSPECTION, NORMOCEPHALIC - Eye Exam Eye Exam: Periorbital swelling - ENT Exam ENT Exam: Normal Exam - Respiratory Exam Respiratory Exam: Clear to Ausculation Bilateral. absent: Rales, Rhonchi, Wheezes - Cardiovascular Exam Cardiovascular Exam: REGULAR RHYTHM, RRR, +S1, +S2. absent: Gallop, Rubs - GI/Abdominal Exam GI & Abdominal Exam: Soft, Normal Bowel Sounds. absent: Guarding, Rigid, Tenderness - Extremities Exam Extremities Exam: Normal Inspection. absent: Pedal Edema Additional comments: right arm is still swollen - Neurological Exam Neurological Exam: Oriented x3 - Psychiatric Exam Psychiatric exam: Normal Affect, Normal Mood - Skin Skin Exam: Normal Color, Petechiae (diffuse on her legs and arms) Assessment and Plan - Assessment and Plan (Free Text) Assessment: Assessment: Bacteremia: 06/21 Positive blood culture, Vanco started per Dr. Talley. Coagulapathy: Patient has INR that is 2.8 Afib: 06/21: Echo read is pending, continue current mendication Previous note: Patient on amioderone and cardizem, Dr. Jerome consulted, patient will need to monititered on tele. Follow up echo. Right arm Swollen 06/21: doppler negative for DVT Previous note Will do US to look for DVT, anitcoaguation options discussed with Dr. Balderas Heme /Onc consult Pleural effusions 06/21 CT scan of the chest today without contrast, shows non specific opacities which could represent pneumonia, see emr for full read, need to follow up with Pulmonary consult. Previous note Pulmonary consult, help appreciated Elevated T. Bili 06/21: Dr. Keane consulted, T. Bili is down to 2.0, labs for Hepatitis are pending. Previous note Patient's T. Bili has increased to 6.0 in the past 2 days, have ordered for abdominal US which showed cholilithiasis and fatty liver, have also consulted Dr. Oropeza, help appreciated. Follow up GGT and indirect Bili Thromboytyopenia 06/21: Platlet is 36 today, labs for heparin induced thrombocyotpenia is pending, will continue to montior Previous note: Have consulted Dr. Balderas, will look for heparin induced thrombocytopenia. ESRD 06/21: Patient did go to the OR today due to low platlete count. continue dialysis 06/20 Patient is go for AV fistula with Dr. Fran rodriguez. ight IJ permacath placed on 06/18/16 F/U Creatinine Nephro consult - Dr. Almanzar - help appreciated Anemia 06/21: stable for now, continue to monitor. Previous note: 2 units pRBCs on 06/18/16 F/U CBC Lower extremity cellulitis 06/21: day 5 of Cefepime, Flaygl day 6, Diflucan day 4, Vanco started due to positive blood culture. 06/20: Cefepime for 4 days, Flagyl for 5 days, Diflucan for 3 days, will need to consult with Dr. Talley to see if any of these drugs are causeing her increase in T. Bili, LFTs, and alk phos. previous note Cefepime 1gm IVPB Q24H started 06/16/16 Flagyl 500mg IVPB Q8 started 06/15/16 Diflucan 100mg PO daily started 06/17/16 ID consult - Dr. Talley - help appreciated Elevated PTH Calcitriol 0.25mcg PO daily Phoslo 1334mg PO [facility]CC Dysphagia 06/10: Pureed diet F/U swallow eval Asthma Duoneb RQ6 PRN SOB Prophylaxis 06/21: Pepcid 20mg daily, stop protonix 06/20:continue current management Pepcid 20mg PO daily Holding heparin secondary to possible drug induced thrombocytopenia
[2016-06-21 09:11] LABS: RETIC% 3.4 % (0.5-1.5)
[2016-06-21] MEDS: Aritificial Tears (15ml) OD SCH (09:12)
[2016-06-21] MEDS: Vitamins A & D Oint UD Foilpak TOP SCH (09:13)
[2016-06-21] MEDS: Ferric Sodium Gluconat Complex 62.5 mg/5 ml Vial IVPB SCH (10:56)
--- NOTE | 2016-06-21 12:46 | CP.PCM.CON ---
History of Present Illness - History of Present Illness History of Present Illness: 86 yo female well known to me in the past with recent admission for Diverticulitis earlier this year. Admitted with bilateral cellulitis, leg edema and worsening renal failure. On multiple antibiotics, antifungal agents and cardiac meds. ASked to evaluate due to flair of her liver enzymes with Bilirubin to 5.9, mild elevation of AST/ALT and Alk Phos up to 600. Noted downward trend in these enzymes over the past two days. Sonogram shows increased echogenicity of liver and 5mm CBD but no masses or CBD stones, gallstones noted chronically. No pain, N/V/D. No known h/o hepatitis virus or other liver disease. Patient is a poor historian so most history from chart and notes. Review of Systems - Review of Systems Systems not reviewed;Unavailable: Dementia, Altered Mental Status Past Patient History - Infectious Disease Hx of Infectious Diseases: None - Past Medical History & Family History Past Medical History?: Yes - Past Social History Smoking Status: Never Smoked Alcohol: None Drugs: Denies - CARDIAC Hx Cardiac Disorders: Yes Hx Hypercholesterolemia: Yes Hx Hypertension: Yes - PULMONARY Hx Respiratory Disorders: No - NEUROLOGICAL Hx Neurological Disorder: No - HEENT Hx HEENT Problems: Yes Hx Cataracts: Yes - RENAL Hx Chronic Kidney Disease: No - ENDOCRINE/METABOLIC Hx Endocrine Disorders: No - HEMATOLOGICAL/ONCOLOGICAL Hx Cirrhosis: No Hx Hepatitis A: No Hx Hepatitis B: No Hx Hepatitis C: No Hx Human Immunodeficiency Virus (HIV): No - INTEGUMENTARY Hx Dermatological Problems: Yes Hx Cellulitis: Yes (jaw) - MUSCULOSKELETAL/RHEUMATOLOGICAL Hx Arthritis: Yes - GASTROINTESTINAL Hx Crohn's Disease: No Hx Diverticulitis: Yes (Diverticulosis) Hx Gall Bladder Disease: Yes Hx Gastritis: Yes Hx Gastroesophageal Reflux: Yes Hx Pancreatitis: No - GENITOURINARY/GYNECOLOGICAL Hx Genitourinary Disorders: No Hx Urinary Tract Infection: Yes (as above) - PSYCHIATRIC Hx Substance Use: No - SURGICAL HISTORY Hx Tonsillectomy: Yes (193) - ANESTHESIA Hx Anesthesia: Yes Hx Anesthesia Reactions: No Hx Malignant Hyperthermia: No Meds Allergies/Adverse Reactions: Allergies Allergy/AdvReac Type Severity Reaction Status Date / Time No Known Allergies Allergy Verified 06/14/16 23:40 - Medications Medications: Current Medications Albuterol/Ipratropium (Duoneb 3 Mg/0.5 Mg (3 Ml) Ud) 3 ml INH RQ6 [facility] Last Admin: 06/21/16 07:50 Dose: 3 ml Amiodarone HCl (Cordarone) 200 mg PO DAILY [facility] Last Admin: 06/21/16 10:19 Dose: 200 mg Artificial Tears (Artificial Tears) 1 ml OD DAILY [facility] Last Admin: 06/21/16 09:12 Dose: 1 drop Budesonide (Pulmicort Respules) 0.5 mg INH RQ12 [facility] Last Admin: 06/21/16 07:50 Dose: 0.5 mg Calcitriol (Rocaltrol) 0.25 mcg PO DAILY [facility] Last Admin: 06/21/16 09:11 Dose: 0.25 mcg Calcium Acetate (Phoslo) 1,334 mg PO TIDCC [facility] Last Admin: 06/21/16 12:19 Dose: 1,334 mg Diltiazem HCl (Cardizem) 30 mg PO Q8H [facility] Last Admin: 06/21/16 12:19 Dose: 30 mg Epoetin Reji (Procrit) 3,000 unit IV TTS [facility] Last Admin: 06/20/16 13:49 Dose: 3,000 unit Famotidine (Pepcid) 20 mg PO DAILY [facility] Last Admin: 06/21/16 09:11 Dose: 20 mg Ferric Sodium Gluconate Complex (Ferrlecit) 125 mg IVPB DAILY [facility] Stop: 06/26/16 10:16 Last Admin: 06/21/16 10:56 Dose: 125 mg Fluconazole (Diflucan) 100 mg PO DAILY [facility] Last Admin: 06/21/16 09:11 Dose: 100 mg Metronidazole (Flagyl) 100 mls @ 100 mls/hr IVPB Q8H [facility] Last Admin: 06/21/16 09:16 Dose: 100 mls/hr Cefepime HCl (Maxipime Iv 1 Gm Premix) 50 mls @ 100 mls/hr IVPB Q24H [facility] Last Admin: 06/20/16 15:45 Dose: Not Given Tobramycin/Dexamethasone (Tobradex 0.3%-0.1% Opht Oint) 0 appl OU Q6 [facility] Last Admin: 06/21/16 12:20 Dose: 1 % Vitamin A (Vitamin A & D Oint Ud Foilpak) 1 ea TOP DAILY [facility] Last Admin: 06/21/16 09:13 Dose: 1 ea Physical Exam - Constitutional Appears: No Acute Distress, Chronically Ill - Head Exam Head Exam: ATRAUMATIC, NORMOCEPHALIC - Respiratory Exam Respiratory Exam: NORMAL BREATHING PATTERN - Cardiovascular Exam Cardiovascular Exam: REGULAR RHYTHM, +S1 - GI/Abdominal Exam GI & Abdominal Exam: Normal Bowel Sounds, Soft. absent: Distended, Mass, Organomegaly, Pulsatile Mass, Rebound, Tenderness - Rectal Exam Rectal Exam: Deferred - Extremities Exam Extremities exam: Positive for: pedal edema - Neurological Exam Neurological exam: Alert Additional comments: oriented to person only - Skin Skin Exam: Dry, Warm Results - Vital Signs Recent Vital Signs: Last Vital Signs Temp 98.3 F 06/21/16 08:00 Pulse 102 H 06/21/16 08:00 Resp 18 06/21/16 08:00 BP 122/72 06/21/16 08:00 Pulse Ox 96 06/21/16 08:00 - Labs Result Diagrams: 06/21/16 06:40 06/21/16 06:40 Labs: Laboratory Results - last 24 hr 06/20/16 06/21/16 18:13 06:40 WBC 15.1 H RBC 3.09 L Hgb 9.3 L Hct 28.0 L MCV 90.5 MCH 30.0 MCHC 33.2 RDW 16.2 H Plt Count 36 L D MPV 9.2 Neut % (Auto) 87.9 H Lymph % (Auto) 8.7 L [place] % (Auto) 2.4 Eos % (Auto) 0.7 Baso % (Auto) 0.3 Neut # 13.3 H Lymph # 1.3 [place] # 0.4 Eos # 0.1 Baso # 0.1 Neutrophils % (Manual) 80 H Band Neutrophils % 6 H Lymphocytes % (Manual) 11 L Monocytes % (Manual) 3 Platelet Estimate Decreased L Polychromasia Slight Hypochromasia (manual) Slight Poikilocytosis (manual Slight Anisocytosis (manual) Slight Microcytosis (manual) Slight Target Cells Slight Ovalocytes Slight Retic Count 3.4 H PT 32.4 H* INR 2.8 APTT 37 H Fibrinogen 331 Sodium 136 Potassium 4.0 Chloride 95 L Carbon Dioxide 30 Anion Gap 15 BUN 54 H Creatinine 3.3 H Est GFR ( Amer) 16 Est GFR (Non-Af Amer) 13 Random Glucose 82 Calcium 7.0 L Ferritin 996.0 Total Bilirubin 2.1 H Direct Bilirubin 1.8 H GGT 564 H AST 47 H D ALT 64 H Alkaline Phosphatase 505 H Total Protein 3.7 L Albumin 1.9 L Globulin 1.8 L Albumin/Globulin Ratio 1.1 Vitamin B12 785 Folate > 20.0 Blood Type O POSITIVE Antibody Screen Negative - Imaging and Cardiology US - abdomen Status: Image reviewed by me, Report reviewed by me Assessment & Plan (1) Iron deficiency anemia Assessment and Plan: anemia due to renal insufficiency. No acute GI blood loss. Receiving Iron parenterally currently. Monitor for overt bleeding Emperic PPI or H2B advised Status: Acute (2) Abnormal alkaline phosphatase test Assessment and Plan: Elevated enzymes likely due to meds (antibiotics/antifungal) based on timing but may be related to congestion, ischemia or underlying chronic liver disease. Enzymes all trending down as of today Continue to monitor LFTs, check viral markers and observe for now. Doubt due to GB/biliary tract disease as gallstones are chronic for her with no dilated ducts of significance. Status: Acute (3) Abnormal transaminases Assessment and Plan: as above Status: Acute (4) Cellulitis Assessment and Plan: as per ID and surgery May need to adjust abx if enzzymes rise again. Status: Acute (5) Diverticulosis Assessment and Plan: No diverticulitis at present, resolved from last admission. Status: Acute (6) Gallstones Assessment and Plan: h/o gallstones but no evidence to suggest CBD stone or acute cholecystitis at present Continue to observe. Status: Acute
[2016-06-21] MEDS ORDERED: Albumin Human 25% (12.5 gm/50 ml) IV SCH (14:00)
--- NOTE | 2016-06-21 14:14 | CT ---
PROCEDURE: CT Chest without contrast HISTORY: Respiratory Congestion COMPARISON: None. TECHNIQUE: Contiguous axial images were obtained through the chest without intravenous contrast enhancement. Sagittal and coronal reconstructions were performed. Radiation dose (DLP): 613.06 mGy-cm. FINDINGS: LUNGS: There is consolidation at the bilateral lower lobes likely due to compressive atelectasis due to pleural effusion. There is also airspace consolidation in the central portion of the right lung including the central and will will posterior portion of the right lung upper lobe and central portion of the right middle lobe. There is a pleural base opacity seen at the medial aspect of the right lung upper lobe/ lung apex of uncertain etiology. Moderate pulmonary vascular congestion is also noted. MEDIASTINUM: Unremarkable thoracic aorta. No aneurysm. The heart is mildly to moderately enlarged. Main pulmonary artery unremarkable. No vascular congestion. No lymphadenopathy. PLEURA: Moderate right and small to moderate left pleural effusions. No evidence of pericardial effusion. BONES: No fracture. No destructive lesion. UPPER ABDOMEN: Grossly unremarkable. OTHER FINDINGS: [id number] soft tissue edema. IMPRESSION: Moderate to large right and small to moderate left pleural effusions. Fdhk-[id number]-cctypxbe cardiomegaly. Partial consolidation of the lower lobes right more than left likely due to compressive atelectasis. Underlying infiltrate or consolidation is not totally excluded. Bilateral perihilar central opacities seen which also could be due to pulmonary congestion. Pleural based focal opacity at the medial aspect of the left lung upper lobe of uncertain etiology. The possibility of infection or less likely neoplasm should be considered. [id number]-evsdidsw soft tissue edema.
--- NOTE | 2016-06-21 15:28 | CP.PCM.PN ---
Subjective - Date & Time of Evaluation Date of Evaluation: 06/21/16 Time of Evaluation: 15:25 - Subjective Subjective: More alert in general; better appetite Elevated LFTs starting to decrease- possibly from passive congestion Still wheezing; has had moderate UF last dialysis- will need to remove more fluid with HD Remains oligo-anuric Plats have dropped- etiology unclear Rash still about same Ferritin increasing- will hold ferrlecit Objective - Vital Signs/Intake and Output Vital Signs (last 24 hours): Temp Pulse Resp BP Pulse Ox 98.3 F 111 H 18 122/72 96 06/21/16 08:00 06/21/16 08:35 06/21/16 08:00 06/21/16 08:00 06/21/16 08:00 - Medications Medications: Current Medications Albuterol/Ipratropium (Duoneb 3 Mg/0.5 Mg (3 Ml) Ud) 3 ml INH RQ6 [facility] Last Admin: 06/21/16 13:27 Dose: Not Given Amiodarone HCl (Cordarone) 200 mg PO DAILY [facility] Last Admin: 06/21/16 10:19 Dose: 200 mg Artificial Tears (Artificial Tears) 1 ml OD DAILY [facility] Last Admin: 06/21/16 09:12 Dose: 1 drop Budesonide (Pulmicort Respules) 0.5 mg INH RQ12 [facility] Last Admin: 06/21/16 07:50 Dose: 0.5 mg Calcitriol (Rocaltrol) 0.25 mcg PO DAILY [facility] Last Admin: 06/21/16 09:11 Dose: 0.25 mcg Calcium Acetate (Phoslo) 1,334 mg PO TIDCC [facility] Last Admin: 06/21/16 12:19 Dose: 1,334 mg Diltiazem HCl (Cardizem) 30 mg PO Q8H [facility] Last Admin: 06/21/16 12:19 Dose: 30 mg Epoetin Reji (Procrit) 3,000 unit IV TTS [facility] Last Admin: 06/20/16 13:49 Dose: 3,000 unit Famotidine (Pepcid) 20 mg PO DAILY [facility] Last Admin: 06/21/16 09:11 Dose: 20 mg Ferric Sodium Gluconate Complex (Ferrlecit) 125 mg IVPB DAILY [facility] Stop: 06/26/16 10:16 Last Admin: 06/21/16 10:56 Dose: 125 mg Fluconazole (Diflucan) 100 mg PO DAILY [facility] Last Admin: 06/21/16 09:11 Dose: 100 mg Metronidazole (Flagyl) 100 mls @ 100 mls/hr IVPB Q8H [facility] Last Admin: 06/21/16 09:16 Dose: 100 mls/hr Cefepime HCl (Maxipime Iv 1 Gm Premix) 50 mls @ 100 mls/hr IVPB Q24H [facility] Last Admin: 06/20/16 15:45 Dose: Not Given Albumin Human (Albumin Human 25% (12.5 Gm/50 Ml)) 50 mls @ 50 mls/hr IV Q12 [facility] Tobramycin/Dexamethasone (Tobradex 0.3%-0.1% Opht Oint) 0 appl OU Q6 [facility] Last Admin: 06/21/16 12:20 Dose: 1 % Vitamin A (Vitamin A & D Oint Ud Foilpak) 1 ea TOP DAILY [facility] Last Admin: 06/21/16 09:13 Dose: 1 ea - Labs Labs: 06/21/16 06:40 06/21/16 06:40 PT 32.4 SECONDS (9.7-12.2) H* 06/21/16 06:40 INR 2.8 06/21/16 06:40 APTT 37 SECONDS (21-34) H 06/21/16 06:40 - Constitutional Appears: Confused, Chronically Ill - Head Exam Head Exam: ATRAUMATIC, NORMAL INSPECTION - Eye Exam Eye Exam: EOMI, Normal appearance - Neck Exam Neck Exam: Normal Inspection. absent: Tenderness - Respiratory Exam Respiratory Exam: Wheezes, NORMAL BREATHING PATTERN - Cardiovascular Exam Cardiovascular Exam: REGULAR RHYTHM, +S1 - GI/Abdominal Exam GI & Abdominal Exam: Soft. absent: Tenderness - Extremities Exam Extremities Exam: Pedal Edema. 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
--- NOTE | 2016-06-21 16:39 | CP.PCM.PN ---
Subjective - Date & Time of Evaluation Date of Evaluation: 06/21/16 Time of Evaluation: 10:00 - Subjective Subjective: blood c/s + cocci iv vanco ordered weak and not eating consider gaby Objective - Vital Signs/Intake and Output Vital Signs (last 24 hours): Temp Pulse Resp BP Pulse Ox 98.3 F 111 H 18 122/72 96 06/21/16 08:00 06/21/16 08:35 06/21/16 08:00 06/21/16 08:00 06/21/16 08:00 - Medications Medications: Current Medications Albuterol/Ipratropium (Duoneb 3 Mg/0.5 Mg (3 Ml) Ud) 3 ml INH RQ6 [facility] Last Admin: 06/21/16 13:27 Dose: Not Given Amiodarone HCl (Cordarone) 200 mg PO DAILY [facility] Last Admin: 06/21/16 10:19 Dose: 200 mg Artificial Tears (Artificial Tears) 1 ml OD DAILY [facility] Last Admin: 06/21/16 09:12 Dose: 1 drop Budesonide (Pulmicort Respules) 0.5 mg INH RQ12 [facility] Last Admin: 06/21/16 07:50 Dose: 0.5 mg Calcitriol (Rocaltrol) 0.25 mcg PO DAILY [facility] Last Admin: 06/21/16 09:11 Dose: 0.25 mcg Calcium Acetate (Phoslo) 1,334 mg PO TIDCC [facility] Last Admin: 06/21/16 12:19 Dose: 1,334 mg Diltiazem HCl (Cardizem) 30 mg PO Q8H [facility] Last Admin: 06/21/16 12:19 Dose: 30 mg Epoetin Reji (Procrit) 3,000 unit IV TTS [facility] Last Admin: 06/20/16 13:49 Dose: 3,000 unit Famotidine (Pepcid) 20 mg PO DAILY [facility] Last Admin: 06/21/16 09:11 Dose: 20 mg Fluconazole (Diflucan) 100 mg PO DAILY [facility] Last Admin: 06/21/16 09:11 Dose: 100 mg Metronidazole (Flagyl) 100 mls @ 100 mls/hr IVPB Q8H [facility] Last Admin: 06/21/16 09:16 Dose: 100 mls/hr Cefepime HCl (Maxipime Iv 1 Gm Premix) 50 mls @ 100 mls/hr IVPB Q24H [facility] Last Admin: 06/20/16 15:45 Dose: Not Given Albumin Human (Albumin Human 25% (12.5 Gm/50 Ml)) 50 mls @ 50 mls/hr IV Q12 [facility] Vancomycin HCl 1 gm/ Sodium (Chloride) 250 mls @ 166.7 mls/hr IVPB MWF [facility] Tobramycin/Dexamethasone (Tobradex 0.3%-0.1% Opht Oint) 0 appl OU Q6 [facility] Last Admin: 06/21/16 12:20 Dose: 1 % Vitamin A (Vitamin A & D Oint Ud Foilpak) 1 ea TOP DAILY [facility] Last Admin: 06/21/16 09:13 Dose: 1 ea - Labs Labs: 06/21/16 06:40 06/21/16 06:40 PT 32.4 SECONDS (9.7-12.2) H* 06/21/16 06:40 INR 2.8 06/21/16 06:40 APTT 37 SECONDS (21-34) H 06/21/16 06:40 - Constitutional Appears: Non-toxic, Cachectic, Chronically Ill - Head Exam Head Exam: NORMOCEPHALIC - Eye Exam Eye Exam: absent: Scleral icterus - ENT Exam ENT Exam: Mucous Membranes Dry - Neck Exam Neck Exam: absent: Lymphadenopathy - Respiratory Exam Respiratory Exam: Decreased Breath Sounds - Cardiovascular Exam Cardiovascular Exam: Tachycardia, REGULAR RHYTHM - GI/Abdominal Exam GI & Abdominal Exam: Distended Assessment and Plan (1) Acidosis Status: Acute (2) Acute renal failure Status: Acute (3) Arterial, arteriole and capillary disease Status: Acute (4) CHF (congestive heart failure) Status: Acute (5) Hyponatremia Status: Resolved (6) Abdominal pain Status: Acute (7) Acute renal insufficiency Status: Acute (8) Breath shortness Status: Acute (9) Cellulitis and abscess of leg Status: Acute
--- NOTE | 2016-06-21 17:22 | VASCLAB ---
PROCEDURE: Right Upper Extremity Venous Duplex Exam HISTORY: Leg pain, rule out DVT PRIORS: None. TECHNIQUE: Right upper extremity, internal jugular, subclavian, axillary, brachial, ulnar, radial, basilic and upper cephalic veins were evaluated. Flow was assessed with color Doppler, compressibility, assessment of phasic flow and augmentation response. Report prepared by Yvon Izaguirre, MAX, RVT FINDINGS: RIGHT: 1. Internal Jugular: 1.1. Compressibility - Fully compressible: Thrombus - None : Flow - Phasic: Augmentation -Normal: Reflux - None. 2. Subclavian: 2.1. Compressibility - Fully compressible: Thrombus - None : Flow - Phasic: Augmentation -Normal: Reflux - None. 3. Axillary: 3.1. Compressibility - Fully compressible: Thrombus - None : Flow - Phasic: Augmentation -Normal: Reflux - None. 4. Brachial: 4.1. Compressibility - Fully compressible: Thrombus - None: Flow - Phasic: Augmentation -Normal: Reflux - None. 5. Ulnar: 5.1. Compressibility - Fully compressible: Thrombus - None: Flow - Phasic: Augmentation -Normal: Reflux - None. 6. Radial: 6.1. Compressibility - Fully compressible: Thrombus - None: Flow - Phasic: Augmentation - Normal: Reflux - None. 7. Cephalic: 7.1. Compressibility - Fully compressible: Thrombus - None: Flow - Phasic: Augmentation -Normal: Reflux - None. 8. Basilic: 8.1. Compressibility - Fully compressible: Thrombus - None: Flow - Phasic: Augmentation -Normal: Reflux - None. OTHER FINDINGS: Right: None. IMPRESSION: Right: No evidence of vein thrombosis of the right upper extremity with excellent venous flow. Normal valve function noted of the right side. Normal venous flow noted in the left internal jugular and left subclavian veins.
--- NOTE | 2016-06-21 18:17 | CP.PCM.PN ---
Subjective - Date & Time of Evaluation Date of Evaluation: 06/21/16 Time of Evaluation: 10:20 - Subjective Subjective: clinically same Objective - Vital Signs/Intake and Output Vital Signs (last 24 hours): Temp Pulse Resp BP Pulse Ox 98.3 F 111 H 18 122/72 96 06/21/16 08:00 06/21/16 08:35 06/21/16 08:00 06/21/16 08:00 06/21/16 08:00 - Medications Medications: Current Medications Albuterol/Ipratropium (Duoneb 3 Mg/0.5 Mg (3 Ml) Ud) 3 ml INH RQ6 [facility] Last Admin: 06/21/16 13:27 Dose: Not Given Amiodarone HCl (Cordarone) 200 mg PO DAILY [facility] Last Admin: 06/21/16 10:19 Dose: 200 mg Artificial Tears (Artificial Tears) 1 ml OD DAILY [facility] Last Admin: 06/21/16 09:12 Dose: 1 drop Budesonide (Pulmicort Respules) 0.5 mg INH RQ12 [facility] Last Admin: 06/21/16 07:50 Dose: 0.5 mg Calcitriol (Rocaltrol) 0.25 mcg PO DAILY [facility] Last Admin: 06/21/16 09:11 Dose: 0.25 mcg Calcium Acetate (Phoslo) 1,334 mg PO TIDCC [facility] Last Admin: 06/21/16 12:19 Dose: 1,334 mg Diltiazem HCl (Cardizem) 30 mg PO Q8H [facility] Last Admin: 06/21/16 12:19 Dose: 30 mg Epoetin Reji (Procrit) 3,000 unit IV TTS [facility] Last Admin: 06/20/16 13:49 Dose: 3,000 unit Famotidine (Pepcid) 20 mg PO DAILY [facility] Last Admin: 06/21/16 09:11 Dose: 20 mg Fluconazole (Diflucan) 100 mg PO DAILY [facility] Last Admin: 06/21/16 09:11 Dose: 100 mg Metronidazole (Flagyl) 100 mls @ 100 mls/hr IVPB Q8H [facility] Last Admin: 06/21/16 09:16 Dose: 100 mls/hr Cefepime HCl (Maxipime Iv 1 Gm Premix) 50 mls @ 100 mls/hr IVPB Q24H [facility] Last Admin: 06/20/16 15:45 Dose: Not Given Albumin Human (Albumin Human 25% (12.5 Gm/50 Ml)) 50 mls @ 50 mls/hr IV Q12 [facility] Vancomycin/Sodium Chloride (Vancocin) 200 mls @ 133.333 mls/hr IVPB MWF [facility] Tobramycin/Dexamethasone (Tobradex 0.3%-0.1% Opht Oint) 0 appl OU Q6 [facility] Last Admin: 06/21/16 12:20 Dose: 1 % Vitamin A (Vitamin A & D Oint Ud Foilpak) 1 ea TOP DAILY [facility] Last Admin: 06/21/16 09:13 Dose: 1 ea - Labs Labs: 06/21/16 06:40 06/21/16 06:40 PT 32.4 SECONDS (9.7-12.2) H* 06/21/16 06:40 INR 2.8 06/21/16 06:40 APTT 37 SECONDS (21-34) H 06/21/16 06:40 - Constitutional Appears: Well - Head Exam Head Exam: ATRAUMATIC, NORMAL INSPECTION, NORMOCEPHALIC - Eye Exam Eye Exam: EOMI, Normal appearance, PERRL Pupil Exam: NORMAL ACCOMODATION, PERRL - ENT Exam ENT Exam: Mucous Membranes Moist, Normal Exam - Neck Exam Neck Exam: Full ROM, Normal Inspection. absent: Lymphadenopathy - Respiratory Exam Respiratory Exam: Decreased Breath Sounds - Cardiovascular Exam Cardiovascular Exam: REGULAR RHYTHM, +S1, +S2 - GI/Abdominal Exam GI & Abdominal Exam: Soft, Diminished Bowel Sounds - Rectal Exam Rectal Exam: Deferred
[2016-06-22] MEDS: Albuterol-Ipratrop 3 mg / 0.5 (3 ml) UD INH SCH ×4 (01:03→19:31)
[2016-06-22] MEDS: Tobramycin/Dexamethasone OPHT OINT OU SCH ×4 (01:13→18:29)
[2016-06-22] MEDS: metroNIDAZOLE IV 500 mg/100 ml 100 ML IVPB SCH ×3 (01:14→18:27)
[2016-06-22] MEDS ORDERED: Albuterol-Ipratrop 3 mg / 0.5 (3 ml) UD INH STA (04:04)
--- NOTE | 2016-06-22 04:08 | CP.PCM.PN ---
Subjective - Date & Time of Evaluation Date of Evaluation: 06/22/16 Time of Evaluation: 04:05 - Subjective Subjective: Internal medicine mini note for Dr. Antoine Moyer, PGY-1 Nursing notified house resident - pt wheezing, in respiratory distress. O2 sat 92%. Last duonebs given at 1am. Patient seen and evaluated. Unable to speak due to distress. Objective - Vital Signs/Intake and Output Vital Signs (last 24 hours): Temp Pulse Resp BP Pulse Ox 99.3 F 90 20 128/58 L 96 06/21/16 23:40 06/21/16 23:40 06/21/16 23:40 06/21/16 23:40 06/21/16 23:40 - Medications Medications: Current Medications Albuterol/Ipratropium (Duoneb 3 Mg/0.5 Mg (3 Ml) Ud) 3 ml INH RQ6 [facility] Last Admin: 06/22/16 01:03 Dose: 3 ml Albuterol/Ipratropium (Duoneb 3 Mg/0.5 Mg (3 Ml) Ud) 3 ml INH RSTAT [facility] Stop: 06/22/16 04:05 Amiodarone HCl (Cordarone) 200 mg PO DAILY [facility] Last Admin: 06/21/16 10:19 Dose: 200 mg Artificial Tears (Artificial Tears) 1 ml OD DAILY [facility] Last Admin: 06/21/16 09:12 Dose: 1 drop Budesonide (Pulmicort Respules) 0.5 mg INH RQ12 [facility] Last Admin: 06/21/16 20:52 Dose: 0.5 mg Calcitriol (Rocaltrol) 0.25 mcg PO DAILY [facility] Last Admin: 06/21/16 09:11 Dose: 0.25 mcg Calcium Acetate (Phoslo) 1,334 mg PO TIDCC [facility] Last Admin: 06/21/16 18:20 Dose: 1,334 mg Diltiazem HCl (Cardizem) 30 mg PO Q8H [facility] Last Admin: 06/21/16 20:54 Dose: 30 mg Epoetin Reji (Procrit) 3,000 unit IV TTS [facility] Last Admin: 06/20/16 13:49 Dose: 3,000 unit Famotidine (Pepcid) 20 mg PO DAILY [facility] Last Admin: 06/21/16 09:11 Dose: 20 mg Fluconazole (Diflucan) 100 mg PO DAILY [facility] Last Admin: 06/21/16 09:11 Dose: 100 mg Metronidazole (Flagyl) 100 mls @ 100 mls/hr IVPB Q8H [facility] Last Admin: 06/22/16 01:14 Dose: 100 mls/hr Cefepime HCl (Maxipime Iv 1 Gm Premix) 50 mls @ 100 mls/hr IVPB Q24H [facility] Last Admin: 06/20/16 15:45 Dose: Not Given Albumin Human (Albumin Human 25% (12.5 Gm/50 Ml)) 50 mls @ 50 mls/hr IV Q12 [facility] Last Admin: 06/21/16 21:08 Dose: 50 mls/hr Vancomycin/Sodium Chloride (Vancocin) 200 mls @ 133.333 mls/hr IVPB MWF [facility] Tobramycin/Dexamethasone (Tobradex 0.3%-0.1% Opht Oint) 0 appl OU Q6 [facility] Last Admin: 06/22/16 01:13 Dose: 0.3 % Vitamin A (Vitamin A & D Oint Ud Foilpak) 1 ea TOP DAILY [facility] Last Admin: 06/21/16 09:13 Dose: 1 ea - Labs Labs: 06/21/16 06:40 06/21/16 06:40 PT 32.4 SECONDS (9.7-12.2) H* 06/21/16 06:40 INR 2.8 06/21/16 06:40 APTT 37 SECONDS (21-34) H 06/21/16 06:40 - Constitutional Appears: Other (Patient unable to speak due to respiratory distress) - Respiratory Exam Respiratory Exam: Accessory Muscle Use, Wheezes, Respiratory Distress. absent: Clear to Ausculation Bilateral, Rales, Rhonchi, NORMAL BREATHING PATTERN - Cardiovascular Exam Cardiovascular Exam: Tachycardia, +S1, +S2 Assessment and Plan - Assessment and Plan (Free Text) Assessment: 1. Respiratory distress Stat Duonebs Placed pt on non-rebreather Ordered Bipap Repeat vitals: O2 sat 88, HR 127 Monitor
[2016-06-22 07:30] LABS: MEAN CELL VOLUME 91.1 fL (81.0-99.0); MEAN CORPUSCULAR HEMOGLOBIN 30.6 pg (27.0-31.0); MEAN CORPUSCULAR HGB CONC 33.6 g/dL (33.0-37.0); MEAN PLATELET VOLUME 10.1 fL (7.2-11.7); RED CELL DISTRIBUTION WIDTH 16.1 % (11.5-14.5); WHITE BLOOD COUNT 14.4 K/uL (4.8-10.8)
[2016-06-22 07:39] LABS: POTASSIUM 4.1 mmol/L (3.6-5.2)
[2016-06-22] MEDS: Budesonide 0.5 mg/2 ml Inhal Susp UD INH SCH ×2 (07:40→19:31)
[2016-06-22 07:42] LABS: BILIRUBIN,DIRECT 1.4 mg/dL (0.0-0.4); BILIRUBIN,TOTAL 1.4 mg/dL (0.2-1.3); CALCIUM 7.1 mg/dl (8.6-10.4); PHOSPHOROUS 4.3 mg/dL (2.5-4.5); TOTAL PROTEIN 3.7 g/dL (6.3-8.3)
--- NOTE | 2016-06-22 07:57 | CP.PCM.PN ---
Subjective - Date & Time of Evaluation Date of Evaluation: 06/22/16 Time of Evaluation: 07:44 Objective - Vital Signs/Intake and Output Vital Signs (last 24 hours): Temp Pulse Resp BP Pulse Ox 99.3 F 90 20 128/58 L 96 06/21/16 23:40 06/22/16 00:00 06/21/16 23:40 06/21/16 23:40 06/21/16 23:40 - Medications Medications: Current Medications Albuterol/Ipratropium (Duoneb 3 Mg/0.5 Mg (3 Ml) Ud) 3 ml INH RQ6 [facility] Last Admin: 06/22/16 01:03 Dose: 3 ml Amiodarone HCl (Cordarone) 200 mg PO DAILY [facility] Last Admin: 06/21/16 10:19 Dose: 200 mg Artificial Tears (Artificial Tears) 1 ml OD DAILY [facility] Last Admin: 06/21/16 09:12 Dose: 1 drop Budesonide (Pulmicort Respules) 0.5 mg INH RQ12 [facility] Last Admin: 06/21/16 20:52 Dose: 0.5 mg Calcitriol (Rocaltrol) 0.25 mcg PO DAILY [facility] Last Admin: 06/21/16 09:11 Dose: 0.25 mcg Calcium Acetate (Phoslo) 1,334 mg PO TIDCC [facility] Last Admin: 06/21/16 18:20 Dose: 1,334 mg Diltiazem HCl (Cardizem) 30 mg PO Q8H [facility] Last Admin: 06/22/16 04:45 Dose: Not Given Epoetin Reji (Procrit) 3,000 unit IV TTS [facility] Last Admin: 06/20/16 13:49 Dose: 3,000 unit Famotidine (Pepcid) 20 mg PO DAILY [facility] Last Admin: 06/21/16 09:11 Dose: 20 mg Fluconazole (Diflucan) 100 mg PO DAILY [facility] Last Admin: 06/21/16 09:11 Dose: 100 mg Metronidazole (Flagyl) 100 mls @ 100 mls/hr IVPB Q8H [facility] Last Admin: 06/22/16 01:14 Dose: 100 mls/hr Cefepime HCl (Maxipime Iv 1 Gm Premix) 50 mls @ 100 mls/hr IVPB Q24H [facility] Last Admin: 06/20/16 15:45 Dose: Not Given Albumin Human (Albumin Human 25% (12.5 Gm/50 Ml)) 50 mls @ 50 mls/hr IV Q12 [facility] Last Admin: 06/21/16 21:08 Dose: 50 mls/hr Vancomycin/Sodium Chloride (Vancocin) 200 mls @ 133.333 mls/hr IVPB MWF [facility] Tobramycin/Dexamethasone (Tobradex 0.3%-0.1% Opht Oint) 0 appl OU Q6 [facility] Last Admin: 06/22/16 05:04 Dose: 0.3 % Vitamin A (Vitamin A & D Oint Ud Foilpak) 1 ea TOP DAILY [facility] Last Admin: 06/21/16 09:13 Dose: 1 ea - Labs Labs: 06/22/16 06:30 06/21/16 06:40 PT 32.4 SECONDS (9.7-12.2) H* 06/21/16 06:40 INR 2.8 06/21/16 06:40 APTT 37 SECONDS (21-34) H 06/21/16 06:40
[2016-06-22 07:59] LABS: ALB/GLOB RATIO 0.9 (1.0-2.1)
[2016-06-22] MEDS: Aritificial Tears (15ml) OD SCH (10:00)
--- NOTE | 2016-06-22 10:25 | CP.PCM.PN ---
Subjective - Date & Time of Evaluation Date of Evaluation: 06/22/16 Time of Evaluation: 10:23 - Subjective Subjective: Notes reviewed Patient seen on dialysis in hd unit AWake and with cpap mask on Does not speak much Dyspnea noted Appears weak and fatigued qb 300 ROS: difficult to obtain due to cpap machine, NO nunes or vision change, rash unchanged, no cp or palp, + sob, requiring cpap assistance, no diarrhea or abd pain described, otherwise ros negative Objective - Vital Signs/Intake and Output Vital Signs (last 24 hours): Temp Pulse Resp BP Pulse Ox 97.9 F 86 20 144/73 97 06/22/16 07:00 06/22/16 09:01 06/22/16 07:00 06/22/16 07:00 06/22/16 07:00 - Medications Medications: Current Medications Albuterol/Ipratropium (Duoneb 3 Mg/0.5 Mg (3 Ml) Ud) 3 ml INH RQ6 [facility] Last Admin: 06/22/16 07:40 Dose: 3 ml Amiodarone HCl (Cordarone) 200 mg PO DAILY [facility] Last Admin: 06/21/16 10:19 Dose: 200 mg Artificial Tears (Artificial Tears) 1 ml OD DAILY [facility] Last Admin: 06/21/16 09:12 Dose: 1 drop Budesonide (Pulmicort Respules) 0.5 mg INH RQ12 [facility] Last Admin: 06/22/16 07:40 Dose: 0.5 mg Calcitriol (Rocaltrol) 0.25 mcg PO DAILY [facility] Last Admin: 06/21/16 09:11 Dose: 0.25 mcg Calcium Acetate (Phoslo) 1,334 mg PO TIDCC [facility] Last Admin: 06/22/16 08:05 Dose: Not Given Diltiazem HCl (Cardizem) 30 mg PO Q8H [facility] Last Admin: 06/22/16 07:45 Dose: 30 mg Epoetin Reji (Procrit) 3,000 unit IV TTS [facility] Last Admin: 06/20/16 13:49 Dose: 3,000 unit Famotidine (Pepcid) 20 mg PO DAILY [facility] Last Admin: 06/21/16 09:11 Dose: 20 mg Fluconazole (Diflucan) 100 mg PO DAILY [facility] Last Admin: 06/21/16 09:11 Dose: 100 mg Metronidazole (Flagyl) 100 mls @ 100 mls/hr IVPB Q8H [facility] Last Admin: 06/22/16 01:14 Dose: 100 mls/hr Cefepime HCl (Maxipime Iv 1 Gm Premix) 50 mls @ 100 mls/hr IVPB Q24H [facility] Last Admin: 06/20/16 15:45 Dose: Not Given Albumin Human (Albumin Human 25% (12.5 Gm/50 Ml)) 50 mls @ 50 mls/hr IV Q12 [facility] Last Admin: 06/21/16 21:08 Dose: 50 mls/hr Vancomycin/Sodium Chloride (Vancocin) 200 mls @ 133.333 mls/hr IVPB MWF [facility] Tobramycin/Dexamethasone (Tobradex 0.3%-0.1% Opht Oint) 0 appl OU Q6 [facility] Last Admin: 06/22/16 05:04 Dose: 0.3 % Vitamin A (Vitamin A & D Oint Ud Foilpak) 1 ea TOP DAILY [facility] Last Admin: 06/21/16 09:13 Dose: 1 ea - Labs Labs: 06/22/16 06:30 06/22/16 06:30 PT 32.4 SECONDS (9.7-12.2) H* 06/21/16 06:40 INR 2.8 06/21/16 06:40 APTT 37 SECONDS (21-34) H 06/21/16 06:40 - Constitutional Appears: In Acute Distress, Chronically Ill - Head Exam Head Exam: ATRAUMATIC, NORMAL INSPECTION - Eye Exam Eye Exam: EOMI Additional comments: no icterus - ENT Exam ENT Exam: Mucous Membranes Moist, Normal External Ear Exam - Neck Exam Neck Exam: absent: Lymphadenopathy, Thyromegaly - Respiratory Exam Respiratory Exam: Rales, Rhonchi, Wheezes - Cardiovascular Exam Cardiovascular Exam: RRR, +S1, +S2, Murmur - GI/Abdominal Exam GI & Abdominal Exam: Soft, Normal Bowel Sounds - Extremities Exam Extremities Exam: Pedal Edema Additional comments: anasarca - Neurological Exam Neurological Exam: Awake - Skin Skin Exam: Rash. absent: Cyanosis Assessment and Plan (1) Acute renal failure Status: Acute (2) CHF (congestive heart failure) Status: Acute (3) Thrombocytopenia Status: Acute (4) ESRD (end stage renal disease) Status: Suspected - Assessment and Plan (Free Text) Assessment: Tolerating dialysis well UF goal 3000ml Bp stable currently Abx as ordered ? heme eval
--- NOTE | 2016-06-22 10:27 | CP.PCM.PN ---
Subjective - Date & Time of Evaluation Date of Evaluation: 06/22/16 Time of Evaluation: 10:00 - Subjective Subjective: F/U elev LFTs Covering Dr Castillo. Pt is seen is HD. No report of RB, fever, chills, melena, abdom pain, hemoptysis, SOB, SZ Objective - Vital Signs/Intake and Output Vital Signs (last 24 hours): Temp Pulse Resp BP Pulse Ox 97.9 F 86 20 144/73 97 06/22/16 07:00 06/22/16 09:01 06/22/16 07:00 06/22/16 07:00 06/22/16 07:00 - Medications Medications: Current Medications Albuterol/Ipratropium (Duoneb 3 Mg/0.5 Mg (3 Ml) Ud) 3 ml INH RQ6 [facility] Last Admin: 06/22/16 07:40 Dose: 3 ml Amiodarone HCl (Cordarone) 200 mg PO DAILY [facility] Last Admin: 06/21/16 10:19 Dose: 200 mg Artificial Tears (Artificial Tears) 1 ml OD DAILY [facility] Last Admin: 06/21/16 09:12 Dose: 1 drop Budesonide (Pulmicort Respules) 0.5 mg INH RQ12 [facility] Last Admin: 06/22/16 07:40 Dose: 0.5 mg Calcitriol (Rocaltrol) 0.25 mcg PO DAILY [facility] Last Admin: 06/21/16 09:11 Dose: 0.25 mcg Calcium Acetate (Phoslo) 1,334 mg PO TIDCC [facility] Last Admin: 06/22/16 08:05 Dose: Not Given Diltiazem HCl (Cardizem) 30 mg PO Q8H [facility] Last Admin: 06/22/16 07:45 Dose: 30 mg Epoetin Reji (Procrit) 3,000 unit IV TTS [facility] Last Admin: 06/20/16 13:49 Dose: 3,000 unit Famotidine (Pepcid) 20 mg PO DAILY [facility] Last Admin: 06/21/16 09:11 Dose: 20 mg Fluconazole (Diflucan) 100 mg PO DAILY [facility] Last Admin: 06/21/16 09:11 Dose: 100 mg Metronidazole (Flagyl) 100 mls @ 100 mls/hr IVPB Q8H [facility] Last Admin: 06/22/16 01:14 Dose: 100 mls/hr Cefepime HCl (Maxipime Iv 1 Gm Premix) 50 mls @ 100 mls/hr IVPB Q24H [facility] Last Admin: 06/20/16 15:45 Dose: Not Given Albumin Human (Albumin Human 25% (12.5 Gm/50 Ml)) 50 mls @ 50 mls/hr IV Q12 [facility] Last Admin: 06/21/16 21:08 Dose: 50 mls/hr Vancomycin/Sodium Chloride (Vancocin) 200 mls @ 133.333 mls/hr IVPB MWF [facility] Tobramycin/Dexamethasone (Tobradex 0.3%-0.1% Opht Oint) 0 appl OU Q6 [facility] Last Admin: 06/22/16 05:04 Dose: 0.3 % Vitamin A (Vitamin A & D Oint Ud Foilpak) 1 ea TOP DAILY [facility] Last Admin: 06/21/16 09:13 Dose: 1 ea - Labs Labs: 06/22/16 06:30 06/22/16 06:30 PT 32.4 SECONDS (9.7-12.2) H* 06/21/16 06:40 INR 2.8 06/21/16 06:40 APTT 37 SECONDS (21-34) H 06/21/16 06:40 - Constitutional Appears: Non-toxic - Respiratory Exam Respiratory Exam: Rales, Rhonchi - Cardiovascular Exam Cardiovascular Exam: RRR - GI/Abdominal Exam GI & Abdominal Exam: Soft, Normal Bowel Sounds. absent: Tenderness - Extremities Exam Extremities Exam: Pedal Edema - Neurological Exam Neurological Exam: Awake - Skin Skin Exam: Erythema, Petechiae, Rash Assessment and Plan - Assessment and Plan (Free Text) Assessment: Cellulits ARF- HD Elev LFTs: related to meds. LFTs are improving. RASh CHF Pl effusions Anemia. Fe deficiency. Cholelithiasis. H/O diverticulitis in past Low PLTS Discussed with DR Mindy Madison. REC: Follow LFTs, evaluate low PLTs.
[2016-06-22] MEDS: Vitamins A & D Oint UD Foilpak TOP SCH (11:19)
[2016-06-22] MEDS: Epoetin Alfa Dialysis 3000 UNIT/ML Inj IV SCH (12:06)
[2016-06-22] MEDS: Cefepime IV 1 gm in Dextrose 50 ML IVPB SCH (13:31)
--- NOTE | 2016-06-22 14:36 | CP.PCM.PN ---
Subjective - Date & Time of Evaluation Date of Evaluation: 06/22/16 Time of Evaluation: 10:00 - Subjective Subjective: clinically same Objective - Vital Signs/Intake and Output Vital Signs (last 24 hours): Temp Pulse Resp BP Pulse Ox 99.1 F 85 22 108/46 L 99 06/22/16 09:40 06/22/16 13:15 06/22/16 13:15 06/22/16 13:15 06/22/16 13:15 - Medications Medications: Current Medications Albuterol/Ipratropium (Duoneb 3 Mg/0.5 Mg (3 Ml) Ud) 3 ml INH RQ6 [facility] Last Admin: 06/22/16 13:22 Dose: 3 ml Amiodarone HCl (Cordarone) 200 mg PO DAILY [facility] Last Admin: 06/22/16 10:00 Dose: Not Given Artificial Tears (Artificial Tears) 1 ml OD DAILY [facility] Last Admin: 06/22/16 10:00 Dose: Not Given Budesonide (Pulmicort Respules) 0.5 mg INH RQ12 [facility] Last Admin: 06/22/16 07:40 Dose: 0.5 mg Calcitriol (Rocaltrol) 0.25 mcg PO DAILY [facility] Last Admin: 06/22/16 10:05 Dose: Not Given Calcium Acetate (Phoslo) 1,334 mg PO TIDCC [facility] Last Admin: 06/22/16 12:28 Dose: Not Given Diltiazem HCl (Cardizem) 30 mg PO Q8H [facility] Last Admin: 06/22/16 12:26 Dose: Not Given Epoetin Reji (Procrit) 3,000 unit IV TTS [facility] Last Admin: 06/22/16 12:06 Dose: 3,000 unit Famotidine (Pepcid) 20 mg PO DAILY [facility] Last Admin: 06/22/16 11:18 Dose: Not Given Fluconazole (Diflucan) 100 mg PO DAILY [facility] Last Admin: 06/22/16 10:05 Dose: Not Given Metronidazole (Flagyl) 100 mls @ 100 mls/hr IVPB Q8H [facility] Last Admin: 06/22/16 09:00 Dose: Not Given Cefepime HCl (Maxipime Iv 1 Gm Premix) 50 mls @ 100 mls/hr IVPB Q24H [facility] Last Admin: 06/22/16 13:31 Dose: Not Given Albumin Human (Albumin Human 25% (12.5 Gm/50 Ml)) 50 mls @ 50 mls/hr IV Q12 [facility] Last Admin: 06/22/16 12:13 Dose: 50 mls/hr Vancomycin/Sodium Chloride (Vancocin) 200 mls @ 133.333 mls/hr IVPB MWF [facility] Tobramycin/Dexamethasone (Tobradex 0.3%-0.1% Opht Oint) 0 appl OU Q6 [facility] Last Admin: 06/22/16 12:29 Dose: Not Given Vitamin A (Vitamin A & D Oint Ud Foilpak) 1 ea TOP DAILY [facility] Last Admin: 06/22/16 11:19 Dose: Not Given - Labs Labs: 06/22/16 06:30 06/22/16 06:30 PT 32.4 SECONDS (9.7-12.2) H* 06/21/16 06:40 INR 2.8 06/21/16 06:40 APTT 37 SECONDS (21-34) H 06/21/16 06:40 - Constitutional Appears: Well - Head Exam Head Exam: ATRAUMATIC, NORMAL INSPECTION, NORMOCEPHALIC - Eye Exam Eye Exam: EOMI, Normal appearance, PERRL Pupil Exam: NORMAL ACCOMODATION, PERRL - ENT Exam ENT Exam: Mucous Membranes Moist, Normal Exam - Neck Exam Neck Exam: Full ROM, Normal Inspection. absent: Lymphadenopathy - Respiratory Exam Respiratory Exam: Decreased Breath Sounds - Cardiovascular Exam Cardiovascular Exam: REGULAR RHYTHM, +S1, +S2 - GI/Abdominal Exam GI & Abdominal Exam: Soft, Diminished Bowel Sounds - Rectal Exam Rectal Exam: Deferred
[2016-06-22] MEDS ORDERED: Sodium Chloride 0.9% 500 ML IV ONE (21:17)
[2016-06-23] MEDS: Tobramycin/Dexamethasone OPHT OINT OU SCH ×4 (00:09→18:41)
[2016-06-23] MEDS: metroNIDAZOLE IV 500 mg/100 ml 100 ML IVPB SCH (01:01)
[2016-06-23] MEDS: Albuterol-Ipratrop 3 mg / 0.5 (3 ml) UD INH SCH ×4 (01:47→19:33)
[2016-06-23] MEDS ORDERED: Sodium Chloride 0.9% 500 ML IV ONE (04:30)
[2016-06-23] MEDS ORDERED: Digoxin 500 mcg/2ml (0.5 mg/2ml) Inj IVP ONE (05:13)
[2016-06-23 05:26] VITALS: PULSE 148
--- NOTE | 2016-06-23 06:17 | CP.PCM.PN ---
<Shaila Moyer - Last Filed: 06/23/16 06:12> Subjective - Date & Time of Evaluation Date of Evaluation: 06/23/16 Time of Evaluation: 06:12 - Subjective Subjective: Internal medicine progress note for Dr. Antoine Moyer, PGY-1 Pt S & E at bedside. Pt has been resting comfortably overnight w/multiple episodes of afib w/RVR while on Bipap due to SOB/respiratory distress. Pt denies chest pain, palpitations, headache, N/V/F/C, abdominal pain, lower extremity pain, vision changes. Objective - Vital Signs/Intake and Output Vital Signs (last 24 hours): Temp Pulse Resp BP Pulse Ox 98.2 F 140 H 20 109/74 97 06/23/16 00:25 06/23/16 05:27 06/23/16 00:25 06/23/16 05:27 06/23/16 00:25 Intake and Output: 06/22/16 06/23/16 18:59 06:59 Intake Total 250 Balance 250 - Medications Medications: Current Medications Albuterol/Ipratropium (Duoneb 3 Mg/0.5 Mg (3 Ml) Ud) 3 ml INH RQ6 [facility] Last Admin: 06/23/16 01:47 Dose: 3 ml Amiodarone HCl (Cordarone) 200 mg PO DAILY [facility] Last Admin: 06/22/16 10:00 Dose: Not Given Artificial Tears (Artificial Tears) 1 ml OD DAILY [facility] Last Admin: 06/22/16 10:00 Dose: Not Given Budesonide (Pulmicort Respules) 0.5 mg INH RQ12 [facility] Last Admin: 06/22/16 19:31 Dose: 0.5 mg Calcitriol (Rocaltrol) 0.25 mcg PO DAILY [facility] Last Admin: 06/22/16 10:05 Dose: Not Given Calcium Acetate (Phoslo) 1,334 mg PO TIDCC [facility] Last Admin: 06/22/16 18:00 Dose: 1,334 mg Diltiazem HCl (Cardizem) 30 mg PO Q8H [facility] Last Admin: 06/23/16 03:50 Dose: 30 mg Epoetin Reji (Procrit) 3,000 unit IV TTS [facility] Last Admin: 06/22/16 12:06 Dose: 3,000 unit Famotidine (Pepcid) 20 mg PO DAILY [facility] Last Admin: 06/22/16 11:18 Dose: Not Given Fluconazole (Diflucan) 100 mg PO DAILY [facility] Last Admin: 06/22/16 10:05 Dose: Not Given Metronidazole (Flagyl) 100 mls @ 100 mls/hr IVPB Q8H [facility] Last Admin: 06/23/16 01:01 Dose: 100 mls/hr Cefepime HCl (Maxipime Iv 1 Gm Premix) 50 mls @ 100 mls/hr IVPB Q24H [facility] Last Admin: 06/22/16 13:31 Dose: Not Given Albumin Human (Albumin Human 25% (12.5 Gm/50 Ml)) 50 mls @ 50 mls/hr IV Q12 [facility] Last Admin: 06/22/16 21:25 Dose: 50 mls/hr Vancomycin/Sodium Chloride (Vancocin) 200 mls @ 133.333 mls/hr IVPB MWF [facility] Tobramycin/Dexamethasone (Tobradex 0.3%-0.1% Opht Oint) 0 appl OU Q6 [facility] Last Admin: 06/23/16 00:09 Dose: 0.3 % Vitamin A (Vitamin A & D Oint Ud Foilpak) 1 ea TOP DAILY [facility] Last Admin: 06/22/16 11:19 Dose: Not Given - Labs Labs: 06/22/16 06:30 06/22/16 06:30 PT 32.4 SECONDS (9.7-12.2) H* 06/21/16 06:40 INR 2.8 06/21/16 06:40 APTT 37 SECONDS (21-34) H 06/21/16 06:40 - Constitutional Appears: In Acute Distress, Older Than Stated Age - Head Exam Head Exam: ATRAUMATIC, NORMAL INSPECTION, NORMOCEPHALIC - Eye Exam Eye Exam: EOMI, Normal appearance, PERRL Pupil Exam: NORMAL ACCOMODATION, PERRL - ENT Exam ENT Exam: Mucous Membranes Dry, Normal Exam - Neck Exam Neck Exam: Normal Inspection - Respiratory Exam Respiratory Exam: Accessory Muscle Use, Clear to Ausculation Bilateral, Respiratory Distress, NORMAL BREATHING PATTERN. absent: Chest Wall Tenderness, Rales, Rhonchi, Wheezes Additional comments: On Bipap - Cardiovascular Exam Cardiovascular Exam: Tachycardia - GI/Abdominal Exam GI & Abdominal Exam: Soft, Normal Bowel Sounds. absent: Distended, Firm, Guarding, Rigid, Tenderness - Extremities Exam Extremities Exam: Pedal Edema (3+ pitting edema B/L) - Neurological Exam Neurological Exam: Alert, Awake, Oriented x3 - Psychiatric Exam Psychiatric exam: Normal Affect, Normal Mood - Skin Skin Exam: Dry, Mottled, Petechiae (diffuse), Warm. absent: Normal Color (B/L LE w/chronic venous stasis changes) Assessment and Plan - Assessment and Plan (Free Text) Assessment: AFib w/RVR vs. Aflutter HR in 120-160's over night Given total of Cardizem IV 25mg Given 1 L bolus Given Dig 0.25mg x 1 Given Cardizem 30mg PO (home med) Continued to be unstable Spoke w/Dr. Cooper - pt to be transferred to ICU, recommended EKG, amiodarone drip- ordered DW attending <Norman Shepard - Last Filed: 06/23/16 06:36> Subjective - Date & Time of Evaluation Date of Evaluation: 06/23/16 (Patient with a fib with RVR. Attempts with Cardizem and digoxin overnight but with poor control. Consult from Dr. Jerome appreciated. Transfer to ICU and start Amio drip. Monitor for acute changes.) Time of Evaluation: 06:35 Objective - Vital Signs/Intake and Output Vital Signs (last 24 hours): Temp Pulse Resp BP Pulse Ox 98.2 F 128 H 20 131/64 97 06/23/16 00:25 06/23/16 06:18 06/23/16 00:25 06/23/16 06:18 06/23/16 00:25 Intake and Output: 06/22/16 06/23/16 18:59 06:59 Intake Total 250 Balance 250 - Medications Medications: Current Medications Albuterol/Ipratropium (Duoneb 3 Mg/0.5 Mg (3 Ml) Ud) 3 ml INH RQ6 [facility] Last Admin: 06/23/16 01:47 Dose: 3 ml Amiodarone HCl (Cordarone) 200 mg PO DAILY [facility] Last Admin: 06/22/16 10:00 Dose: Not Given Artificial Tears (Artificial Tears) 1 ml OD DAILY [facility] Last Admin: 06/22/16 10:00 Dose: Not Given Budesonide (Pulmicort Respules) 0.5 mg INH RQ12 [facility] Last Admin: 06/22/16 19:31 Dose: 0.5 mg Calcitriol (Rocaltrol) 0.25 mcg PO DAILY [facility] Last Admin: 06/22/16 10:05 Dose: Not Given Calcium Acetate (Phoslo) 1,334 mg PO TIDCC [facility] Last Admin: 06/22/16 18:00 Dose: 1,334 mg Diltiazem HCl (Cardizem) 30 mg PO Q8H [facility] Last Admin: 06/23/16 03:50 Dose: 30 mg Epoetin Reji (Procrit) 3,000 unit IV TTS [facility] Last Admin: 06/22/16 12:06 Dose: 3,000 unit Famotidine (Pepcid) 20 mg PO DAILY [facility] Last Admin: 06/22/16 11:18 Dose: Not Given Fluconazole (Diflucan) 100 mg PO DAILY [facility] Last Admin: 06/22/16 10:05 Dose: Not Given Metronidazole (Flagyl) 100 mls @ 100 mls/hr IVPB Q8H [facility] Last Admin: 06/23/16 01:01 Dose: 100 mls/hr Cefepime HCl (Maxipime Iv 1 Gm Premix) 50 mls @ 100 mls/hr IVPB Q24H [facility] Last Admin: 06/22/16 13:31 Dose: Not Given Albumin Human (Albumin Human 25% (12.5 Gm/50 Ml)) 50 mls @ 50 mls/hr IV Q12 [facility] Last Admin: 06/22/16 21:25 Dose: 50 mls/hr Vancomycin/Sodium Chloride (Vancocin) 200 mls @ 133.333 mls/hr IVPB MWF [facility] Amiodarone HCl 900 mg/ (Dextrose) 500 mls @ 16.66 mls/hr IV .Q24H ONE; 0.5 MG/ MIN PRN Reason: Protocol Stop: 06/24/16 06:25 Tobramycin/Dexamethasone (Tobradex 0.3%-0.1% Opht Oint) 0 appl OU Q6 [facility] Last Admin: 06/23/16 00:09 Dose: 0.3 % Vitamin A (Vitamin A & D Oint Ud Foilpak) 1 ea TOP DAILY [facility] Last Admin: 06/22/16 11:19 Dose: Not Given - Labs Labs: 06/22/16 06:30 06/22/16 06:30 PT 32.4 SECONDS (9.7-12.2) H* 06/21/16 06:40 INR 2.8 06/21/16 06:40 APTT 37 SECONDS (21-34) H 06/21/16 06:40
[2016-06-23] MEDS: Budesonide 0.5 mg/2 ml Inhal Susp UD INH SCH ×2 (08:11→19:33)
--- NOTE | 2016-06-23 08:37 | CARD ---
APPROVED REPORT EXAM: Two-dimensional and M-mode echocardiogram with Doppler and color Doppler. Other Information Quality : GoodRhythm : NSR INDICATION Congestive Heart Failure esrd M-Mode DIMENSIONS RVDd0.85 (2.1-3.2cm)Left Atrium (MM)4.50 (2.5-4.0cm) IVSd1.48 (0.7-1.1cm)Aortic Root2.69 (2.2-3.7cm) LVDd5.61 (4.0-5.6cm)Aortic Cusp Exc.1.00 (1.5-2.0cm) PWd1.59 (0.7-1.1cm)FS (%) 33 % LVDs3.76 (2.0-3.8cm)LVEF (%)61 (>50%) Aortic Valve AoV Peak Uqpfhmfq067.9cm/Bogdan Peak GR.19mmHgLVOT Peak Snhnfppg878.0cm/s AI P 1/2 Smvy286ab Mitral Valve MV E Olzgyvhp76.3cm/sMV A Nootccnv782.4cm/sE/A ratio0.9 TDI E/Lateral E'0.0E/Medial E'0.0 Tricuspid Valve TR Peak Mkqvxpvt545qu/sTR Peak Gr.92hfDaZIEB93uqOw LEFT VENTRICLE The left ventricle is normal size. There is mild concentric left ventricular hypertrophy. The left ventricular function is normal. The left ventricular ejection fraction is within the normal range. Septal motion consistent with conduction abnormality. Transmitral Doppler flow pattern is Grade I-abnormal relaxation pattern. No left ventricle thrombus noted on this study. There is no ventricular septal defect visualized. There is no left ventricular aneurysm. There is no mass noted in the left ventricle. RIGHT VENTRICLE The right ventricle is normal size. There is normal right ventricular wall thickness. The right ventricular systolic function is normal. ATRIA The left atrium is mildly dilated. The right atrium size is normal. The interatrial septum is intact with no evidence for an atrial septal defect. AORTIC VALVE The aortic valve is mildly sclerotic. The aortic valve is mildly calcified. There is mild aortic regurgitation. There is no aortic valvular stenosis. There is no aortic valvular vegetation. MITRAL VALVE Mitral annular calcification is mild. There is no evidence of mitral valve prolapse. There is no mitral valve stenosis. Mitral regurgitation is mild. TRICUSPID VALVE The tricuspid valve is normal in structure and function. There is trace to mild tricuspid regurgitation. There is no tricuspid valve prolapse or vegetation. There is no tricuspid valve stenosis. PULMONIC VALVE NWV There is trace to mild pulmonic valvular regurgitation. There is no pulmonic valvular stenosis. GREAT VESSELS The aortic root is normal in size. The ascending aorta is normal in size. The pulmonary artery is normal. The IVC is normal in size and collapses >50% with inspiration. PERICARDIAL EFFUSION The pericardium appears normal. There is no pleural effusion. <Conclusion> The left ventricular ejection fraction is within the normal range. There is mild concentric left ventricular hypertrophy. Septal motion consistent with conduction abnormality. Transmitral Doppler flow pattern is Grade I-abnormal relaxation pattern. The left atrium is mildly dilated. The aortic valve is mildly sclerotic. There is mild aortic regurgitation. Mitral annular calcification is mild. Mitral regurgitation is mild. There is trace to mild tricuspid regurgitation. There is trace to mild pulmonic valvular regurgitation.
[2016-06-23 08:58] LABS: ABG ALLEN TEST P; ARTERIAL BLOOD HGB O2 SAT 96.6 % (95.0-98.0); CARBOXYHEMOGLOBIN 1.7 % (0.5-1.5); DRAW SITE RRA; HHB 0.6 % (0.0-5.0); METHEMOGLOBIN 1.1 % (0.0-3.0)
--- NOTE | 2016-06-23 09:00 | CP.PCM.PN ---
Subjective - Date & Time of Evaluation Date of Evaluation: 06/23/16 Time of Evaluation: 08:45 Objective - Vital Signs/Intake and Output Vital Signs (last 24 hours): Temp Pulse Resp BP Pulse Ox 98.8 F 125 H 35 H 125/62 100 06/23/16 08:10 06/23/16 08:11 06/23/16 08:10 06/23/16 08:10 06/23/16 08:10 Intake and Output: 06/23/16 06/23/16 06:59 18:59 Intake Total 250 16.7 Balance 250 16.7 - Medications Medications: Current Medications Albuterol/Ipratropium (Duoneb 3 Mg/0.5 Mg (3 Ml) Ud) 3 ml INH RQ6 [facility] Last Admin: 06/23/16 08:11 Dose: 3 ml Amiodarone HCl (Cordarone) 200 mg PO DAILY [facility] Last Admin: 06/22/16 10:00 Dose: Not Given Artificial Tears (Artificial Tears) 1 ml OD DAILY [facility] Last Admin: 06/22/16 10:00 Dose: Not Given Budesonide (Pulmicort Respules) 0.5 mg INH RQ12 [facility] Last Admin: 06/23/16 08:11 Dose: Not Given Calcitriol (Rocaltrol) 0.25 mcg PO DAILY [facility] Last Admin: 06/22/16 10:05 Dose: Not Given Calcium Acetate (Phoslo) 1,334 mg PO TIDCC [facility] Last Admin: 06/23/16 08:33 Dose: Not Given Diltiazem HCl (Cardizem) 60 mg PO Q8H [facility] Epoetin Reji (Procrit) 3,000 unit IV TTS [facility] Last Admin: 06/22/16 12:06 Dose: 3,000 unit Famotidine (Pepcid) 20 mg PO DAILY [facility] Last Admin: 06/22/16 11:18 Dose: Not Given Fluconazole (Diflucan) 100 mg PO DAILY [facility] Last Admin: 06/22/16 10:05 Dose: Not Given Metronidazole (Flagyl) 100 mls @ 100 mls/hr IVPB Q8H [facility] Last Admin: 06/23/16 01:01 Dose: 100 mls/hr Cefepime HCl (Maxipime Iv 1 Gm Premix) 50 mls @ 100 mls/hr IVPB Q24H [facility] Last Admin: 06/22/16 13:31 Dose: Not Given Albumin Human (Albumin Human 25% (12.5 Gm/50 Ml)) 50 mls @ 50 mls/hr IV Q12 [facility] Last Admin: 06/22/16 21:25 Dose: 50 mls/hr Vancomycin/Sodium Chloride (Vancocin) 200 mls @ 133.333 mls/hr IVPB MWF [facility] Amiodarone HCl 900 mg/ (Dextrose) 500 mls @ 16.66 mls/hr IV .Q24H ONE; 0.5 MG/ MIN PRN Reason: Protocol Stop: 06/24/16 06:25 Last Admin: 06/23/16 07:33 Dose: 16.66 mls/hr Chromium/Copper/Manganese/Zinc (1 ml/ Amino Acids) 1,001 mls @ 50 mls/hr IV .Q20H2M [facility] Stop: 06/24/16 14:00 Chromium/Copper/Manganese/Zinc 1 ml/ Multivitamins/Vitamin C 10 ml/ Amino Acids 1,011 mls @ 50 mls/hr IV .[id number] [facility] Stop: 06/24/16 18:00 Tobramycin/Dexamethasone (Tobradex 0.3%-0.1% Opht Oint) 0 appl OU Q6 [facility] Last Admin: 06/23/16 00:09 Dose: 0.3 % Vitamin A (Vitamin A & D Oint Ud Foilpak) 1 ea TOP DAILY [facility] Last Admin: 06/22/16 11:19 Dose: Not Given - Labs Labs: 06/22/16 06:30 06/22/16 06:30 PT 32.4 SECONDS (9.7-12.2) H* 06/21/16 06:40 INR 2.8 06/21/16 06:40 APTT 37 SECONDS (21-34) H 06/21/16 06:40
[2016-06-23] MEDS: Aritificial Tears (15ml) OD SCH (09:21)
[2016-06-23] MEDS: Vitamins A & D Oint UD Foilpak TOP SCH (09:23)
--- NOTE | 2016-06-23 11:01 | CP.PCM.PN ---
Subjective - Date & Time of Evaluation Date of Evaluation: 06/23/16 Objective - Vital Signs/Intake and Output Vital Signs (last 24 hours): Temp Pulse Resp BP Pulse Ox 98.8 F 119 H 27 H 118/67 100 06/23/16 08:10 06/23/16 10:00 06/23/16 10:00 06/23/16 10:00 06/23/16 10:00 Intake and Output: 06/23/16 06/23/16 06:59 18:59 Intake Total 250 50.1 Balance 250 50.1 - Medications Medications: Current Medications Albuterol/Ipratropium (Duoneb 3 Mg/0.5 Mg (3 Ml) Ud) 3 ml INH RQ6 [facility] Last Admin: 06/23/16 08:11 Dose: 3 ml Amiodarone HCl (Cordarone) 200 mg PO DAILY [facility] Last Admin: 06/23/16 09:23 Dose: Not Given Artificial Tears (Artificial Tears) 1 ml OD DAILY [facility] Last Admin: 06/23/16 09:21 Dose: 1 drop Budesonide (Pulmicort Respules) 0.5 mg INH RQ12 [facility] Last Admin: 06/23/16 08:11 Dose: Not Given Calcitriol (Rocaltrol) 0.25 mcg PO DAILY [facility] Last Admin: 06/22/16 10:05 Dose: Not Given Calcium Acetate (Phoslo) 1,334 mg PO TIDCC [facility] Last Admin: 06/23/16 08:33 Dose: Not Given Diltiazem HCl (Cardizem) 60 mg PO Q8H [facility] Epoetin Reji (Procrit) 3,000 unit IV TTS [facility] Last Admin: 06/22/16 12:06 Dose: 3,000 unit Famotidine (Pepcid) 20 mg PO DAILY [facility] Last Admin: 06/23/16 09:21 Dose: 20 mg Fluconazole (Diflucan) 100 mg PO DAILY [facility] Last Admin: 06/23/16 09:21 Dose: 100 mg Cefepime HCl (Maxipime Iv 1 Gm Premix) 50 mls @ 100 mls/hr IVPB Q24H [facility] Last Admin: 06/22/16 13:31 Dose: Not Given Albumin Human (Albumin Human 25% (12.5 Gm/50 Ml)) 50 mls @ 50 mls/hr IV Q12 [facility] Last Admin: 06/23/16 09:22 Dose: 50 mls/hr Vancomycin/Sodium Chloride (Vancocin) 200 mls @ 133.333 mls/hr IVPB MWF [facility] Amiodarone HCl 900 mg/ (Dextrose) 500 mls @ 16.66 mls/hr IV .Q24H [facility]; 0.5 MG/ MIN PRN Reason: Protocol Stop: 06/24/16 06:25 Last Admin: 06/23/16 07:33 Dose: 16.66 mls/hr Chromium/Copper/Manganese/Zinc (1 ml/ Amino Acids) 1,001 mls @ 50 mls/hr IV .Q20H2M [facility] Stop: 06/24/16 14:00 Chromium/Copper/Manganese/Zinc 1 ml/ Multivitamins/Vitamin C 10 ml/ Amino Acids 1,011 mls @ 50 mls/hr IV .[id number] [facility] Stop: 06/24/16 18:00 Tobramycin/Dexamethasone (Tobradex 0.3%-0.1% Opht Oint) 0 appl OU Q6 [facility] Last Admin: 06/23/16 09:24 Dose: Not Given Vitamin A (Vitamin A & D Oint Ud Foilpak) 1 ea TOP DAILY [facility] Last Admin: 06/23/16 09:23 Dose: 1 ea - Labs Labs: 06/22/16 06:30 06/22/16 06:30 PT 32.4 SECONDS (9.7-12.2) H* 06/21/16 06:40 INR 2.8 06/21/16 06:40 APTT 37 SECONDS (21-34) H 06/21/16 06:40
--- NOTE | 2016-06-23 11:24 | CP.PCM.PN ---
Subjective - Date & Time of Evaluation Date of Evaluation: 06/23/16 Time of Evaluation: 11:21 - Subjective Subjective: F/U abnormal LFTs. Covering Dr Castillo. Afib. moved to CCU. No report of RB, melena, abdom pain, chills, SZ CP, TAVAREZ, cough, hematuria, hemoptysis Objective - Vital Signs/Intake and Output Vital Signs (last 24 hours): Temp Pulse Resp BP Pulse Ox 98.8 F 119 H 27 H 118/67 100 06/23/16 08:10 06/23/16 11:09 06/23/16 10:00 06/23/16 10:00 06/23/16 10:00 Intake and Output: 06/23/16 06/23/16 06:59 18:59 Intake Total 250 50.1 Balance 250 50.1 - Medications Medications: Current Medications Albuterol/Ipratropium (Duoneb 3 Mg/0.5 Mg (3 Ml) Ud) 3 ml INH RQ6 [facility] Last Admin: 06/23/16 08:11 Dose: 3 ml Amiodarone HCl (Cordarone) 200 mg PO DAILY [facility] Last Admin: 06/23/16 09:23 Dose: Not Given Artificial Tears (Artificial Tears) 1 ml OD DAILY [facility] Last Admin: 06/23/16 09:21 Dose: 1 drop Budesonide (Pulmicort Respules) 0.5 mg INH RQ12 [facility] Last Admin: 06/23/16 08:11 Dose: Not Given Calcitriol (Rocaltrol) 0.25 mcg PO DAILY [facility] Last Admin: 06/22/16 10:05 Dose: Not Given Calcium Acetate (Phoslo) 1,334 mg PO TIDCC [facility] Last Admin: 06/23/16 08:33 Dose: Not Given Diltiazem HCl (Cardizem) 60 mg PO Q8H [facility] Epoetin Reji (Procrit) 3,000 unit IV TTS [facility] Last Admin: 06/22/16 12:06 Dose: 3,000 unit Famotidine (Pepcid) 20 mg PO DAILY [facility] Last Admin: 06/23/16 09:21 Dose: 20 mg Fluconazole (Diflucan) 100 mg PO DAILY [facility] Last Admin: 06/23/16 09:21 Dose: 100 mg Cefepime HCl (Maxipime Iv 1 Gm Premix) 50 mls @ 100 mls/hr IVPB Q24H [facility] Last Admin: 06/22/16 13:31 Dose: Not Given Albumin Human (Albumin Human 25% (12.5 Gm/50 Ml)) 50 mls @ 50 mls/hr IV Q12 [facility] Last Admin: 06/23/16 09:22 Dose: 50 mls/hr Vancomycin/Sodium Chloride (Vancocin) 200 mls @ 133.333 mls/hr IVPB MWF [facility] Amiodarone HCl 900 mg/ (Dextrose) 500 mls @ 16.66 mls/hr IV .Q24H ONE; 0.5 MG/ MIN PRN Reason: Protocol Stop: 06/24/16 06:25 Last Admin: 06/23/16 07:33 Dose: 16.66 mls/hr Chromium/Copper/Manganese/Zinc (1 ml/ Amino Acids) 1,001 mls @ 50 mls/hr IV .Q20H2M [facility] Stop: 06/24/16 14:00 Chromium/Copper/Manganese/Zinc 1 ml/ Multivitamins/Vitamin C 10 ml/ Amino Acids 1,011 mls @ 50 mls/hr IV .[id number] [facility] Stop: 06/24/16 18:00 Tobramycin/Dexamethasone (Tobradex 0.3%-0.1% Opht Oint) 0 appl OU Q6 [facility] Last Admin: 06/23/16 09:24 Dose: Not Given Vitamin A (Vitamin A & D Oint Ud Foilpak) 1 ea TOP DAILY [facility] Last Admin: 06/23/16 09:23 Dose: 1 ea - Labs Labs: 06/22/16 06:30 06/22/16 06:30 PT 32.4 SECONDS (9.7-12.2) H* 06/21/16 06:40 INR 2.8 06/21/16 06:40 APTT 37 SECONDS (21-34) H 06/21/16 06:40 - Constitutional Appears: Chronically Ill - Respiratory Exam Respiratory Exam: Wheezes - Cardiovascular Exam Cardiovascular Exam: Irregular Rhythm - GI/Abdominal Exam GI & Abdominal Exam: Soft, Normal Bowel Sounds. absent: Tenderness - Neurological Exam Neurological Exam: Awake. absent: Oriented x3 - Skin Skin Exam: Petechiae Assessment and Plan (1) Abnormal transaminases Assessment & Plan: LFTs are improving. Likely was related to meds/antibiotics. Status: Acute (2) Acute renal failure Assessment & Plan: HD Status: Acute (3) Anemia Assessment & Plan: Fe def Status: Acute (4) CHF (congestive heart failure) Status: Acute (5) Cellulitis Status: Acute (6) Thrombocytopenia Status: Acute (7) ESRD (end stage renal disease) Status: Suspected
[2016-06-23 11:37] LABS: HEMATOCRIT 25.4 % (34.0-47.0)
[2016-06-23 11:47] LABS: MEAN CELL VOLUME 92.2 fL (81.0-99.0); MEAN CORPUSCULAR HGB CONC 32.5 g/dL (33.0-37.0); RED CELL DISTRIBUTION WIDTH 16.1 % (11.5-14.5); WHITE BLOOD COUNT 25.1 K/uL (4.8-10.8)
[2016-06-23 11:49] LABS: POTASSIUM 4.6 mmol/L (3.6-5.2)
[2016-06-23 11:51] LABS: ALB/GLOB RATIO 1.3 (1.0-2.1); BILIRUBIN,TOTAL 1.4 mg/dL (0.2-1.3); TOTAL PROTEIN 4.4 g/dL (6.3-8.3)
[2016-06-23 11:52] LABS: CALCIUM 7.1 mg/dl (8.6-10.4); MAGNESIUM 1.9 mg/dL (1.6-2.3); PHOSPHOROUS 4.7 mg/dL (2.5-4.5)
[2016-06-23 12:01] LABS: PLATELET COUNT 54 K/uL (130-400)
[2016-06-23 12:39] LABS: EOSINOPHIL 1 % (0-4); NEUTROPHIL 79 % (50-75); TOTAL CELLS COUNTED 100
--- NOTE | 2016-06-23 13:07 | RAD ---
HISTORY: SOB, r/o worsening pulmonary edema COMPARISON: Comparison chest dated 06/19/2016. FINDINGS: LUNGS: Moderate to fairly significant central pulmonary vascular congestion, increased from prior study with bilateral alveolar-type infiltrates and bilateral effusions. PLEURA: No pneumothorax apparent. CARDIOVASCULAR: Normal. OSSEOUS STRUCTURES: No significant abnormalities. VISUALIZED UPPER ABDOMEN: Normal. OTHER FINDINGS: No change right IJ dialysis catheter with tip in the SVC/RA junction. IMPRESSION: Moderate to significant central pulmonary vascular congestion increased from prior study. Bilateral alveolar-type infiltrates and bilateral effusions
[2016-06-23] MEDS: Linezolid 600 mg in D5W 300 ml 300 ML IVPB SCH ×2 (15:29→22:25)
[2016-06-23] MEDS: Cefepime IV 1 gm in Dextrose 50 ML IVPB SCH ×2 (15:29→17:41)
--- NOTE | 2016-06-23 15:35 | CP.PCM.PN ---
Subjective - Date & Time of Evaluation Date of Evaluation: 06/23/16 Time of Evaluation: 07:00 - Subjective Subjective: AWAKE ALERT ON BIPAP IV RX IN PROGRESS STILL SOB AFEB VRE IN BLOOD Objective - Vital Signs/Intake and Output Vital Signs (last 24 hours): Temp Pulse Resp BP Pulse Ox 98 F 111 H 27 H 114/57 L 100 06/23/16 15:00 06/23/16 15:00 06/23/16 15:00 06/23/16 15:00 06/23/16 15:00 Intake and Output: 06/23/16 06/23/16 06:59 18:59 Intake Total 250 183.6 Balance 250 183.6 - Medications Medications: Current Medications Albuterol/Ipratropium (Duoneb 3 Mg/0.5 Mg (3 Ml) Ud) 3 ml INH RQ6 [facility] Last Admin: 06/23/16 13:07 Dose: Not Given Amiodarone HCl (Cordarone) 200 mg PO DAILY [facility] Last Admin: 06/23/16 09:23 Dose: Not Given Artificial Tears (Artificial Tears) 1 ml OD DAILY [facility] Last Admin: 06/23/16 09:21 Dose: 1 drop Budesonide (Pulmicort Respules) 0.5 mg INH RQ12 [facility] Last Admin: 06/23/16 08:11 Dose: Not Given Calcitriol (Rocaltrol) 0.25 mcg PO DAILY [facility] Last Admin: 06/23/16 13:39 Dose: Not Given Calcium Acetate (Phoslo) 1,334 mg PO TIDCC [facility] Last Admin: 06/23/16 13:40 Dose: Not Given Diltiazem HCl (Cardizem) 60 mg PO Q8H [facility] Epoetin Reji (Procrit) 3,000 unit IV TTS [facility] Last Admin: 06/22/16 12:06 Dose: 3,000 unit Famotidine (Pepcid) 20 mg PO DAILY [facility] Last Admin: 06/23/16 09:21 Dose: 20 mg Fluconazole (Diflucan) 100 mg PO DAILY [facility] Last Admin: 06/23/16 09:21 Dose: 100 mg Cefepime HCl (Maxipime Iv 1 Gm Premix) 50 mls @ 100 mls/hr IVPB Q24H [facility] Last Admin: 06/23/16 15:29 Dose: 100 mls/hr Albumin Human (Albumin Human 25% (12.5 Gm/50 Ml)) 50 mls @ 50 mls/hr IV Q12 [facility] Last Admin: 06/23/16 13:47 Dose: 50 mls/hr Amiodarone HCl 900 mg/ (Dextrose) 500 mls @ 16.66 mls/hr IV .Q24H ONE; 0.5 MG/ MIN PRN Reason: Protocol Stop: 06/24/16 06:25 Last Admin: 06/23/16 07:33 Dose: 16.66 mls/hr Chromium/Copper/Manganese/Zinc (1 ml/ Amino Acids) 1,001 mls @ 50 mls/hr IV .Q20H2M [facility] Stop: 06/24/16 14:00 Chromium/Copper/Manganese/Zinc 1 ml/ Multivitamins/Vitamin C 10 ml/ Amino Acids 1,011 mls @ 50 mls/hr IV .[id number] [facility] Stop: 06/24/16 18:00 Linezolid (Zyvox 600mg/300ml D5w) 300 mls @ 200 mls/hr IVPB Q12 [facility] Last Admin: 06/23/16 15:29 Dose: 200 mls/hr Tobramycin/Dexamethasone (Tobradex 0.3%-0.1% Opht Oint) 0 appl OU Q6 [facility] Last Admin: 06/23/16 13:57 Dose: 1 % Vitamin A (Vitamin A & D Oint Ud Foilpak) 1 ea TOP DAILY [facility] Last Admin: 06/23/16 09:23 Dose: 1 ea - Labs Labs: 06/23/16 11:28 06/23/16 11:28 PT 32.4 SECONDS (9.7-12.2) H* 06/21/16 06:40 INR 2.8 06/21/16 06:40 APTT 37 SECONDS (21-34) H 06/21/16 06:40 - Constitutional Appears: Non-toxic, Chronically Ill - Head Exam Head Exam: NORMOCEPHALIC - Eye Exam Eye Exam: PERRL. absent: Scleral icterus - ENT Exam ENT Exam: Mucous Membranes Dry, Normal External Ear Exam - Neck Exam Neck Exam: absent: Lymphadenopathy - Respiratory Exam Respiratory Exam: Decreased Breath Sounds, Rhonchi - Cardiovascular Exam Cardiovascular Exam: Tachycardia, REGULAR RHYTHM, +S1, +S2 - GI/Abdominal Exam GI & Abdominal Exam: Distended, Soft, Hypoactive Bowel Sounds. absent: Tenderness - Rectal Exam Rectal Exam: Deferred - Exam Exam: NORMAL INSPECTION - Extremities Exam Extremities Exam: absent: Calf Tenderness, Pedal Edema, Tenderness - Back Exam Back Exam: absent: CVA tenderness (L), CVA tenderness (R) - Neurological Exam Neurological Exam: Alert, Awake, Oriented x3 Neuro motor strength exam: Left Upper Extremity: 3, Right Upper Extremity: 3, Left Lower Extremity: 3, Right Lower Extremity: 3 - Psychiatric Exam Psychiatric exam: Depressed - Skin Skin Exam: Dry, Petechiae Assessment and Plan (1) Acidosis Status: Acute (2) Acute renal failure Status: Acute (3) Arterial, arteriole and capillary disease Status: Acute (4) CHF (congestive heart failure) Status: Acute (5) Hyponatremia Status: Resolved (6) Abdominal pain Status: Acute (7) Acute renal insufficiency Status: Acute (8) Breath shortness Status: Acute (9) Cellulitis and abscess of leg Status: Acute
--- NOTE | 2016-06-23 17:11 | CP.PCM.CON ---
History of Present Illness - History of Present Illness History of Present Illness: 86-year-old female with recent hospitalization for UTI presents with cellulitis of LE with associated pain and pruritus. She wzs prescribed antibiotics by instrument lens grinder with no improvement and thus asked to come to the hospital for further evaluation. Patient presented with sepsis , worsenign kidney function, hyponatremic and CHF. Patient had uncontrollable afib, transferred to ICU. found to be in acute respiratory failure, requiring bipap and urgent dialysis. Review of Systems - Review of Systems All systems: reviewed and no additional remarkable complaints except - Respiratory Respiratory: Dyspnea, Chest Congestion Past Patient History - Infectious Disease Hx of Infectious Diseases: None - Past Medical History & Family History Past Medical History?: Yes - Past Social History Smoking Status: Never Smoked Alcohol: None Drugs: Denies - CARDIAC Hx Cardiac Disorders: Yes Hx Hypercholesterolemia: Yes Hx Hypertension: Yes - PULMONARY Hx Respiratory Disorders: No - NEUROLOGICAL Hx Neurological Disorder: No - HEENT Hx HEENT Problems: Yes Hx Cataracts: Yes - RENAL Hx Chronic Kidney Disease: No - ENDOCRINE/METABOLIC Hx Endocrine Disorders: No - HEMATOLOGICAL/ONCOLOGICAL Hx Cirrhosis: No Hx Hepatitis A: No Hx Hepatitis B: No Hx Hepatitis C: No Hx Human Immunodeficiency Virus (HIV): No - INTEGUMENTARY Hx Dermatological Problems: Yes Hx Cellulitis: Yes (jaw) - MUSCULOSKELETAL/RHEUMATOLOGICAL Hx Arthritis: Yes - GASTROINTESTINAL Hx Crohn's Disease: No Hx Diverticulitis: Yes (Diverticulosis) Hx Gall Bladder Disease: Yes Hx Gastritis: Yes Hx Gastroesophageal Reflux: Yes Hx Pancreatitis: No - GENITOURINARY/GYNECOLOGICAL Hx Genitourinary Disorders: No Hx Urinary Tract Infection: Yes (as above) - PSYCHIATRIC Hx Substance Use: No - SURGICAL HISTORY Hx Tonsillectomy: Yes (1933) - ANESTHESIA Hx Anesthesia: Yes Hx Anesthesia Reactions: No Hx Malignant Hyperthermia: No Meds Allergies/Adverse Reactions: Allergies Allergy/AdvReac Type Severity Reaction Status Date / Time No Known Allergies Allergy Verified 06/14/16 23:40 - Medications Medications: Current Medications Albuterol/Ipratropium (Duoneb 3 Mg/0.5 Mg (3 Ml) Ud) 3 ml INH RQ6 [facility] Last Admin: 06/23/16 13:07 Dose: Not Given Amiodarone HCl (Cordarone) 200 mg PO DAILY [facility] Last Admin: 06/23/16 09:23 Dose: Not Given Artificial Tears (Artificial Tears) 1 ml OD DAILY [facility] Last Admin: 06/23/16 09:21 Dose: 1 drop Budesonide (Pulmicort Respules) 0.5 mg INH RQ12 [facility] Last Admin: 06/23/16 08:11 Dose: Not Given Calcitriol (Rocaltrol) 0.25 mcg PO DAILY [facility] Last Admin: 06/23/16 13:39 Dose: Not Given Calcium Acetate (Phoslo) 1,334 mg PO TIDCC [facility] Last Admin: 06/23/16 17:06 Dose: Not Given Diltiazem HCl (Cardizem) 60 mg PO Q8H [facility] Epoetin Reji (Procrit) 3,000 unit IV TTS [facility] Last Admin: 06/22/16 12:06 Dose: 3,000 unit Famotidine (Pepcid) 20 mg PO DAILY [facility] Last Admin: 06/23/16 09:21 Dose: 20 mg Fluconazole (Diflucan) 100 mg PO DAILY [facility] Last Admin: 06/23/16 09:21 Dose: 100 mg Cefepime HCl (Maxipime Iv 1 Gm Premix) 50 mls @ 100 mls/hr IVPB Q24H [facility] Last Admin: 06/23/16 15:29 Dose: 100 mls/hr Albumin Human (Albumin Human 25% (12.5 Gm/50 Ml)) 50 mls @ 50 mls/hr IV Q12 [facility] Last Admin: 06/23/16 13:47 Dose: 50 mls/hr Amiodarone HCl 900 mg/ (Dextrose) 500 mls @ 16.66 mls/hr IV .Q24H ONE; 0.5 MG/ MIN PRN Reason: Protocol Stop: 06/24/16 06:25 Last Admin: 06/23/16 07:33 Dose: 16.66 mls/hr Chromium/Copper/Manganese/Zinc (1 ml/ Amino Acids) 1,001 mls @ 50 mls/hr IV .Q20H2M [facility] Stop: 06/24/16 14:00 Chromium/Copper/Manganese/Zinc 1 ml/ Multivitamins/Vitamin C 10 ml/ Amino Acids 1,011 mls @ 50 mls/hr IV .[id number] [facility] Stop: 06/24/16 18:00 Linezolid (Zyvox 600mg/300ml D5w) 300 mls @ 200 mls/hr IVPB Q12 [facility] Last Admin: 06/23/16 15:29 Dose: 200 mls/hr Tobramycin/Dexamethasone (Tobradex 0.3%-0.1% Opht Oint) 0 appl OU Q6 [facility] Last Admin: 06/23/16 13:57 Dose: 1 % Vitamin A (Vitamin A & D Oint Ud Foilpak) 1 ea TOP DAILY [facility] Last Admin: 06/23/16 09:23 Dose: 1 ea Physical Exam - Head Exam Head Exam: ATRAUMATIC, NORMAL INSPECTION, NORMOCEPHALIC - Eye Exam Eye Exam: EOMI, Normal appearance, PERRL - ENT Exam ENT Exam: Mucous Membranes Moist, Normal Exam - Respiratory Exam Respiratory Exam: Rhonchi - Cardiovascular Exam Cardiovascular Exam: Tachycardia, Irregular Rhythm - GI/Abdominal Exam GI & Abdominal Exam: Normal Bowel Sounds, Soft. absent: Tenderness - Neurological Exam Neurological exam: Alert Results - Vital Signs Recent Vital Signs: Last Vital Signs Temp 98 F 06/23/16 16:00 Pulse 118 H 06/23/16 17:00 Resp 31 H 06/23/16 17:00 BP 108/63 06/23/16 17:00 Pulse Ox 100 06/23/16 17:00 - Labs Result Diagrams: 06/23/16 11:28 06/23/16 11:28 Labs: Laboratory Results - last 24 hr 06/23/16 06/23/16 08:52 11:28 WBC 25.1 H D RBC 2.75 L Hgb 8.2 L Hct 25.4 L MCV 92.2 MCH 30.0 MCHC 32.5 L RDW 16.1 H Plt Count 54 L MPV 13.0 H Neutrophils % (Manual) 79 H Band Neutrophils % 7 H Lymphocytes % (Manual) 9 L Monocytes % (Manual) 4 Eosinophils % (Manual) 1 Platelet Estimate Decreased L Polychromasia Slight Hypochromasia (manual) Slight Anisocytosis (manual) Slight Ovalocytes Slight Puncture Site Rra pCO2 46 H pO2 191 H HCO3 27.5 ABG pH 7.40 ABG Total CO2 29.9 H ABG O2 Saturation 99.4 H ABG Base Excess 3.3 H ABG Hemoglobin 8.0 L ABG Carboxyhemoglobin 1.7 H POC ABG HHb (Measured) 0.6 ABG Methemoglobin 1.1 Dayne Test P A-a O2 Difference 465.0 Respiratory Index 2.4 Hgb O2 Saturation 96.6 FiO2 100.0 Inspiratory BiPAP 12 Expiratory BiPAP 6 Sodium 139 Potassium 4.6 Chloride 96 L Carbon Dioxide 28 Anion Gap 19 BUN 46 H Creatinine 3.5 H Est GFR ( Amer) 15 Est GFR (Non-Af Amer) 12 Random Glucose 104 Calcium 7.1 L Phosphorus 4.7 H Magnesium 1.9 Total Bilirubin 1.4 H AST 27 ALT 38 Alkaline Phosphatase 272 H D Total Protein 4.4 L Albumin 2.4 L D Globulin 1.9 L Albumin/Globulin Ratio 1.3 Assessment & Plan (1) Pleural effusion Assessment and Plan: 86-year-old female with recent hospitalization for UTI presents with cellulitis of LE with associated pain and pruritus. She wzs prescribed antibiotics by instrument lens grinder with no improvement and thus asked to come to the hospital for further evaluation. Patient presented with sepsis , worsenign kidney function, hyponatremic and CHF. Patient had uncontrollable afib, transferred to ICU. found to be in acute respiratory failure, requiring bipap and urgent dialysis. Neuro: Alert and oriented 3 Pulm: Acute respiratory failure with hypoxia secondary to pulmonary congestion. Urgent dialysis to improve pulmonary congestion, will also require right thoracentesis for persistent right pleural effusion. We'll consult interventional radiology for placement of pigtail tomorrow. CV: Hemodynamically stable, A. fib rate controlled with amiodarone drip. Hem: Anemia of chronic disease, on Procrit. Thrombocytopenia possibly secondary to sepsis, transfusing platelets for procedure tomorrow. 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 Renal: Acute on chronic renal failure now requiring dialysis. Patient is currently in pulmonary edema and will require urgent dialysis. Endo: No acute issues GI: Nothing by mouth while on BiPAP ID: Severe sepsis from cellulitis and possible underlying pneumonia, VRE and blood. Continue cefepime, tobramycin and now starting Zyvox. Discussed with ID- Dr Talley. DVT proph - holding anticoagulation with worsening thrombocytopenia, SCDs GI proph - Pepcid hammond for strict I/O's during acute illness Code status - DNR only Crtical Care Time spent 45 minutes Multi-disciplinary rounds were performed with house staff, nursing, speech therapy, respiratory therapy, pharmacy and nutrition with integrated input from the primary team/attending and other consulting services. The documented time is cumulative and includes review of patient data/exams/labs/chart review and examination of the patient on rounds and throughout the day; time is exclusive of any procedures or teaching time. Status: Acute
[2016-06-23] MEDS ORDERED: PPN IV SCH (18:00)
--- NOTE | 2016-06-23 21:26 | CP.PCM.PN ---
Subjective - Date & Time of Evaluation Date of Evaluation: 06/23/16 Time of Evaluation: 20:30 - Subjective Subjective: Transferred to ICU for afib with respiratory compromise Objective - Vital Signs/Intake and Output Vital Signs (last 24 hours): Temp Pulse Resp BP Pulse Ox 98.4 F 110 H 31 H 130/47 L 98 06/23/16 18:50 06/23/16 19:33 06/23/16 18:50 06/23/16 18:50 06/23/16 18:50 Intake and Output: 06/23/16 06/24/16 18:59 06:59 Intake Total 963.4 Output Total 2700 Balance -1736.6 - Medications Medications: Current Medications Albuterol/Ipratropium (Duoneb 3 Mg/0.5 Mg (3 Ml) Ud) 3 ml INH RQ6 [facility] Last Admin: 06/23/16 19:33 Dose: 3 ml Amiodarone HCl (Cordarone) 200 mg PO DAILY [facility] Last Admin: 06/23/16 09:23 Dose: Not Given Artificial Tears (Artificial Tears) 1 ml OD DAILY [facility] Last Admin: 06/23/16 09:21 Dose: 1 drop Budesonide (Pulmicort Respules) 0.5 mg INH RQ12 [facility] Last Admin: 06/23/16 19:33 Dose: Not Given Calcitriol (Rocaltrol) 0.25 mcg PO DAILY [facility] Last Admin: 06/23/16 13:39 Dose: Not Given Calcium Acetate (Phoslo) 1,334 mg PO TIDCC [facility] Last Admin: 06/23/16 17:06 Dose: Not Given Diltiazem HCl (Cardizem) 60 mg PO Q8H [facility] Epoetin Reji (Procrit) 3,000 unit IV TTS [facility] Last Admin: 06/22/16 12:06 Dose: 3,000 unit Famotidine (Pepcid) 20 mg PO DAILY [facility] Last Admin: 06/23/16 09:21 Dose: 20 mg Fluconazole (Diflucan) 100 mg PO DAILY [facility] Last Admin: 06/23/16 09:21 Dose: 100 mg Cefepime HCl (Maxipime Iv 1 Gm Premix) 50 mls @ 100 mls/hr IVPB Q24H [facility] Last Admin: 06/23/16 17:41 Dose: 100 mls/hr Albumin Human (Albumin Human 25% (12.5 Gm/50 Ml)) 50 mls @ 50 mls/hr IV Q12 [facility] Last Admin: 06/23/16 13:47 Dose: 50 mls/hr Amiodarone HCl 900 mg/ (Dextrose) 500 mls @ 16.66 mls/hr IV .Q24H ONE; 0.5 MG/ MIN PRN Reason: Protocol Stop: 06/24/16 06:25 Last Admin: 06/23/16 07:33 Dose: 16.66 mls/hr Chromium/Copper/Manganese/Zinc (1 ml/ Amino Acids) 1,001 mls @ 50 mls/hr IV .Q20H2M [facility] Stop: 06/24/16 14:00 Last Admin: 06/23/16 18:29 Dose: 50 mls/hr Chromium/Copper/Manganese/Zinc (1 ml/ Amino Acids) 1,001 mls @ 50 mls/hr IV .Q20H2M [facility] Stop: 06/24/16 17:59 Linezolid (Zyvox 600mg/300ml D5w) 300 mls @ 200 mls/hr IVPB Q12 [facility] Last Admin: 06/23/16 15:29 Dose: 200 mls/hr Tobramycin/Dexamethasone (Tobradex 0.3%-0.1% Opht Oint) 0 appl OU Q6 [facility] Last Admin: 06/23/16 18:41 Dose: 1 % Vitamin A (Vitamin A & D Oint Ud Foilpak) 1 ea TOP DAILY [facility] Last Admin: 06/23/16 09:23 Dose: 1 ea - Labs Labs: 06/23/16 11:28 06/23/16 11:28 PT 32.4 SECONDS (9.7-12.2) H* 06/21/16 06:40 INR 2.8 06/21/16 06:40 APTT 37 SECONDS (21-34) H 06/21/16 06:40 - Head Exam Head Exam: ATRAUMATIC - Eye Exam Eye Exam: Normal appearance - ENT Exam ENT Exam: Mucous Membranes Dry - Respiratory Exam Respiratory Exam: Decreased Breath Sounds - Cardiovascular Exam Cardiovascular Exam: +S1, +S2 - GI/Abdominal Exam GI & Abdominal Exam: Normal Bowel Sounds - Extremities Exam Extremities Exam: Pedal Edema Assessment and Plan (1) Thrombocytopenia Assessment & Plan: suspect sepsis related heparin Ab and serotonin release assay pending for possible HIT; heparin discontinued transfusion support of plt for possible pigtail catheter placement tomorrow Status: Acute (2) Leukocytosis Assessment & Plan: on antibiotics Status: Acute (3) Anemia Assessment & Plan: chronic disease, renal disease on procrit transfusion support PRN Status: Acute (4) Coagulopathy Assessment & Plan: on anticoagulation Status: Acute
--- NOTE | 2016-06-24 00:13 | CP.PCM.PN ---
Subjective - Date & Time of Evaluation Date of Evaluation: 06/24/16 Time of Evaluation: 00:07 - Subjective Subjective: Patient intubated by me for acute hypoxic resp failure. Patient became tachypnic on Bipap FIO2 100% in low 80's, RR 35/min. Patient DNR, reviewed prior note and D/w daughter Nga, confirmed DNR only and could be intubated. Patient was awake and was informed would need to be intubated. Tube size 7.5, Mac 4 blade, etomidate for sedation, in the larynx viewed blood tinge thick phlegm covering the airway, which was suctioned, cords visualized, tip of tube noticed to enter the cords. Placement confirmed by CO2 detector with color change. Air entry b/l noticed. Tube secured at 22 at the lip. Og tube placed and placement also confirmed. Patient also coughed again blood tinge phlegm which was suction again and and now the ET was clear. Post intubation spo2 100% on 100% fio2, CXR and ABG ordered. Objective - Vital Signs/Intake and Output Vital Signs (last 24 hours): Temp Pulse Resp BP Pulse Ox 98.6 F 96 H 31 H 130/47 L 98 06/23/16 20:00 06/23/16 22:58 06/23/16 18:50 06/23/16 18:50 06/23/16 18:50 Intake and Output: 06/23/16 06/24/16 18:59 06:59 Intake Total 963.4 496.8 Output Total 2700 0 Balance -1736.6 496.8 - Medications Medications: Current Medications Albuterol/Ipratropium (Duoneb 3 Mg/0.5 Mg (3 Ml) Ud) 3 ml INH RQ6 [facility] Last Admin: 06/23/16 19:33 Dose: 3 ml Amiodarone HCl (Cordarone) 200 mg PO DAILY [facility] Last Admin: 06/23/16 09:23 Dose: Not Given Artificial Tears (Artificial Tears) 1 ml OD DAILY [facility] Last Admin: 06/23/16 09:21 Dose: 1 drop Budesonide (Pulmicort Respules) 0.5 mg INH RQ12 [facility] Last Admin: 06/23/16 19:33 Dose: Not Given Calcitriol (Rocaltrol) 0.25 mcg PO DAILY [facility] Last Admin: 06/23/16 13:39 Dose: Not Given Calcium Acetate (Phoslo) 1,334 mg PO TIDCC [facility] Last Admin: 06/23/16 17:06 Dose: Not Given Diltiazem HCl (Cardizem) 60 mg PO Q8H [facility] Epoetin Reji (Procrit) 3,000 unit IV TTS [facility] Last Admin: 06/22/16 12:06 Dose: 3,000 unit Famotidine (Pepcid) 20 mg PO DAILY [facility] Last Admin: 06/23/16 09:21 Dose: 20 mg Fluconazole (Diflucan) 100 mg PO DAILY [facility] Last Admin: 06/23/16 09:21 Dose: 100 mg Cefepime HCl (Maxipime Iv 1 Gm Premix) 50 mls @ 100 mls/hr IVPB Q24H [facility] Last Admin: 06/23/16 17:41 Dose: 100 mls/hr Albumin Human (Albumin Human 25% (12.5 Gm/50 Ml)) 50 mls @ 50 mls/hr IV Q12 [facility] Last Admin: 06/23/16 22:24 Dose: 50 mls/hr Amiodarone HCl 900 mg/ (Dextrose) 500 mls @ 16.66 mls/hr IV .Q24H ONE; 0.5 MG/ MIN PRN Reason: Protocol Stop: 06/24/16 06:25 Last Admin: 06/23/16 07:33 Dose: 16.66 mls/hr Chromium/Copper/Manganese/Zinc (1 ml/ Amino Acids) 1,001 mls @ 50 mls/hr IV .Q20H2M [facility] Stop: 06/24/16 14:00 Last Admin: 06/23/16 18:29 Dose: 50 mls/hr Chromium/Copper/Manganese/Zinc (1 ml/ Amino Acids) 1,001 mls @ 50 mls/hr IV .Q20H2M [facility] Stop: 06/24/16 17:59 Linezolid (Zyvox 600mg/300ml D5w) 300 mls @ 200 mls/hr IVPB Q12 [facility] Last Admin: 06/23/16 22:25 Dose: 200 mls/hr Tobramycin/Dexamethasone (Tobradex 0.3%-0.1% Opht Oint) 0 appl OU Q6 [facility] Last Admin: 06/23/16 18:41 Dose: 1 % Vitamin A (Vitamin A & D Oint Ud Foilpak) 1 ea TOP DAILY [facility] Last Admin: 06/23/16 09:23 Dose: 1 ea - Labs Labs: 06/23/16 11:28 06/23/16 11:28 PT 32.4 SECONDS (9.7-12.2) H* 06/21/16 06:40 INR 2.8 06/21/16 06:40 APTT 37 SECONDS (21-34) H 06/21/16 06:40
[2016-06-24 00:27] LABS: ABG ALLEN TEST POS; ABG MECHANICAL RATE 14; ARTERIAL BLOOD HGB O2 SAT 96.8 % (95.0-98.0); ATERIAL BLOOD GAS PEEP 5; CARBOXYHEMOGLOBIN 1.5 % (0.5-1.5); DRAW SITE R; HHB 0.7 % (0.0-5.0)
[2016-06-24] MEDS: Albuterol-Ipratrop 3 mg / 0.5 (3 ml) UD INH SCH ×4 (01:12→20:23)
[2016-06-24] MEDS: Tobramycin/Dexamethasone OPHT OINT OU SCH ×4 (02:24→18:28)
[2016-06-24 06:01] LABS: ABG ALLEN TEST POS; ABG MECHANICAL RATE 14; ARTERIAL BLOOD HGB O2 SAT 96.1 % (95.0-98.0); ATERIAL BLOOD GAS PEEP 5; CARBOXYHEMOGLOBIN 1.9 % (0.5-1.5); DRAW SITE RR; HHB 1.1 % (0.0-5.0); METHEMOGLOBIN 0.9 % (0.0-3.0)
[2016-06-24 06:38] LABS: BASO # 0.2 K/uL (0.0-0.2); EOS % 0.2 % (0.0-4.0); HEMATOCRIT 22.8 % (34.0-47.0)
[2016-06-24 06:41] LABS: POTASSIUM 4.6 mmol/L (3.6-5.2)
[2016-06-24 06:43] LABS: BILIRUBIN,TOTAL 1.5 mg/dL (0.2-1.3); TOTAL PROTEIN 4.3 g/dL (6.3-8.3)
[2016-06-24 06:44] LABS: CALCIUM 7.1 mg/dl (8.6-10.4); MAGNESIUM 1.9 mg/dL (1.6-2.3); PHOSPHOROUS 4.1 mg/dL (2.5-4.5)
[2016-06-24 06:56] LABS: BASO % 1.6 % (0.0-2.0); LYMPH # 3.2 K/uL (1.0-4.3); MEAN CELL VOLUME 92.8 fL (81.0-99.0); MEAN CORPUSCULAR HGB CONC 32.4 g/dL (33.0-37.0); MEAN PLATELET VOLUME 11.3 fL (7.2-11.7); MONO # 0.4 K/uL (0.0-0.8); MONO % 2.9 % (0.0-10.0); NRBC % 0.1 % (0.0-2.0); PLATELET COUNT 152 K/uL (130-400); RED CELL DISTRIBUTION WIDTH 16.4 % (11.5-14.5); WHITE BLOOD COUNT 13.9 K/uL (4.8-10.8)
[2016-06-24 07:00] LABS: INR 4.7
[2016-06-24] MEDS: Budesonide 0.5 mg/2 ml Inhal Susp UD INH SCH (07:57)
--- NOTE | 2016-06-24 08:10 | CP.CCUPN ---
<Shanel Acevedo - Last Filed: 06/24/16 08:13> CCU Subjective - Physician Review Subjective (Free Text): 06/17/16 18:05 Patient seen and examined in no acute distress. Patient denies shortness of breath however wheezing bilaterally. Patient is awake and responsive denying pain at this time. Patient admits to some weakness. She denies subjective fevers or chills, nausea, vomiting, diarrhea, constipation, headaches, chest pain, urinary changes, paresthesias at this time. 06/18/16 15:15 Patient seen and examined in no acute distress. There were no acute events overnight per nursing. Patient is s/p day 1 R IJ permacath placement. Patient is awake, alert and responsive denying pain at this time. Patient admits to some weakness. She denies subjective fevers or chills, dyspnea, nausea, vomiting , diarrhea, constipation, headaches, chest pain, cough or paresthesias at this time. 06/18/16 15:18 CCU Objective - Vital Signs / Intake & Output Vital Signs (Last 4 hours): Vital Signs Pulse Resp BP Pulse Ox 06/24/16 07:00 109 H 18 100/53 L 99 06/24/16 06:00 111 H 16 85/40 L 98 06/24/16 05:00 111 H 18 110/56 L 97 Intake and Output (Last 8hrs): Intake & Output 06/23/16 06/24/16 06/24/16 22:59 06:59 14:59 Intake Total 1226.6 553.0 Output Total 2700 0 Balance -1473.4 553.0 Weight 178 lb 9.191 oz Intake: Intake, IV Amount 763.6 553.0 Right Hand 50.1 133.6 Left Wrist 230 19.4 Left Hand 83.5 Right Forearm 400 400 Blood Product 463 Apheresis Plts Acda Lr 233 2nd Con Unit [id number] Output: Urine 0 0 Urine, Voided 0 0 Stool 0 0 Other 2700 Other: # Bowel Movements 0 - Physical Exam Head: Positive for: Atraumatic, Normocephalic Pupils: Positive for: PERRL Conjunctiva: Positive for: Normal Mouth: Positive for: Moist Mucous Membranes Nose (External): Positive for: Atraumatic Neck: Positive for: Normal Range of Motion Respiratory/Chest: Positive for: Clear to Auscultation, Wheezes. Negative for: Respiratory Distress Cardiovascular: Positive for: Murmurs, Normal S1, S2 Abdomen: Positive for: Normal Bowel Sounds. Negative for: Tenderness, Distention Back: Negative for: CVA Tenderness Upper Extremity: Positive for: Normal Inspection, Other (Permacath dressing C/D/ I, non TTP, no erythema or hematoma noted) Lower Extremity: Positive for: Edema, Erythema, Capillary Refill < 2 s Neurological: Positive for: Speech Normal, Motor Func Grossly Intact Skin: Positive for: Warm, Dry, Rashes (B\L LE) Psychiatric: Positive for: Alert, Oriented x 3, Normal Insight - Medications Active Medications: Active Medications Generic Name Dose Route Start Last Admin Trade Name Freq PRN Reason Stop Dose Admin Albuterol/Ipratropium 3 ml 06/20/16 20:00 06/24/16 07:57 Duoneb 3 Mg/0.5 Mg (3 Ml) Ud INH 3 ml RQ6 UTE Administration Amiodarone HCl 200 mg 06/20/16 10:00 06/23/16 09:23 Cordarone PO Not Given DAILY UTE Artificial Tears 1 ml 06/20/16 16:15 06/23/16 09:21 Artificial Tears OD 1 drop DAILY UTE Administration Budesonide 0.5 mg 06/20/16 20:00 06/24/16 07:57 Pulmicort Respules INH 0.5 mg RQ12 UTE Administration Calcitriol 0.25 mcg 06/17/16 17:45 06/23/16 13:39 Rocaltrol PO Not Given DAILY UTE Calcium Acetate 1,334 mg 06/17/16 10:21 06/23/16 17:06 Phoslo PO Not Given TIDCC UTE Diltiazem HCl 60 mg 06/23/16 06:37 Cardizem PO Q8H UTE Epoetin Reji 3,000 unit 06/20/16 13:45 06/22/16 12:06 Procrit IV 3,000 unit TTS UTE Administration Famotidine 20 mg 06/21/16 10:00 06/23/16 09:21 Pepcid PO 20 mg DAILY UTE Administration Fluconazole 100 mg 06/17/16 12:30 06/23/16 09:21 Diflucan PO 100 mg DAILY UTE Administration Cefepime HCl 50 mls @ 100 mls/hr 06/16/16 13:30 06/23/16 17:41 Maxipime Iv 1 Gm Premix IVPB 100 mls/hr Q24H UTE Administration Albumin Human 50 mls @ 50 mls/hr 06/21/16 14:00 06/23/16 22:24 Albumin Human 25% (12.5 Gm/50 Ml) IV 50 mls/hr Q12 UTE Administration Chromium/Copper/Manganese/Zinc 1,001 mls @ 50 mls/hr 06/23/16 18:00 06/23/16 18 :29 1 ml/ Amino Acids IV 06/24/16 14:00 50 mls/hr .Q20H2M UTE Administration Chromium/Copper/Manganese/Zinc 1,001 mls @ 50 mls/hr 06/24/16 14:00 1 ml/ Amino Acids IV 06/24/16 17:59 .Q20H2M UTE Linezolid 300 mls @ 200 mls/hr 06/23/16 11:30 06/23/16 22:25 Zyvox 600mg/300ml D5w IVPB 200 mls/hr Q12 UTE Administration Propofol 100 mls @ 2.422 mls/hr 06/24/16 00:52 06/24/16 01:17 Diprivan IV 2.422 mls/hr .Q24H PRN Administration TITRATE PER MD ORDER Protocol 5 MCG/KG/MIN Tobramycin/Dexamethasone 0 appl 06/21/16 00:00 06/24/16 07:35 Tobradex 0.3%-0.1% Opht Oint OU 1 % Q6 UTE Administration Vitamin A 1 ea 06/19/16 16:00 06/23/16 09:23 Vitamin A & D Oint Ud Foilpak TOP 1 ea DAILY UTE Administration - Patient Studies Lab Studies: Microbiology Studies 06/20/16 13:45 Blood Culture - Preliminary Blood-Venous NO GROWTH AFTER 3 DAYS 06/20/16 14:15 S.aureus & Coag-Neg Staph PNA FISH - Final Blood-Venous Blood Culture - Final Vancomycin Resistant E.faecium Gram Stain - Final Lab Studies 06/24/16 06/24/16 06/24/16 Range/Units 06:21 05:11 00:19 WBC 13.9 H (4.8-10.8) K/uL RBC 2.46 L (3.80-5.20) Mil/uL Hgb 7.4 L (11.0-16.0) g/dL Hct 22.8 L (34.0-47.0) % MCV 92.8 (81.0-99.0) fL MCH 30.0 (27.0-31.0) pg MCHC 32.4 L (33.0-37.0) g/dL RDW 16.4 H (11.5-14.5) % Plt Count 152 (130-400) K/uL MPV 11.3 (7.2-11.7) fL Neut % (Auto) 72.3 (50.0-75.0) % Lymph % (Auto) 23.0 (20.0-40.0) % Taylor % (Auto) 2.9 (0.0-10.0) % Eos % (Auto) 0.2 (0.0-4.0) % Baso % (Auto) 1.6 (0.0-2.0) % Neut # 10.0 H (1.8-7.0) K/uL Lymph # 3.2 (1.0-4.3) K/uL Taylor # 0.4 (0.0-0.8) K/uL Eos # 0.0 (0.0-0.7) K/uL Baso # 0.2 (0.0-0.2) K/uL Neutrophils % (Manual) (50-75) % Band Neutrophils % (0-2) % Lymphocytes % (Manual) (20-40) % Monocytes % (Manual) (0-10) % Eosinophils % (Manual) (0-4) % Platelet Estimate (NORMAL) Polychromasia Hypochromasia (manual) Anisocytosis (manual) Ovalocytes PT 55.6 H* D (9.7-12.2) SECONDS INR 4.7 D APTT 59 H D (21-34) SECONDS Puncture Site Rr R pCO2 37 58 H (35-45) mm/Hg pO2 78 L 263 H (80-100) mm/Hg HCO3 30.2 H 29.9 H (21-28) mmol/L ABG pH 7.52 H 7.36 (7.35-7.45) ABG Total CO2 31.3 H 34.6 H (22-28) mmol/L ABG O2 Saturation 98.9 H 99.3 H (95-98) % ABG Base Excess 6.8 H 6.4 H (-2.0-3.0) mmol/L ABG Hemoglobin 7.1 L 7.9 L (11.7-17.4) g/dL ABG Carboxyhemoglobin 1.9 H 1.5 (0.5-1.5) % POC ABG HHb (Measured) 1.1 0.7 (0.0-5.0) % ABG Methemoglobin 0.9 1.0 (0.0-3.0) % Dayne Test Pos Pos A-a O2 Difference 304.0 378.0 mm/Hg Respiratory Index 3.9 1.4 Hgb O2 Saturation 96.1 96.8 (95.0-98.0) % Mechanical Rate 14 14 FiO2 60.0 100.0 % Tidal Volume 500 500 PEEP 5 5 Inspiratory BiPAP Expiratory BiPAP Sodium 136 (132-148) mmol/L Potassium 4.6 (3.6-5.2) mmol/L Chloride 95 L (98-107) mmol/L Carbon Dioxide 29 (22-30) mmol/L Anion Gap 17 (10-20) BUN 38 H (7-17) mg/dL Creatinine 3.0 H (0.7-1.2) MG/DL Est GFR ( Amer) 18 Est GFR (Non-Af Amer) 15 Random Glucose 155 H (65-105) mg/dL Calcium 7.1 L (8.6-10.4) mg/dl Phosphorus 4.1 (2.5-4.5) mg/dL Magnesium 1.9 (1.6-2.3) mg/dL Total Bilirubin 1.5 H (0.2-1.3) mg/dL AST 27 (14-36) U/L ALT 40 (9-52) U/L Alkaline Phosphatase 212 H D (38-126) U/L Total Protein 4.3 L (6.3-8.3) g/dL Albumin 2.2 L (3.5-5.0) g/dL Globulin 2.1 L (2.2-3.9) gm/dL Albumin/Globulin Ratio 1.0 (1.0-2.1) 06/23/16 06/23/16 Range/Units 11:28 08:52 WBC 25.1 H D (4.8-10.8) K/uL RBC 2.75 L (3.80-5.20) Mil/uL Hgb 8.2 L (11.0-16.0) g/dL Hct 25.4 L (34.0-47.0) % MCV 92.2 (81.0-99.0) fL MCH 30.0 (27.0-31.0) pg MCHC 32.5 L (33.0-37.0) g/dL RDW 16.1 H (11.5-14.5) % Plt Count 54 L (130-400) K/uL MPV 13.0 H (7.2-11.7) fL Neut % (Auto) (50.0-75.0) % Lymph % (Auto) (20.0-40.0) % Taylor % (Auto) (0.0-10.0) % Eos % (Auto) (0.0-4.0) % Baso % (Auto) (0.0-2.0) % Neut # (1.8-7.0) K/uL Lymph # (1.0-4.3) K/uL Taylor # (0.0-0.8) K/uL Eos # (0.0-0.7) K/uL Baso # (0.0-0.2) K/uL Neutrophils % (Manual) 79 H (50-75) % Band Neutrophils % 7 H (0-2) % Lymphocytes % (Manual) 9 L (20-40) % Monocytes % (Manual) 4 (0-10) % Eosinophils % (Manual) 1 (0-4) % Platelet Estimate Decreased L (NORMAL) Polychromasia Slight Hypochromasia (manual) Slight Anisocytosis (manual) Slight Ovalocytes Slight PT (9.7-12.2) SECONDS INR APTT (21-34) SECONDS Puncture Site Rra pCO2 46 H (35-45) mm/Hg pO2 191 H (80-100) mm/Hg HCO3 27.5 (21-28) mmol/L ABG pH 7.40 (7.35-7.45) ABG Total CO2 29.9 H (22-28) mmol/L ABG O2 Saturation 99.4 H (95-98) % ABG Base Excess 3.3 H (-2.0-3.0) mmol/L ABG Hemoglobin 8.0 L (11.7-17.4) g/dL ABG Carboxyhemoglobin 1.7 H (0.5-1.5) % POC ABG HHb (Measured) 0.6 (0.0-5.0) % ABG Methemoglobin 1.1 (0.0-3.0) % Dayne Test P A-a O2 Difference 465.0 mm/Hg Respiratory Index 2.4 Hgb O2 Saturation 96.6 (95.0-98.0) % Mechanical Rate FiO2 100.0 % Tidal Volume PEEP Inspiratory BiPAP 12 Expiratory BiPAP 6 Sodium 139 (132-148) mmol/L Potassium 4.6 (3.6-5.2) mmol/L Chloride 96 L (98-107) mmol/L Carbon Dioxide 28 (22-30) mmol/L Anion Gap 19 (10-20) BUN 46 H (7-17) mg/dL Creatinine 3.5 H (0.7-1.2) MG/DL Est GFR ( Amer) 15 Est GFR (Non-Af Amer) 12 Random Glucose 104 (65-105) mg/dL Calcium 7.1 L (8.6-10.4) mg/dl Phosphorus 4.7 H (2.5-4.5) mg/dL Magnesium 1.9 (1.6-2.3) mg/dL Total Bilirubin 1.4 H (0.2-1.3) mg/dL AST 27 (14-36) U/L ALT 38 (9-52) U/L Alkaline Phosphatase 272 H D (38-126) U/L Total Protein 4.4 L (6.3-8.3) g/dL Albumin 2.4 L D (3.5-5.0) g/dL Globulin 1.9 L (2.2-3.9) gm/dL Albumin/Globulin Ratio 1.3 (1.0-2.1) Laboratory Results - last 24 hr 06/23/16 06/23/16 06/24/16 08:52 11:28 00:19 WBC 25.1 H D RBC 2.75 L Hgb 8.2 L Hct 25.4 L MCV 92.2 MCH 30.0 MCHC 32.5 L RDW 16.1 H Plt Count 54 L MPV 13.0 H Neut % (Auto) Lymph % (Auto) Taylor % (Auto) Eos % (Auto) Baso % (Auto) Neut # Lymph # Taylor # Eos # Baso # Neutrophils % (Manual) 79 H Band Neutrophils % 7 H Lymphocytes % (Manual) 9 L Monocytes % (Manual) 4 Eosinophils % (Manual) 1 Platelet Estimate Decreased L Polychromasia Slight Hypochromasia (manual) Slight Anisocytosis (manual) Slight Ovalocytes Slight PT INR APTT Puncture Site Rra R pCO2 46 H 58 H pO2 191 H 263 H HCO3 27.5 29.9 H ABG pH 7.40 7.36 ABG Total CO2 29.9 H 34.6 H ABG O2 Saturation 99.4 H 99.3 H ABG Base Excess 3.3 H 6.4 H ABG Hemoglobin 8.0 L 7.9 L ABG Carboxyhemoglobin 1.7 H 1.5 POC ABG HHb (Measured) 0.6 0.7 ABG Methemoglobin 1.1 1.0 Dayne Test P Pos A-a O2 Difference 465.0 378.0 Respiratory Index 2.4 1.4 Hgb O2 Saturation 96.6 96.8 Mechanical Rate 14 FiO2 100.0 100.0 Tidal Volume 500 PEEP 5 Inspiratory BiPAP 12 Expiratory BiPAP 6 Sodium 139 Potassium 4.6 Chloride 96 L Carbon Dioxide 28 Anion Gap 19 BUN 46 H Creatinine 3.5 H Est GFR ( Amer) 15 Est GFR (Non-Af Amer) 12 Random Glucose 104 Calcium 7.1 L Phosphorus 4.7 H Magnesium 1.9 Total Bilirubin 1.4 H AST 27 ALT 38 Alkaline Phosphatase 272 H D Total Protein 4.4 L Albumin 2.4 L D Globulin 1.9 L Albumin/Globulin Ratio 1.3 06/24/16 06/24/16 05:11 06:21 WBC 13.9 H RBC 2.46 L Hgb 7.4 L Hct 22.8 L MCV 92.8 MCH 30.0 MCHC 32.4 L RDW 16.4 H Plt Count 152 MPV 11.3 Neut % (Auto) 72.3 Lymph % (Auto) 23.0 Taylor % (Auto) 2.9 Eos % (Auto) 0.2 Baso % (Auto) 1.6 Neut # 10.0 H Lymph # 3.2 Taylor # 0.4 Eos # 0.0 Baso # 0.2 Neutrophils % (Manual) Band Neutrophils % Lymphocytes % (Manual) Monocytes % (Manual) Eosinophils % (Manual) Platelet Estimate Polychromasia Hypochromasia (manual) Anisocytosis (manual) Ovalocytes PT 55.6 H* D INR 4.7 D APTT 59 H D Puncture Site Rr pCO2 37 pO2 78 L HCO3 30.2 H ABG pH 7.52 H ABG Total CO2 31.3 H ABG O2 Saturation 98.9 H ABG Base Excess 6.8 H ABG Hemoglobin 7.1 L ABG Carboxyhemoglobin 1.9 H POC ABG HHb (Measured) 1.1 ABG Methemoglobin 0.9 Dayne Test Pos A-a O2 Difference 304.0 Respiratory Index 3.9 Hgb O2 Saturation 96.1 Mechanical Rate 14 FiO2 60.0 Tidal Volume 500 PEEP 5 Inspiratory BiPAP Expiratory BiPAP Sodium 136 Potassium 4.6 Chloride 95 L Carbon Dioxide 29 Anion Gap 17 BUN 38 H Creatinine 3.0 H Est GFR ( Amer) 18 Est GFR (Non-Af Amer) 15 Random Glucose 155 H Calcium 7.1 L Phosphorus 4.1 Magnesium 1.9 Total Bilirubin 1.5 H AST 27 ALT 40 Alkaline Phosphatase 212 H D Total Protein 4.3 L Albumin 2.2 L Globulin 2.1 L Albumin/Globulin Ratio 1.0 Critical Care Progress Note - Nutrition Nutrition: Nutrition Category Date Time Status Renal Diet [DIET] Diets 06/21/16 Breakfast Active Assessment/Plan - Assessment and Plan (Free Text) Assessment: 86-year-old female with recent hospitalization for UTI presents with cellulitis of LE with associated pain and pruritus. She was prescribed antibiotics by ux research associate with no improvement and thus asked to come to the hospital for further evaluation. Patient presented with sepsis , worsening kidney function, hyponatremic and CHF. Patient had uncontrollable afib event and transferred to ICU. Pt found to be in acute respiratory failure, requiring bipap and urgent dialysis. Plan: Neuro: Alert and oriented 3 Pulm: Acute respiratory failure with hypoxia secondary to pulmonary congestion. Urgent dialysis to improve pulmonary congestion, will also require right thoracentesis for persistent right pleural effusion. IR on board CV: Hemodynamically stable, A. fib rate controlled with amiodarone drip. Hem: Anemia of chronic disease, on Procrit. Thrombocytopenia possibly secondary to sepsis, transfused platelets for procedure 06/24. 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 Renal: Acute on chronic renal failure now requiring dialysis. : [facility] for strict ins and outs Endo: Euglycemic . Cont to monitor GI: Nothing by mouth while on BiPAP ID: Dec in white count. Severe sepsis from cellulitis and possible underlying pneumonia, VRE and blood. Continue cefepime, tobramycin and now starting Zyvox. Discussed with ID-Dr Talley. DVT proph - holding anticoagulation with worsening thrombocytopenia, SCDs GI proph - Pepcid Code status - DNR only as confirmed by daughter <Addison Gaviria - Last Filed: 06/24/16 15:28> CCU Subjective - Physician Review Events Since Last Encounter (Free Text): 06/24/16 15:25 Patient's overall condition got intubated last night. She developed a respiratory distress, and also a rapid ventricular rate with the atrial fibrillation. Initially patient was placed on BiPAP, but as the condition got worse patient was intubated. Patient is currently on ventilator. Sedated. Opening her eyes. On examination: Vital signs stable somewhat, but is still tachycardia noted, on amiodarone Chest good air entry bilaterally regular heart sound edema bilaterally noted Patient's labs reviewed Hemoglobin level is dropping at this time. Blood-tinged secretions from the endotracheal tube noted. No further active bleeding noted, but ecchymosis noted. PT/INR is elevated. Chest x-ray showing congestive changes, possible aspiration pneumonia Assessment and recommendation: 86-year-old female admitted to the hospital with the renal insufficiency, sepsis , cellulitis, hyponatremia. Fluid overload. Acute and chronic renal insufficiency currently on dialysis. But currently getting complicated with the sepsis, possible fluid overload, atrial fibrillation with rapid ventricular rate, and coagulopathy, possible DIC. We'll speak to the family regarding the transfusion, and the possible terminal condition treatment CCU Objective - Vital Signs / Intake & Output Vital Signs (Last 4 hours): Vital Signs Temp Pulse Resp BP Pulse Ox 06/24/16 15:00 74 17 118/95 H 99 06/24/16 14:00 76 17 124/46 L 99 06/24/16 13:00 82 20 124/46 L 98 06/24/16 12:00 99.3 F 78 16 119/47 L 97 Intake and Output (Last 8hrs): Intake & Output 06/24/16 06/24/16 06/24/16 06:59 14:59 22:59 Intake Total 553.0 656.2 24.0 Output Total 0 0 0 Balance 553.0 656.2 24.0 Weight 178 lb 9.191 oz Intake: Intake, IV Amount 553.0 656.2 24.0 Right Hand 133.6 16.7 Left Wrist 19.4 Right Forearm 400 500 Right Forearm 2 56.0 7.3 right forearm 3 83.5 16.7 Output: Urine 0 0 Urine, Voided 0 0 Stool 0 0 0 Other: # Bowel Movements 0 - Medications Active Medications: Active Medications Generic Name Dose Route Start Last Admin Trade Name Freq PRN Reason Stop Dose Admin Albuterol/Ipratropium 3 ml 06/20/16 20:00 06/24/16 13:26 Duoneb 3 Mg/0.5 Mg (3 Ml) Ud INH 3 ml RQ6 UTE Administration Artificial Tears 1 ml 06/20/16 16:15 06/24/16 09:50 Artificial Tears OD 1 drop DAILY UTE Administration Calcitriol 0.25 mcg 06/17/16 17:45 06/24/16 09:54 Rocaltrol PO 0.25 mcg DAILY UTE Administration Calcium Acetate 1,334 mg 06/17/16 10:21 06/24/16 14:23 Phoslo PO 1,334 mg TIDCC UTE Administration Diltiazem HCl 60 mg 06/23/16 06:37 Cardizem PO Q8H UTE Epoetin Reji 10,000 unit 06/24/16 11:30 Procrit IV TTS UTE Famotidine 20 mg 06/21/16 10:00 06/24/16 09:51 Pepcid PO 20 mg DAILY UTE Administration Fluconazole 100 mg 06/17/16 12:30 06/24/16 09:51 Diflucan PO 100 mg DAILY UTE Administration Cefepime HCl 50 mls @ 100 mls/hr 06/16/16 13:30 06/24/16 14:22 Maxipime Iv 1 Gm Premix IVPB 100 mls/hr Q24H UTE Administration Linezolid 300 mls @ 200 mls/hr 06/23/16 11:30 06/24/16 09:52 Zyvox 600mg/300ml D5w IVPB 200 mls/hr Q12 UTE Administration Propofol 100 mls @ 2.422 mls/hr 06/24/16 00:52 06/24/16 14:26 Diprivan IV 4.844 mls/hr .Q24H PRN Administration TITRATE PER MD ORDER Protocol 5 MCG/KG/MIN Amiodarone HCl 900 mg/ 500 mls @ 16.66 mls/hr 06/24/16 14:43 Dextrose IV 06/25/16 14:42 .Q24H ONE Protocol 0.5 MG/MIN Tobramycin/Dexamethasone 0 appl 06/21/16 00:00 06/24/16 14:24 Tobradex 0.3%-0.1% Opht Oint OU 1 % Q6 UTE Administration Vitamin A 1 ea 06/19/16 16:00 06/24/16 09:51 Vitamin A & D Oint Ud Foilpak TOP 1 ea DAILY UTE Administration - Patient Studies Lab Studies: Microbiology Studies 06/20/16 13:45 Blood Culture - Preliminary Blood-Venous NO GROWTH AFTER 3 DAYS Lab Studies 06/24/16 06/24/16 06/24/16 Range/Units 12:38 06:21 05:11 WBC 13.0 H 13.9 H (4.8-10.8) K/uL RBC 2.35 L 2.46 L (3.80-5.20) Mil/uL Hgb 6.9 L 7.4 L (11.0-16.0) g/dL Hct 21.8 L 22.8 L (34.0-47.0) % MCV 92.5 92.8 (81.0-99.0) fL MCH 29.5 30.0 (27.0-31.0) pg MCHC 31.9 L 32.4 L (33.0-37.0) g/dL RDW 16.4 H 16.4 H (11.5-14.5) % Plt Count 162 152 (130-400) K/uL MPV 10.3 11.3 (7.2-11.7) fL Neut % (Auto) 83.8 H 72.3 (50.0-75.0) % Lymph % (Auto) 12.3 L 23.0 (20.0-40.0) % Taylor % (Auto) 3.0 2.9 (0.0-10.0) % Eos % (Auto) 0.4 0.2 (0.0-4.0) % Baso % (Auto) 0.5 1.6 (0.0-2.0) % Neut # 10.9 H 10.0 H (1.8-7.0) K/uL Lymph # 1.6 3.2 (1.0-4.3) K/uL Taylor # 0.4 0.4 (0.0-0.8) K/uL Eos # 0.0 0.0 (0.0-0.7) K/uL Baso # 0.1 0.2 (0.0-0.2) K/uL Neutrophils % (Manual) 68 (50-75) % Band Neutrophils % 4 H (0-2) % Lymphocytes % (Manual) 17 L (20-40) % Monocytes % (Manual) 9 (0-10) % Myelocytes % 2 H (0-0) % Differential Comment Platelet Estimate Normal (NORMAL) Polychromasia Slight Hypochromasia (manual) Slight Anisocytosis (manual) Slight Ovalocytes Slight PT 48.9 H* D 55.6 H* D (9.7-12.2) SECONDS INR 4.2 4.7 D APTT 54 H D 59 H D (21-34) SECONDS Puncture Site Rr pCO2 37 (35-45) mm/Hg pO2 78 L (80-100) mm/Hg HCO3 30.2 H (21-28) mmol/L ABG pH 7.52 H (7.35-7.45) ABG Total CO2 31.3 H (22-28) mmol/L ABG O2 Saturation 98.9 H (95-98) % ABG Base Excess 6.8 H (-2.0-3.0) mmol/L ABG Hemoglobin 7.1 L (11.7-17.4) g/dL ABG Carboxyhemoglobin 1.9 H (0.5-1.5) % POC ABG HHb (Measured) 1.1 (0.0-5.0) % ABG Methemoglobin 0.9 (0.0-3.0) % Dayne Test Pos A-a O2 Difference 304.0 mm/Hg Respiratory Index 3.9 Hgb O2 Saturation 96.1 (95.0-98.0) % Mechanical Rate 14 FiO2 60.0 % Tidal Volume 500 PEEP 5 Sodium 136 (132-148) mmol/L Potassium 4.6 (3.6-5.2) mmol/L Chloride 95 L (98-107) mmol/L Carbon Dioxide 29 (22-30) mmol/L Anion Gap 17 (10-20) BUN 38 H (7-17) mg/dL Creatinine 3.0 H (0.7-1.2) MG/DL Est GFR ( Amer) 18 Est GFR (Non-Af Amer) 15 Random Glucose 155 H (65-105) mg/dL Calcium 7.1 L (8.6-10.4) mg/dl Phosphorus 4.1 (2.5-4.5) mg/dL Magnesium 1.9 (1.6-2.3) mg/dL Total Bilirubin 1.5 H (0.2-1.3) mg/dL AST 27 (14-36) U/L ALT 40 (9-52) U/L Alkaline Phosphatase 212 H D (38-126) U/L Total Protein 4.3 L (6.3-8.3) g/dL Albumin 2.2 L (3.5-5.0) g/dL Globulin 2.1 L (2.2-3.9) gm/dL Albumin/Globulin Ratio 1.0 (1.0-2.1) Complement C3 < 40.0 L (88.0-165.0) mg/dL Complement C4 < 8.0 L (14.0-44.0) mg/dL 06/24/16 Range/Units 00:19 WBC (4.8-10.8) K/uL RBC (3.80-5.20) Mil/uL Hgb (11.0-16.0) g/dL Hct (34.0-47.0) % MCV (81.0-99.0) fL MCH (27.0-31.0) pg MCHC (33.0-37.0) g/dL RDW (11.5-14.5) % Plt Count (130-400) K/uL MPV (7.2-11.7) fL Neut % (Auto) (50.0-75.0) % Lymph % (Auto) (20.0-40.0) % Taylor % (Auto) (0.0-10.0) % Eos % (Auto) (0.0-4.0) % Baso % (Auto) (0.0-2.0) % Neut # (1.8-7.0) K/uL Lymph # (1.0-4.3) K/uL Taylor # (0.0-0.8) K/uL Eos # (0.0-0.7) K/uL Baso # (0.0-0.2) K/uL Neutrophils % (Manual) (50-75) % Band Neutrophils % (0-2) % Lymphocytes % (Manual) (20-40) % Monocytes % (Manual) (0-10) % Myelocytes % (0-0) % Differential Comment Platelet Estimate (NORMAL) Polychromasia Hypochromasia (manual) Anisocytosis (manual) Ovalocytes PT (9.7-12.2) SECONDS INR APTT (21-34) SECONDS Puncture Site R pCO2 58 H (35-45) mm/Hg pO2 263 H (80-100) mm/Hg HCO3 29.9 H (21-28) mmol/L ABG pH 7.36 (7.35-7.45) ABG Total CO2 34.6 H (22-28) mmol/L ABG O2 Saturation 99.3 H (95-98) % ABG Base Excess 6.4 H (-2.0-3.0) mmol/L ABG Hemoglobin 7.9 L (11.7-17.4) g/dL ABG Carboxyhemoglobin 1.5 (0.5-1.5) % POC ABG HHb (Measured) 0.7 (0.0-5.0) % ABG Methemoglobin 1.0 (0.0-3.0) % Dayne Test Pos A-a O2 Difference 378.0 mm/Hg Respiratory Index 1.4 Hgb O2 Saturation 96.8 (95.0-98.0) % Mechanical Rate 14 FiO2 100.0 % Tidal Volume 500 PEEP 5 Sodium (132-148) mmol/L Potassium (3.6-5.2) mmol/L Chloride (98-107) mmol/L Carbon Dioxide (22-30) mmol/L Anion Gap (10-20) BUN (7-17) mg/dL Creatinine (0.7-1.2) MG/DL Est GFR ( Amer) Est GFR (Non-Af Amer) Random Glucose (65-105) mg/dL Calcium (8.6-10.4) mg/dl Phosphorus (2.5-4.5) mg/dL Magnesium (1.6-2.3) mg/dL Total Bilirubin (0.2-1.3) mg/dL AST (14-36) U/L ALT (9-52) U/L Alkaline Phosphatase (38-126) U/L Total Protein (6.3-8.3) g/dL Albumin (3.5-5.0) g/dL Globulin (2.2-3.9) gm/dL Albumin/Globulin Ratio (1.0-2.1) Complement C3 (88.0-165.0) mg/dL Complement C4 (14.0-44.0) mg/dL Laboratory Results - last 24 hr 06/24/16 06/24/16 06/24/16 00:19 05:11 06:21 WBC 13.9 H RBC 2.46 L Hgb 7.4 L Hct 22.8 L MCV 92.8 MCH 30.0 MCHC 32.4 L RDW 16.4 H Plt Count 152 MPV 11.3 Neut % (Auto) 72.3 Lymph % (Auto) 23.0 Taylor % (Auto) 2.9 Eos % (Auto) 0.2 Baso % (Auto) 1.6 Neut # 10.0 H Lymph # 3.2 Taylor # 0.4 Eos # 0.0 Baso # 0.2 Neutrophils % (Manual) 68 Band Neutrophils % 4 H Lymphocytes % (Manual) 17 L Monocytes % (Manual) 9 Myelocytes % 2 H Differential Comment Platelet Estimate Normal Polychromasia Slight Hypochromasia (manual) Slight Anisocytosis (manual) Slight Ovalocytes Slight PT 55.6 H* D INR 4.7 D APTT 59 H D Puncture Site R Rr pCO2 58 H 37 pO2 263 H 78 L HCO3 29.9 H 30.2 H ABG pH 7.36 7.52 H ABG Total CO2 34.6 H 31.3 H ABG O2 Saturation 99.3 H 98.9 H ABG Base Excess 6.4 H 6.8 H ABG Hemoglobin 7.9 L 7.1 L ABG Carboxyhemoglobin 1.5 1.9 H POC ABG HHb (Measured) 0.7 1.1 ABG Methemoglobin 1.0 0.9 Dayne Test Pos Pos A-a O2 Difference 378.0 304.0 Respiratory Index 1.4 3.9 Hgb O2 Saturation 96.8 96.1 Mechanical Rate 14 14 FiO2 100.0 60.0 Tidal Volume 500 500 PEEP 5 5 Sodium 136 Potassium 4.6 Chloride 95 L Carbon Dioxide 29 Anion Gap 17 BUN 38 H Creatinine 3.0 H Est GFR ( Amer) 18 Est GFR (Non-Af Amer) 15 Random Glucose 155 H Calcium 7.1 L Phosphorus 4.1 Magnesium 1.9 Total Bilirubin 1.5 H AST 27 ALT 40 Alkaline Phosphatase 212 H D Total Protein 4.3 L Albumin 2.2 L Globulin 2.1 L Albumin/Globulin Ratio 1.0 Complement C3 Complement C4 06/24/16 12:38 WBC 13.0 H RBC 2.35 L Hgb 6.9 L Hct 21.8 L MCV 92.5 MCH 29.5 MCHC 31.9 L RDW 16.4 H Plt Count 162 MPV 10.3 Neut % (Auto) 83.8 H Lymph % (Auto) 12.3 L Taylor % (Auto) 3.0 Eos % (Auto) 0.4 Baso % (Auto) 0.5 Neut # 10.9 H Lymph # 1.6 Taylor # 0.4 Eos # 0.0 Baso # 0.1 Neutrophils % (Manual) Band Neutrophils % Lymphocytes % (Manual) Monocytes % (Manual) Myelocytes % Differential Comment Platelet Estimate Polychromasia Hypochromasia (manual) Anisocytosis (manual) Ovalocytes PT 48.9 H* D INR 4.2 APTT 54 H D Puncture Site pCO2 pO2 HCO3 ABG pH ABG Total CO2 ABG O2 Saturation ABG Base Excess ABG Hemoglobin ABG Carboxyhemoglobin POC ABG HHb (Measured) ABG Methemoglobin Dayne Test A-a O2 Difference Respiratory Index Hgb O2 Saturation Mechanical Rate FiO2 Tidal Volume PEEP Sodium Potassium Chloride Carbon Dioxide Anion Gap BUN Creatinine Est GFR ( Amer) Est GFR (Non-Af Amer) Random Glucose Calcium Phosphorus Magnesium Total Bilirubin AST ALT Alkaline Phosphatase Total Protein Albumin Globulin Albumin/Globulin Ratio Complement C3 < 40.0 L Complement C4 < 8.0 L Critical Care Progress Note - Nutrition Nutrition: Nutrition Category Date Time Status Renal Diet [DIET] Diets 06/21/16 Breakfast Active
[2016-06-24] MEDS ORDERED: Vancomycin 1 gm/NS 200 ml 200 ML IVPB SCH (09:00)
[2016-06-24] MEDS: Aritificial Tears (15ml) OD SCH (09:50)
[2016-06-24] MEDS: Vitamins A & D Oint UD Foilpak TOP SCH (09:51)
[2016-06-24] MEDS: Linezolid 600 mg in D5W 300 ml 300 ML IVPB SCH ×2 (09:52→22:20)
--- NOTE | 2016-06-24 10:51 | CP.PCM.PN ---
Subjective - Date & Time of Evaluation Date of Evaluation: 06/24/16 Time of Evaluation: 10:49 - Subjective Subjective: Events noted. now sedated in ICU. No pressors- on PPNHas been on dilaysis for JONNY and fluid overload Rash improved; +VRE bacteremia ?RPGN - although ANCA negative s/p plat transfusion Objective - Vital Signs/Intake and Output Vital Signs (last 24 hours): Temp Pulse Resp BP Pulse Ox 99.4 F 77 17 101/44 L 99 06/24/16 08:00 06/24/16 10:00 06/24/16 10:00 06/24/16 10:00 06/24/16 10:00 Intake and Output: 06/24/16 06/24/16 06:59 18:59 Intake Total 983.1 293.6 Output Total 0 0 Balance 983.1 293.6 - Medications Medications: Current Medications Albuterol/Ipratropium (Duoneb 3 Mg/0.5 Mg (3 Ml) Ud) 3 ml INH RQ6 [facility] Last Admin: 06/24/16 07:57 Dose: 3 ml Artificial Tears (Artificial Tears) 1 ml OD DAILY [facility] Last Admin: 06/24/16 09:50 Dose: 1 drop Calcitriol (Rocaltrol) 0.25 mcg PO DAILY [facility] Last Admin: 06/24/16 09:54 Dose: 0.25 mcg Calcium Acetate (Phoslo) 1,334 mg PO TIDCC [facility] Last Admin: 06/24/16 09:54 Dose: 1,334 mg Diltiazem HCl (Cardizem) 60 mg PO Q8H [facility] Epoetin Reji (Procrit) 3,000 unit IV TTS [facility] Last Admin: 06/22/16 12:06 Dose: 3,000 unit Famotidine (Pepcid) 20 mg PO DAILY [facility] Last Admin: 06/24/16 09:51 Dose: 20 mg Fluconazole (Diflucan) 100 mg PO DAILY [facility] Last Admin: 06/24/16 09:51 Dose: 100 mg Cefepime HCl (Maxipime Iv 1 Gm Premix) 50 mls @ 100 mls/hr IVPB Q24H [facility] Last Admin: 06/23/16 17:41 Dose: 100 mls/hr Linezolid (Zyvox 600mg/300ml D5w) 300 mls @ 200 mls/hr IVPB Q12 [facility] Last Admin: 06/24/16 09:52 Dose: 200 mls/hr Propofol (Diprivan) 100 mls @ 2.422 mls/hr IV .Q24H PRN; Protocol; 5 MCG/KG/MIN PRN Reason: TITRATE PER MD ORDER Last Admin: 06/24/16 01:17 Dose: 2.422 mls/hr Tobramycin/Dexamethasone (Tobradex 0.3%-0.1% Opht Oint) 0 appl OU Q6 [facility] Last Admin: 06/24/16 07:35 Dose: 1 % Vitamin A (Vitamin A & D Oint Ud Foilpak) 1 ea TOP DAILY [facility] Last Admin: 06/24/16 09:51 Dose: 1 ea - Labs Labs: 06/24/16 06:21 06/24/16 06:21 PT 55.6 SECONDS (9.7-12.2) H* D 06/24/16 06:21 INR 4.7 D 06/24/16 06:21 APTT 59 SECONDS (21-34) H D 06/24/16 06:21 - Constitutional Appears: Toxic, In Acute Distress, Chronically Ill - Head Exam Head Exam: ATRAUMATIC, NORMAL INSPECTION - Neck Exam Neck Exam: Thyromegaly. absent: Tenderness - Respiratory Exam Respiratory Exam: Decreased Breath Sounds, Respiratory Distress - Cardiovascular Exam Cardiovascular Exam: REGULAR RHYTHM, +S1 - GI/Abdominal Exam GI & Abdominal Exam: Soft. absent: Tenderness - Extremities Exam Extremities Exam: Pedal Edema. absent: Tenderness - Neurological Exam Neurological Exam: Altered, Motor Sensory Deficit - Skin Skin Exam: Dry, Rash, Warm Assessment and Plan (1) CHF (congestive heart failure) Status: Acute (2) Cellulitis and abscess of leg Status: Acute (3) Hyponatremia Status: Resolved (4) CKD stage 5 secondary to hypertension Status: Acute (5) ESRD (end stage renal disease) Status: Suspected (6) Thrombocytopenia due to drugs Status: Acute - Assessment and Plan (Free Text) Plan: Repeat dialysis for fluid overload Check NAYANA, complemnts Continue EPO Monitor BP closely
--- NOTE | 2016-06-24 11:10 | CP.PCM.PN ---
Subjective - Date & Time of Evaluation Date of Evaluation: 06/24/16 Time of Evaluation: 08:35 - Subjective Subjective: Cardiology Progress Note for Dr. Jerome Patient seen and examined at bedside. Overnight patient was in respiratory distress and was intubated. As of now, she is sedated on propofol. Her was noticed to be tachycardic and irregular. ROS could not be obtained. Objective - Vital Signs/Intake and Output Vital Signs (last 24 hours): Temp Pulse Resp BP Pulse Ox 99.4 F 77 17 101/44 L 99 06/24/16 08:00 06/24/16 10:00 06/24/16 10:00 06/24/16 10:00 06/24/16 10:00 Intake and Output: 06/24/16 06/24/16 06:59 18:59 Intake Total 983.1 293.6 Output Total 0 0 Balance 983.1 293.6 - Medications Medications: Current Medications Albuterol/Ipratropium (Duoneb 3 Mg/0.5 Mg (3 Ml) Ud) 3 ml INH RQ6 [facility] Last Admin: 06/24/16 07:57 Dose: 3 ml Artificial Tears (Artificial Tears) 1 ml OD DAILY [facility] Last Admin: 06/24/16 09:50 Dose: 1 drop Calcitriol (Rocaltrol) 0.25 mcg PO DAILY [facility] Last Admin: 06/24/16 09:54 Dose: 0.25 mcg Calcium Acetate (Phoslo) 1,334 mg PO TIDCC [facility] Last Admin: 06/24/16 09:54 Dose: 1,334 mg Diltiazem HCl (Cardizem) 60 mg PO Q8H [facility] Epoetin Reji (Procrit) 10,000 unit IV TTS [facility] Famotidine (Pepcid) 20 mg PO DAILY [facility] Last Admin: 06/24/16 09:51 Dose: 20 mg Fluconazole (Diflucan) 100 mg PO DAILY [facility] Last Admin: 06/24/16 09:51 Dose: 100 mg Cefepime HCl (Maxipime Iv 1 Gm Premix) 50 mls @ 100 mls/hr IVPB Q24H [facility] Last Admin: 06/23/16 17:41 Dose: 100 mls/hr Linezolid (Zyvox 600mg/300ml D5w) 300 mls @ 200 mls/hr IVPB Q12 [facility] Last Admin: 06/24/16 09:52 Dose: 200 mls/hr Propofol (Diprivan) 100 mls @ 2.422 mls/hr IV .Q24H PRN; Protocol; 5 MCG/KG/MIN PRN Reason: TITRATE PER MD ORDER Last Admin: 06/24/16 01:17 Dose: 2.422 mls/hr Tobramycin/Dexamethasone (Tobradex 0.3%-0.1% Opht Oint) 0 appl OU Q6 [facility] Last Admin: 06/24/16 07:35 Dose: 1 % Vitamin A (Vitamin A & D Oint Ud Foilpak) 1 ea TOP DAILY [facility] Last Admin: 06/24/16 09:51 Dose: 1 ea - Labs Labs: 06/24/16 06:21 06/24/16 06:21 PT 55.6 SECONDS (9.7-12.2) H* D 06/24/16 06:21 INR 4.7 D 06/24/16 06:21 APTT 59 SECONDS (21-34) H D 06/24/16 06:21 - Constitutional Appears: No Acute Distress - Head Exam Head Exam: ATRAUMATIC, NORMAL INSPECTION, NORMOCEPHALIC - Eye Exam Eye Exam: PERRL Pupil Exam: PERRL - ENT Exam ENT Exam: Mucous Membranes Moist - Respiratory Exam Respiratory Exam: Rales (throughout all lung bradley ), Rhonchi (throughout all lung bradley ). absent: Clear to Ausculation Bilateral, Wheezes, Respiratory Distress - Cardiovascular Exam Cardiovascular Exam: Tachycardia, Irregular Rhythm, REGULAR RHYTHM, +S1, +S2. absent: Gallop, Rubs, Murmur - GI/Abdominal Exam GI & Abdominal Exam: Soft, Normal Bowel Sounds. absent: Rigid, Tenderness, Mass , Rebound - Extremities Exam Extremities Exam: Pedal Edema Additional comments: Bilateral redness on lower extremities +2 pitting edema - Skin Skin Exam: Dry, Warm Assessment and Plan - Assessment and Plan (Free Text) Assessment: This is an 86Y F with PMH HTN, HLD, CKD stage V, diverticulitis and arthritis found to have 1) Acute respiratory failure- pt now intubated on PRVC 2) Atrial Fibrillation- not rate or rhythm controlled 3) ESRD with fluid overload- on HD 4) Bilateral LE cellulitis 5) Transaminitis - resolved 6) Chronic anemia 7) HTN 8) HLD Plan: - Patient off of heparin drip - Continue Amiodarone drip, Cardizem - Echo showed EF of 61%, mild LVH, conduction abnormality, mild aortic regurgitation, aortic valve is mildly sclerotic, mitral annular calcification with mild regurgitation - Fluid overload then secondary to kidney failure not heart failure - Continue Hemodialysis as per nephro - Continue ventilation management as per ICU - Case seen, reviewed and discussed with Dr. Queenie Henriquez PGY1
[2016-06-24 11:24] LABS: MYELOCYTE 2 % (0-0); NEUTROPHIL 68 % (50-75); TOTAL CELLS COUNTED 100
[2016-06-24] MEDS ORDERED: Epoetin Alfa 10,000 unit/ml Dialysis IV SCH (11:30)
--- NOTE | 2016-06-24 12:40 | CP.PCM.PN ---
Subjective - Date & Time of Evaluation Date of Evaluation: 06/24/16 Time of Evaluation: 09:00 - Subjective Subjective: s/p resp arrest vre in blood iv rx in progress Objective - Vital Signs/Intake and Output Vital Signs (last 24 hours): Temp Pulse Resp BP Pulse Ox 99.4 F 81 20 114/51 L 97 06/24/16 08:00 06/24/16 11:00 06/24/16 11:00 06/24/16 11:00 06/24/16 11:00 Intake and Output: 06/24/16 06/24/16 06:59 18:59 Intake Total 983.1 317.6 Output Total 0 0 Balance 983.1 317.6 - Medications Medications: Current Medications Albuterol/Ipratropium (Duoneb 3 Mg/0.5 Mg (3 Ml) Ud) 3 ml INH RQ6 [facility] Last Admin: 06/24/16 07:57 Dose: 3 ml Artificial Tears (Artificial Tears) 1 ml OD DAILY [facility] Last Admin: 06/24/16 09:50 Dose: 1 drop Calcitriol (Rocaltrol) 0.25 mcg PO DAILY [facility] Last Admin: 06/24/16 09:54 Dose: 0.25 mcg Calcium Acetate (Phoslo) 1,334 mg PO TIDCC [facility] Last Admin: 06/24/16 09:54 Dose: 1,334 mg Diltiazem HCl (Cardizem) 60 mg PO Q8H [facility] Epoetin Reji (Procrit) 10,000 unit IV TTS [facility] Famotidine (Pepcid) 20 mg PO DAILY [facility] Last Admin: 06/24/16 09:51 Dose: 20 mg Fluconazole (Diflucan) 100 mg PO DAILY [facility] Last Admin: 06/24/16 09:51 Dose: 100 mg Cefepime HCl (Maxipime Iv 1 Gm Premix) 50 mls @ 100 mls/hr IVPB Q24H [facility] Last Admin: 06/23/16 17:41 Dose: 100 mls/hr Linezolid (Zyvox 600mg/300ml D5w) 300 mls @ 200 mls/hr IVPB Q12 [facility] Last Admin: 06/24/16 09:52 Dose: 200 mls/hr Propofol (Diprivan) 100 mls @ 2.422 mls/hr IV .Q24H PRN; Protocol; 5 MCG/KG/MIN PRN Reason: TITRATE PER MD ORDER Last Admin: 06/24/16 01:17 Dose: 2.422 mls/hr Tobramycin/Dexamethasone (Tobradex 0.3%-0.1% Opht Oint) 0 appl OU Q6 [facility] Last Admin: 06/24/16 07:35 Dose: 1 % Vitamin A (Vitamin A & D Oint Ud Foilpak) 1 ea TOP DAILY [facility] Last Admin: 06/24/16 09:51 Dose: 1 ea - Labs Labs: 06/24/16 06:21 06/24/16 06:21 PT 55.6 SECONDS (9.7-12.2) H* D 06/24/16 06:21 INR 4.7 D 06/24/16 06:21 APTT 59 SECONDS (21-34) H D 06/24/16 06:21 - Constitutional Appears: Cachectic - Head Exam Head Exam: NORMOCEPHALIC - Eye Exam Eye Exam: absent: Scleral icterus - ENT Exam ENT Exam: Mucous Membranes Dry - Neck Exam Neck Exam: absent: Lymphadenopathy - Respiratory Exam Respiratory Exam: Decreased Breath Sounds, Rhonchi - Cardiovascular Exam Cardiovascular Exam: REGULAR RHYTHM Assessment and Plan (1) Acidosis Status: Acute (2) Acute renal failure Status: Acute (3) Arterial, arteriole and capillary disease Status: Acute (4) CHF (congestive heart failure) Status: Acute (5) Hyponatremia Status: Resolved (6) Abdominal pain Status: Acute (7) Acute renal insufficiency Status: Acute (8) Breath shortness Status: Acute (9) Cellulitis and abscess of leg Status: Acute
[2016-06-24 13:01] LABS: INR 4.2
[2016-06-24 13:04] LABS: BASO # 0.1 K/uL (0.0-0.2); BASO % 0.5 % (0.0-2.0); EOS % 0.4 % (0.0-4.0); HEMATOCRIT 21.8 % (34.0-47.0); LYMPH # 1.6 K/uL (1.0-4.3); LYMPH % 12.3 % (20.0-40.0); MEAN CELL VOLUME 92.5 fL (81.0-99.0); MEAN CORPUSCULAR HEMOGLOBIN 29.5 pg (27.0-31.0); MEAN CORPUSCULAR HGB CONC 31.9 g/dL (33.0-37.0); MEAN PLATELET VOLUME 10.3 fL (7.2-11.7); MONO # 0.4 K/uL (0.0-0.8); NRBC % 0.1 % (0.0-2.0); RED CELL DISTRIBUTION WIDTH 16.4 % (11.5-14.5)
[2016-06-24] MEDS ORDERED: PPN#2 IV SCH (14:00)
[2016-06-24] MEDS: Cefepime IV 1 gm in Dextrose 50 ML IVPB SCH (14:22)
--- NOTE | 2016-06-24 14:49 | RAD ---
PROCEDURE: CHEST RADIOGRAPH, 1 VIEW HISTORY: Intubation/OGT placement COMPARISON: Comparison made with prior chest radiograph 06/23/2016. FINDINGS: LUNGS: Diffuse bilateral infiltrates could represent pneumonia or pulmonary edema/ CHF. Clinical correlation recommended. Small bilateral effusions right larger than left felt be present right larger than left. . PLEURA: No apparent pneumothorax. . CARDIOVASCULAR: Heart appears mildly enlarged. OSSEOUS STRUCTURES: No significant abnormalities. VISUALIZED UPPER ABDOMEN: Normal. OTHER FINDINGS: In situ ETT, tip of which lies approximately 3.5 cm above basilia. NGT is present, tip of which has not been included on this film though distal aspect does lie well below EG junction. No change right IJ dialysis catheter with tip in the SVC/RA junction. IMPRESSION: Support lines and tubes as above. Diffuse bilateral infiltrates could represent pulmonary edema/ CHF or bilateral pneumonia. . Small bilateral effusions felt be present right larger than left
[2016-06-24 15:43] LABS: HEPARIN-IND PLATELET AB Negative (Negative)
--- NOTE | 2016-06-24 16:41 | RAD ---
HISTORY: intubated COMPARISON: Comparison chest dated 06/24/2016 at 00:33 hours. FINDINGS: LUNGS: In situ ETT, tip of which lies approximately 3.68 cm above basilia. In situ NGT, tip of which has not been included on this film though distal aspect does lie below EG junction. Right IJ dialysis catheter with tips in the SVC/RA junction also unchanged. Mild diffuse bilateral infiltrates could represent pulmonary edema/ CHF or bilateral pneumonia. Bilateral effusions right larger than left PLEURA: No apparent pneumothorax. CARDIOVASCULAR: Cardiomegaly. OSSEOUS STRUCTURES: No significant abnormalities. VISUALIZED UPPER ABDOMEN: Normal. OTHER FINDINGS: None. IMPRESSION: Support lines and tubes as above. Diffuse bilateral infiltrates could represent pulmonary edema/ CHF or pneumonia. Bilateral effusions right larger than left
--- NOTE | 2016-06-24 17:24 | CP.PCM.PN ---
Subjective - Date & Time of Evaluation Date of Evaluation: 06/24/16 Time of Evaluation: 12:40 - Subjective Subjective: clinically same Objective - Vital Signs/Intake and Output Vital Signs (last 24 hours): Temp Pulse Resp BP Pulse Ox 98.4 F 75 16 106/42 L 99 06/24/16 16:00 06/24/16 16:00 06/24/16 16:00 06/24/16 16:00 06/24/16 16:00 Intake and Output: 06/24/16 06/24/16 06:59 18:59 Intake Total 983.1 704.2 Output Total 0 0 Balance 983.1 704.2 - Medications Medications: Current Medications Albuterol/Ipratropium (Duoneb 3 Mg/0.5 Mg (3 Ml) Ud) 3 ml INH RQ6 [facility] Last Admin: 06/24/16 13:26 Dose: 3 ml Artificial Tears (Artificial Tears) 1 ml OD DAILY [facility] Last Admin: 06/24/16 09:50 Dose: 1 drop Calcitriol (Rocaltrol) 0.25 mcg PO DAILY [facility] Last Admin: 06/24/16 09:54 Dose: 0.25 mcg Calcium Acetate (Phoslo) 1,334 mg PO TIDCC [facility] Last Admin: 06/24/16 14:23 Dose: 1,334 mg Diltiazem HCl (Cardizem) 60 mg PO Q8H [facility] Epoetin Reji (Procrit) 10,000 unit IV TTS [facility] Famotidine (Pepcid) 20 mg PO DAILY [facility] Last Admin: 06/24/16 09:51 Dose: 20 mg Fluconazole (Diflucan) 100 mg PO DAILY [facility] Last Admin: 06/24/16 09:51 Dose: 100 mg Cefepime HCl (Maxipime Iv 1 Gm Premix) 50 mls @ 100 mls/hr IVPB Q24H [facility] Last Admin: 06/24/16 14:22 Dose: 100 mls/hr Linezolid (Zyvox 600mg/300ml D5w) 300 mls @ 200 mls/hr IVPB Q12 [facility] Last Admin: 06/24/16 09:52 Dose: 200 mls/hr Amiodarone HCl 900 mg/ (Dextrose) 500 mls @ 16.66 mls/hr IV .Q24H ONE; 0.5 MG/ MIN PRN Reason: Protocol Stop: 06/25/16 14:42 Morphine Sulfate (Morphine) 2 mg IVP Q4 PRN PRN Reason: Anxiety Last Admin: 06/24/16 16:56 Dose: 2 mg Tobramycin/Dexamethasone (Tobradex 0.3%-0.1% Opht Oint) 0 appl OU Q6 [facility] Last Admin: 06/24/16 14:24 Dose: 1 % Vitamin A (Vitamin A & D Oint Ud Foilpak) 1 ea TOP DAILY [facility] Last Admin: 06/24/16 09:51 Dose: 1 ea - Labs Labs: 06/24/16 12:38 06/24/16 06:21 PT 48.9 SECONDS (9.7-12.2) H* D 06/24/16 12:38 INR 4.2 06/24/16 12:38 APTT 54 SECONDS (21-34) H D 06/24/16 12:38 - Constitutional Appears: Well - Head Exam Head Exam: ATRAUMATIC, NORMAL INSPECTION, NORMOCEPHALIC - Eye Exam Eye Exam: EOMI, Normal appearance, PERRL Pupil Exam: NORMAL ACCOMODATION, PERRL - ENT Exam ENT Exam: Mucous Membranes Moist, Normal Exam - Neck Exam Neck Exam: Full ROM, Normal Inspection. absent: Lymphadenopathy - Respiratory Exam Respiratory Exam: Decreased Breath Sounds - Cardiovascular Exam Cardiovascular Exam: REGULAR RHYTHM, +S1, +S2 - GI/Abdominal Exam GI & Abdominal Exam: Soft, Diminished Bowel Sounds - Rectal Exam Rectal Exam: Deferred
--- NOTE | 2016-06-24 17:38 | CP.PCM.PN ---
Subjective - Date & Time of Evaluation Date of Evaluation: 06/24/16 Time of Evaluation: 17:37 - Subjective Subjective: family requested for extubation and terminally extubated now no 55%VM family at bed side DNR Objective - Vital Signs/Intake and Output Vital Signs (last 24 hours): Temp Pulse Resp BP Pulse Ox 98.4 F 75 16 106/42 L 99 06/24/16 16:00 06/24/16 16:00 06/24/16 16:00 06/24/16 16:00 06/24/16 16:00 Intake and Output: 06/24/16 06/24/16 06:59 18:59 Intake Total 983.1 704.2 Output Total 0 0 Balance 983.1 704.2 - Medications Medications: Current Medications Albuterol/Ipratropium (Duoneb 3 Mg/0.5 Mg (3 Ml) Ud) 3 ml INH RQ6 [facility] Last Admin: 06/24/16 13:26 Dose: 3 ml Artificial Tears (Artificial Tears) 1 ml OD DAILY [facility] Last Admin: 06/24/16 09:50 Dose: 1 drop Calcitriol (Rocaltrol) 0.25 mcg PO DAILY [facility] Last Admin: 06/24/16 09:54 Dose: 0.25 mcg Calcium Acetate (Phoslo) 1,334 mg PO TIDCC [facility] Last Admin: 06/24/16 17:28 Dose: Not Given Diltiazem HCl (Cardizem) 60 mg PO Q8H [facility] Epoetin Reji (Procrit) 10,000 unit IV TTS [facility] Famotidine (Pepcid) 20 mg PO DAILY [facility] Last Admin: 06/24/16 09:51 Dose: 20 mg Fluconazole (Diflucan) 100 mg PO DAILY [facility] Last Admin: 06/24/16 09:51 Dose: 100 mg Cefepime HCl (Maxipime Iv 1 Gm Premix) 50 mls @ 100 mls/hr IVPB Q24H [facility] Last Admin: 06/24/16 14:22 Dose: 100 mls/hr Linezolid (Zyvox 600mg/300ml D5w) 300 mls @ 200 mls/hr IVPB Q12 [facility] Last Admin: 06/24/16 09:52 Dose: 200 mls/hr Amiodarone HCl 900 mg/ (Dextrose) 500 mls @ 16.66 mls/hr IV .Q24H ONE; 0.5 MG/ MIN PRN Reason: Protocol Stop: 06/25/16 14:42 Morphine Sulfate (Morphine) 2 mg IVP Q4 PRN PRN Reason: Anxiety Last Admin: 06/24/16 16:56 Dose: 2 mg Tobramycin/Dexamethasone (Tobradex 0.3%-0.1% Opht Oint) 0 appl OU Q6 [facility] Last Admin: 06/24/16 14:24 Dose: 1 % Vitamin A (Vitamin A & D Oint Ud Foilpak) 1 ea TOP DAILY [facility] Last Admin: 06/24/16 09:51 Dose: 1 ea - Labs Labs: 06/24/16 12:38 06/24/16 06:21 PT 48.9 SECONDS (9.7-12.2) H* D 06/24/16 12:38 INR 4.2 06/24/16 12:38 APTT 54 SECONDS (21-34) H D 06/24/16 12:38
[2016-06-24] MEDS ORDERED: Morphine Sulfate 250 MG in Dextrose 5% In Water 240 ML IV ONE (17:56)
[2016-06-24 19:44] LABS: UFH SRA RESULT Negative (Negative)
[2016-06-24 22:20] VITALS: BP 135/33; PULSE 46; RESP 14; TEMP 98.9; O2SAT 46
--- NOTE | 2016-06-24 22:51 | CP.PCM.PRO ---
Pronouncement of Note - Clinical Findings Physical Exam: No Response Verbal/Painful Stimuli, Absent Peripheral Pulses{ Carotid & Femoral}, Absent Heart & Breath Sounds, No Pupillary Light Reflex, No Corneal Reflex, Pupils Fixed & Dilated, Absence of Vital Signs - Pronouncement Time Time of Pronouncement of : 22:43 - Notifications Pronouncement Notifications: Family Notified Fire Services Plumber Notified: No - Autopsy Autopsy Requested: No
[2016-06-26 15:57] LABS: HEPARIN-IND PLATELET AB Negative (Negative)
== END 2016-06-25 00:30 | DRG 871 ==
LOC: C.ER 23:21 → C.9I 06-15 01:30 → C.6T 06-18 17:05 → C.9I 06-23 07:02
PROVIDERS: ADMIT Internal Medicine Nephrology; ATTEND Internal Medicine Nephrology
PROC: B543ZZA Ultrasonography of Right Jugular Veins, Guidance (ICD-10-PCS; 2016-06-17)
PROC: 5A1D60Z (ICD-10-PCS; 2016-06-17)
PROC: 05HM33Z Insertion of Infusion Device into Right Internal Jugular Vein, Percutaneous Approach (ICD-10-PCS; principal; 2016-06-17 15:45)
PROC: 30233N1 Transfusion of Nonautologous Red Blood Cells into Peripheral Vein, Percutaneous Approach (ICD-10-PCS; 2016-06-18)
PROC: 5A09457 Assistance with Respiratory Ventilation, 24-96 Consecutive Hours, Continuous Positive Airway Pressure (ICD-10-PCS; 2016-06-22)
PROC: 30233R1 Transfusion of Nonautologous Platelets into Peripheral Vein, Percutaneous Approach (ICD-10-PCS; 2016-06-23)
DX: A41.9 Sepsis, unspecified organism (principal); J96.01 Acute respiratory failure with hypoxia; N17.9 Acute kidney failure, unspecified; E87.2 Acidosis; D68.9 Coagulation defect, unspecified; N18.6 End stage renal disease; I12.0 Hypertensive chronic kidney disease with stage 5 chronic kidney disease or end stage renal disease; D69.2 Other nonthrombocytopenic purpura; L03.115 Cellulitis of right lower limb; E87.1 Hypo-osmolality and hyponatremia; L03.116 Cellulitis of left lower limb; N39.0 Urinary tract infection, site not specified; N03.9 Chronic nephritic syndrome with unspecified morphologic changes; I50.9 Heart failure, unspecified; D69.59 Other secondary thrombocytopenia; E78.00 Pure hypercholesterolemia, unspecified; I77.89 Other specified disorders of arteries and arterioles; E66.9 Obesity, unspecified; I73.9 Peripheral vascular disease, unspecified; K57.90 Diverticulosis of intestine, part unspecified, without perforation or abscess without bleeding; I48.91 Unspecified atrial fibrillation; L29.9 Pruritus, unspecified; E61.1 Iron deficiency; E78.5 Hyperlipidemia, unspecified; J45.909 Unspecified asthma, uncomplicated; K21.9 Gastro-esophageal reflux disease without esophagitis; D63.8 Anemia in other chronic diseases classified elsewhere; I45.10 Unspecified right bundle-branch block; K80.20 Calculus of gallbladder without cholecystitis without obstruction; Z66 Do not resuscitate; R13.10 Dysphagia, unspecified; Z87.440 Personal history of urinary (tract) infections; Z87.11 Personal history of peptic ulcer disease